=== PATIENT | male | born 1985 | race Caucasian/White ===

== ENCOUNTER 2019-04-08 09:28 | Emergency (ER) | payer OTHER, SELFPAY ==
[2019-04-08 09:28] VITALS: BP 150/104; PULSE 82; RESP 16; TEMP 36.6; O2SAT 97; BMI 38.2
--- NOTE | 2019-04-08 09:36 | CT_ITS ---
STUDY: CT ABDOMEN AND PELVIS WITHOUT CONTRAST REASON FOR EXAM: Male, 34 years old. Right lower quadrant pain with nausea and vomiting. RADIATION DOSAGE (If Supplied By Facility): CTDIvol = ( 23.54 ) mGy, DLP = ( 1456.82 ) mGycm TECHNIQUE: Transaxial images were obtained from the dome of the diaphragm to the symphysis pubis without oral contrast, and without intravenous contrast. Sagittal and coronal images were reconstructed. Individualized dose optimization techniques were used for this CT. COMPARISON: Comparison is made with prior study dated July 19, 2014. FINDINGS: The visualized lung bases are unremarkable. The visualized portions of the heart are within normal limits. Normal liver. Normal gallbladder and extrahepatic biliary system. Normal spleen. Normal pancreas. Normal bilateral adrenal glands. Mild degree of bright hydronephrosis and hydroureter due to a 5.2 mm calculus in the proximal right ureter just distal to the ureteropelvic junction. Mild degree of the perinephric stranding. Normal left kidney. Normal visualized stomach. Normal small intestine. Mild degree of circumferential wall thickening of the distal ileum and terminal ileum. This has improved as compared to prior study. The appendix is visualized and appears normal. Normal abdominal aorta. Normal inferior vena cava. There is borderline retroperitoneal lymphadenopathy with enlarged nodes no greater than 10mm in the short axis diameter. Normal urinary bladder. Normal abdominal wall. Minimal anterolisthesis of L5 on S1 with spondylolysis of the pars interarticularis of the L5 vertebrae. CT/Abdomen/Pelvis without Cont IMPRESSION: 5.2 mm calculus in the proximal right ureter just distal to the ureteropelvic junction causing mild right hydronephrosis and hydroureter. Thickening of the distal ileum and terminal ileum with no evidence of surrounding inflammatory change. Electronically Signed: Booker Burrows, at 10:37 EDT , Service support ,
--- NOTE | 2019-04-08 09:37 | ED.VISSUMM ---
- ER Visit Summary Date of Service: 04/08/19 Chief Complaint: [Abdominal pain] History of Present Illness: The patient is a 34 M [presents to the emergency department with complaint of pain to his right lower abdomen that started this morning. Patient states the pain initially was intermittent but now continuous. He rates it currently is a 6 out of 10. Patient states the pain radiates towards his right testicle. Patient states that over the weekend he had had some nondescript lower back pain as well. He denies urinary symptoms. He denies any fever. Patient has had 3 episodes of emesis this morning and also 3 episodes of loose stool. Patient has not had pain like this before. Patient has history of hypertension. He has no surgical history.] Physical Examination: [HEENT-PERRLA, EOMI. Cranial nerves II through XII grossly intact. TMs clear. Mucous membranes moist. No adenopathy. Cardiovascular-regular rate and rhythm without murmur or ectopy Lungs-clear to auscultation, chest wall stable without crepitus or subcu emphysema Abdomen-normoactive bowel sounds, soft. Patient has tenderness palpation over right lower quadrant with some guarding. There is no rebound, rigidity, or peritoneal signs. No real CVA tenderness on exam. Extremities-intact ?4, normal range of motion, normal pulses, atraumatic] Test Results: [CBC with differential obtained showed a white blood cell count of 8.6, hemoglobin 16, hematocrit 48, placed 251. Chemistries unremarkable. CT flank showed a 5.2 mm proximal ureteral stone with mild hydroureter. Urinalysis pending.] Emergency Department Course and Treatment: [She initially was medicated with Toradol 30 mg IV as well as morphine and Zofran. Patient had initially little pain relief and then was given a milligram of which reduces pain to a 1 out of 10. Case was discussed with urologist who recommends outpatient follow-up tomorrow with his office if we can get him under control from a pain perspective. Patient would prefer initially to go home and follow-up as an outpatient rather than admission for pain control.] Treatment Plan: [She will be given a prescription for Percocet as well as Zofran. Patient also will receive naproxen.] Disposition: [Discharged home in stable condition.] Impression: [Kidney stone with colic] This note was generated with [employer] dictation software. It may contain incorrect words, spelling, and punctuation that were not noted in review of the chart prior to signing ED Disposition - Plan for ED Patient: Referrals: Tomas Pinzon III, MD [Primary Care Provider] -
[2019-04-08] MEDS: Morphine 4 MG/ML Syringe IV (09:49)
[2019-04-08] MEDS: 0.9% Normal Saline 1,000 ML 125 ML IV ×2 (09:49→11:52)
[2019-04-08] MEDS: Ketorolac 30 MG/ML Syringe IV (09:50)
[2019-04-08] MEDS: Ondansetron 4 MG/2 ML Vial IV ×2 (09:50→11:52)
[2019-04-08 09:51] LABS: Absolute Lymphocyte Count 0.87 X10^3/uL (0.83-4.51); Absolute Neutrophil Count 6.8 X10^3/uL (2.0-7.7); Basophil# 0.05 X10^3/uL; Basophil% 0.6 % (0-1); Eosinophil# 0.11 X10^3/uL; Eosinophils% 1.3 % (0-5); Hematocrit 47.7 % (40-54); Hemoglobin 15.9 g/dL (13.0-16.5); Lymphocyte # 0.87 X10^3/ul (4.0); Lymphocyte % 10.2 % (19-41); Mean Corp Hgb Conc 33.3 g/dL (32-36); Mean Corpuscular Hgb 29.8 pg (27.0-32.0); Mean Corpuscular Volume 89.3 fL (80-94); Mean Platelet Vol. 9.8 fl (6.2-12.0); Monocyte# 0.72 X10^3/uL; Monocyte% 8.4 % (0-10); NRBC Flagged by Analyzer 0 % (0-5); Neutrophil # 6.78 X10^3/uL (2.7-7.7); Neutrophil % 79.1 % (47-70); Platelet Count 251 K/mm3 (150-450); RBC Distribution Width CV 11.8 % (11.6-14.6); RBC Distribution Width SD 38.6 fl (35.1-43.9); Red Blood Count 5.34 M/mm3 (4.6-6.2); White Blood Count 8.6 K/mm3 (4.4-11.0)
[2019-04-08 09:58] VITALS: BP 105/73
[2019-04-08 10:04] LABS: Anion Gap 7 (5-15); BUN 13 mg/dL (7-18); BUN/Creat Ratio 11.4 RATIO (10-20); Calcium,Total 9.1 mg/dL (8.5-10.1); Chloride 109 mmol/L (98-107); Creatinine, Serum 1.14 mg/dL (0.70-1.30); EST Glomerular Filtration Rate 78 mL/min (>60); Est Glom Filt Rate - Afr Amer 95 mL/min (>60); Estimated Creatinine Clearance 103.18 ml/min; Glucose 122 mg/dL (74-106); Potassium 3.9 mmol/L (3.5-5.1); Sodium Level 144 mmol/L (136-145)
[2019-04-08] MEDS: HYDROmorphone 1 MG/ML Syringe IV (10:51)
--- NOTE | 2019-04-08 11:13 | ED.DEP ---
ED Disposition - Plan for ED Patient: Instructions: KIDNEY STONE w/ Colic Prescriptions: Naproxen [Naprosyn] 500 mg PO BID PRN #20 tab Prescription Printed Oxycodone HCl/Acetaminophen [Percocet 5/325] 1 tab PO Q6H PRN PRN 3 Days #12 tab PRN Reason: Pain Prescription Printed Ondansetron [Zofran Odt] 4 mg PO Q8H PRN PRN #10 tab PRN Reason: Nausea Prescription Printed Referrals: Jesus Burgess MD [STAFF PHYSICIAN] - 1 Day
[2019-04-08 11:53] VITALS: BP 117/75; PULSE 55; RESP 16; O2SAT 95
[2019-04-08 12:01] LABS: Glucose, Dipstick Normal (Normal); Ketone-Dipstick 5 mg/dl (Negative); Leukocyte Esterase-Dipstick 25 /ul (Negative); Nitrite-Dipstick Negative (Negative); Occult Blood-Urine 250 /ul (Negative); Protein-Dipstick 100 mg/dl (Negative); Specific Gravity, Urine 1.025 (1.002-1.030); Urine Clarity Sl. Cloudy (Clear); Urine Urobilinogen 1 mg/dl (Normal)
[2019-04-08 12:02] LABS: Color, Urine DARK YELLOW (Yellow); Urine Bilirubin Dipstick 1 mg/dL (Negative)
[2019-04-08 12:09] LABS: Bacteria 2+ /hpf (None Seen); Calcium Oxalate Crystals Ur 2+ /hpf (<or=2+); Mucous, Urine 2+ /hpf (<or=2+); Red Blood Cells-Urine > 100 SEEN /hpf (0-5); Squamous Epithelial Cells - UA 0-5 SEEN /hpf (0-5); White Blood Cells 5-10 SEEN /hpf (0-5)
[2019-04-08 12:36] VITALS: BP 128/67; PULSE 71; RESP 15; O2SAT 99
== END 2019-04-08 12:38 | disposition home or self-care (01) ==
LOC: ED 09:44
PROVIDERS: Emergency Provider Emergency Medicine; Family Provider Family Medicine; PCP Family Medicine
DX: N13.2 Hydronephrosis with renal and ureteral calculous obstruction (principal); I10 Essential (primary) hypertension; R11.2 Nausea with vomiting, unspecified; Z79.899 Other long term (current) drug therapy
CPT/HCPCS: 74176; 80048; 81001; 85025; 96361; 96374; 96375; 96376; 99283; J7030; J2405

== ENCOUNTER → 2019-04-23 14:28 | Outpatient (CLI) | payer OTHER, SELFPAY ==
[2019-04-08 09:28] VITALS: BMI 38.2
--- NOTE | 2019-04-23 14:35 | RAD_ITS ---
STUDY: X-RAY - ABDOMEN/PELVIS REASON FOR EXAM: Male, 34 years old. Kidney stone TECHNIQUE: Two AP supine views of the abdomen and pelvis. COMPARISON: CT dated 04/08/2019 FINDINGS: There are no definite urinary calculi identified. The right ureteral stone seen on the prior CT is not identified on this exam. There is no bowel obstruction. There is air and stool to the level of the rectum. The visualized osseous structures are within normal limits. RAD/Abdomen Single View IMPRESSION: No definite urinary calculi identified. If indicated, further evaluation with CT can BE performed. No bowel obstruction. Electronically Signed: Angel Gallo, at 15:08 EDT Tel , Service support ,
== END ==
PROVIDERS: Family Provider Family Medicine; PCP Family Medicine; Referring Provider Urology; Visit Provider Urology
DX: N20.0 Calculus of kidney (principal)
CPT/HCPCS: 74018

== ENCOUNTER 2019-05-01 14:28 | Day surgery (SDC) | payer OTHER, SELFPAY ==
[2019-05-01 14:41] VITALS: BP 154/79; PULSE 80; RESP 18; TEMP 37.1; O2SAT 99; BMI 38.7
[2019-05-01] MEDS: Lactated Ringers 1,000 ML 100 ML IV (14:48)
--- NOTE | 2019-05-01 14:50 | CT_ITS ---
STUDY: CT ABDOMEN AND PELVIS WITHOUT CONTRAST REASON FOR EXAM: Male, 34 years old. History of right ureteral calculus. RADIATION DOSAGE (If Supplied By Facility): CTDIvol = ( 14.8 ) mGy, DLP = ( 840.76 ) mGycm TECHNIQUE: Transaxial images were obtained from the dome of the diaphragm to the symphysis pubis without oral contrast, and without intravenous contrast. Sagittal and coronal images were reconstructed. Individualized dose optimization techniques were used for this CT. COMPARISON: Comparison is made with prior study dated April 08, 2019. FINDINGS: The visualized lung bases are unremarkable. The visualized portions of the heart are within normal limits. Normal liver. Normal gallbladder and extrahepatic biliary system. Normal spleen. Normal pancreas. Normal bilateral adrenal glands. Mild residual right hydronephrosis and right hydroureter due to a 5.2 mm calculus in the mid distal aspect of the right ureter. This has migrated slightly, that as compared to prior study. Normal left kidney. Normal visualized stomach. Normal small intestine. Normal colon. The appendix is visualized and appears normal. Normal abdominal aorta. Normal inferior vena cava. Normal retroperitoneum. Normal urinary bladder. Normal abdominal wall. Normal osseous structures. CT/Abdomen/Pelvis without Cont IMPRESSION: Persistent 5.2 mm calculus in the mid distal portion of the right ureter causing mild right hydronephrosis and hydroureter. The calculus has migrated slightly, as compared to prior study. Electronically Signed: Booker Burrows, at 15:26 EDT , Service support ,
--- NOTE | 2019-05-01 15:42 | DCINST_ITS ---
Discharge Diet: Light diet - advance as tolerated Discharge Activity: Return to Normal Activity Call your doctor if your incision/area has: Continuous Slow Oozing, Sudden Increased Bleeding, Increased Pain/ Swelling, Increased Redness, Foul Smelling Discharge, Swelling at the incision site Call your doctor if you observe: Fever of 101 or Higher Suture Line Care: Avoid Pulling/Pushing, Avoid Pinching/Bending Instructions: Treating Kidney Stones: Ureteroscopic Stone Removal Allergies/Adverse Reactions: Allergies No Known Allergies Allergy (Verified 05/01/19 14:40) Medications to take at Discharge Allopurinol [Zyloprim] 600 mg PO QHS 07/19/14 Amlodipine [Norvasc] 5 mg PO QHS 07/19/14 Ciprofloxacin [Cipro] 500 mg PO BID #6 tab 05/01/19 Oxycodone HCl/Acetaminophen [Percocet 5/325] 1 tab PO Q4H PRN PRN 5 Days #14 tab 05/01/19 Phenazopyridine [Pyridium] 100 mg PO TID #14 tab 05/01/19 The following prescriptions were given: Ciprofloxacin [Cipro] 500 mg PO BID #6 tab Prescription Printed Oxycodone HCl/Acetaminophen [Percocet 5/325] 1 tab PO Q4H PRN PRN 5 Days #14 tab PRN Reason: Pain Prescription Printed Phenazopyridine [Pyridium] 100 mg PO TID #14 tab Prescription Printed Primary Care Physician: Tomas Pinzon III, MD [Primary Care Provider] - Test Results: Test results from this visit will be discussed in further detail at your follow- up appointment, if applicable. Please Follow Up With: Jesus Burgess MD When: please call to make an appointment.
[2019-05-01] MEDS: Cefazolin 2 GM in 0.9% Normal Saline 100 ML IV (15:51)
--- NOTE | 2019-05-01 16:21 | PCM.OPRPT ---
Report of Operation Date of Procedure: 05/01/19 Pre-Operative Diagnosis: Right ureteral calculi Post-Operative Diagnosis: Same Surgery/Procedure Performed:: Cystoscopy, right retrograde pyelogram, i interpretation of fluoroscopic images, balloon dilation of the right ureter, right ureteroscopy laser lithotripsy of stones and stent. Description of Surgical Findings:: 34-year-old male taken back to the operating room at the smooth induction of general anesthesia he was placed in dorsolithotomy position went to the bladder with a 21 Congolese rigid cystourethroscope the entire length urethra is normal pendulous urethra normal bulbar urethra normal prostate normal inside the bladder identified the trigone and cannulated the right ureteral orifice with a balloon dilator and a Glidewire performed a retrograde pyelogram could see the stone on the retrograde pyelogram still in the mid ureter and then advanced a wire up to the stone balloon dilated distal ureter with a 15 Congolese 10 cm balloon dilator once this was accomplished then over the wire went in with a flexible ureteroscope I encountered the stone and then used a 270 ?m laser fiber and performed laser lithotripsy and stone broke the stone up a little tiny pieces after lasering stone completely successfully, went up to the kidney, inspect the kidney of the stones, tiny fragments were seen along the course of the ureter put a wire up into the kidney on the right side, then placed a stent 6 Congolese by 26 cm stent with a string of the stent for easy extraction and then pulled the wire and the stent coiled in the kidney and bladder in good position patient, anesthetic reversed plan to see him back next week with a KUB and if everything is clear we will pull the stent. Type of Anesthesia:: General Drains: stent - Admit VTE Documentation VTE Present on Admission: No VTE Mechan Device Prophylaxis: SCD's
[2019-05-01 16:34] VITALS: BP 154/79; BP 171/102; PULSE 78; RESP 16; TEMP 36.6; O2SAT 95
[2019-05-01 16:45] VITALS: BP 141/90; BP 154/79; PULSE 75; RESP 16; O2SAT 93
[2019-05-01 17:00] VITALS: BP 154/79; BP 171/109; PULSE 60; RESP 16; O2SAT 95
[2019-05-01] MEDS: Ketorolac 15 MG/ML Vial IV (17:00)
[2019-05-01 17:10] VITALS: BP 149/97; BP 154/79; PULSE 70; RESP 16; TEMP 36.5; O2SAT 92
[2019-05-01 17:51] VITALS: BP 152/98; BP 154/79; PULSE 60; RESP 16; TEMP 36.2; O2SAT 95
== END 2019-05-01 18:05 | disposition home or self-care (01) ==
LOC: SDC 14:32 → AC 14:33
PROVIDERS: Family Provider Family Medicine; PCP Family Medicine; Referring Provider Urology; Visit Provider Urology
PROC: 0TJ98ZZ Inspection of Ureter, Via Natural or Artificial Opening Endoscopic (ICD-10-PCS; CPT 52352; principal; 2019-05-01 16:15)
DX: N20.2 Calculus of kidney with calculus of ureter (principal); R31.29 Other microscopic hematuria; I10 Essential (primary) hypertension; M10.9 Gout, unspecified; Z79.899 Other long term (current) drug therapy
CPT/HCPCS: 52356; 74176; 76000; J7120; C1726; C1769; C2617; J2405

== ENCOUNTER → 2021-06-11 08:47 | Outpatient (CLI) | payer OTHER, SELFPAY ==
[2021-06-11 09:52] LABS: Absolute Neutrophil Count 5.6 X10^3/uL (2.0-7.7); Basophil# 0.07 X10^3/uL; Basophil% 0.9 % (0-1); Eosinophil# 0.11 X10^3/uL; Eosinophils% 1.3 % (0-5); Hematocrit 49.4 % (40-54); Hemoglobin 16.3 g/dL (13.0-16.5); Lymphocyte % 20.8 % (19-41); Mean Corpuscular Hgb 29.2 pg (27.0-32.0); Mean Corpuscular Volume 88.4 fL (80-94); Mean Platelet Vol. 9.7 fl (6.2-12.0); Monocyte# 0.67 X10^3/uL; Monocyte% 8.2 % (0-10); NRBC Flagged by Analyzer 0 % (0-5); Neutrophil # 5.58 X10^3/uL (2.7-7.7); Neutrophil % 68.4 % (47-70); Platelet Count 319 K/mm3 (150-450); RBC Distribution Width CV 12.2 % (11.6-14.6); RBC Distribution Width SD 39.6 fl (35.1-43.9); Red Blood Count 5.59 M/mm3 (4.6-6.2); White Blood Count 8.2 K/mm3 (4.4-11.0)
[2021-06-11 10:21] LABS: ALB/GLOB Ratio 1.1 RATIO (0.9-2.4); AST(SGOT) 29 U/L (15-37); Alanine Aminotransfer ALT/SGPT 47 U/L (16-61); Albumin, Serum 4.1 g/dL (3.2-5.0); Alkaline Phosphatase 85 U/L (45-117); Anion Gap 9 (5-15); BUN 11 mg/dL (7-18); BUN/Creat Ratio 11.6 RATIO (10-20); Calcium,Total 9.4 mg/dL (8.5-10.1); Chloride 103 mmol/L (98-107); Cholesterol 182 mg/dL (200); Creatinine, Serum 0.95 mg/dL (0.70-1.30); EST Glomerular Filtration Rate 96 mL/min (>60); Est Glom Filt Rate - Afr Amer 116 mL/min (>60); Globulin 3.8 g/dL (2.2-4.2); Glucose 102 mg/dL (74-106); High Density Lipoprotein 36 mg/dL; Lipase 127 U/L (73-393); Potassium 4.1 mmol/L (3.5-5.1); Protein, Total 7.9 g/dL (6.4-8.2); Sodium Level 137 mmol/L (136-145); Thyroid Stim Hormone (TSH) 1.06 uIU/mL (0.358-3.74); Triglycerides 222 mg/dL; Uric Acid 6.5 mg/dL (3.5-7.2); Very Low Density Lipoprotein 44 mg/dL (5-40)
[2021-06-11 10:52] LABS: Hepatitis C Antibody Non-Reactive (Nonreactive)
[2021-06-14 16:09] LABS: Endomysial Antibody IgA Negative (Negative)
[2021-06-14 19:34] LABS: Deamidated Gliadin IgA 4 units (0-19); Deamidated Gliadin IgG 1 units (0-19); Immunoglobulin A 204 mg/dL (90-386); t-Transglutaminase IgA <2 U/mL (0-3)
== END ==
PROVIDERS: PCP Family Medicine; Referring Provider Family Medicine; Visit Provider Family Medicine
DX: I10 Essential (primary) hypertension (principal); R19.7 Diarrhea, unspecified; M10.9 Gout, unspecified; R10.10 Upper abdominal pain, unspecified; Z13.220 Encounter for screening for lipoid disorders
CPT/HCPCS: 36415; 80053; 80061; 82784; 83516; 83690; 84443; 84550; 85025; 86255; 86803

== ENCOUNTER → 2021-06-17 08:14 | Outpatient (CLI) | payer OTHER, SELFPAY ==
--- NOTE | 2021-06-17 08:28 | US_ITS ---
STUDY: ABDOMINAL ULTRASOUND - RIGHT UPPER QUADRANT REASON FOR VISIT: Male, 36 years old PAIN , STOOL COLOR CHANGE, FAMILY HX BILIARY DISEASE TECHNIQUE: Ultrasound evaluation of the right upper quadrant was performed with real-time and static alfaro-scale imaging. TECHNICAL QUALITY: Limited. Examination limited by bowel gas. COMPARISON: None. FINDINGS: Liver: The liver measures 18.4 cm. There is increased echogenicity consistent with fatty infiltration. The bile ducts are within normal limits. There is hepatic color flow. The direction of portal flow is hepatopetal. There is no demonstrated mass lesion. Gallbladder: Normal distended gallbladder. The gallbladder wall measures 2.6 mm. There is a negative sonographic Plata''s sign. There is no pericholecystic fluid. There are no gallstones. Common Bile Duct (C.B.D.): The common bile duct measures 3. mm. Pancreas: Normal size of the head, body and tail of the pancreas. There is increased echogenicity of the pancreas. There is no demonstrated pancreatic mass or cyst. Right Kidney: Normal size of the right kidney. The right kidney measures 12.3 cm x 5.4 cm x 4.7 cm. Normal renal cortex. The right cortex measures 1.3 cm. There is no demonstrated renal mass or cyst. There is no right hydronephrosis. US/Abdomen Limited IMPRESSION: Borderline hepatomegaly. Fatty infiltration of the liver. Electronically Signed: Booker Burrows MD at 9:53 EDT , Service support ,
== END ==
PROVIDERS: PCP Family Medicine; Visit Provider Family Medicine
DX: R10.10 Upper abdominal pain, unspecified (principal); R19.7 Diarrhea, unspecified
CPT/HCPCS: 76705; 87177; 87209

== ENCOUNTER → 2021-07-05 09:17 | Outpatient (CLI) | payer OTHER, SELFPAY ==
--- NOTE | 2021-07-05 09:25 | NM_ITS ---
CLINICAL: 34-year-old male with reported history of abdominal pain. RADIONUCLIDE HEPATOBILIARY SCINTIGRAPHY COMPARISON: Abdominal ultrasound report 06/17/2021 FINDINGS: Following the intravenous administration of 5.2 mCi of 99m Tc Mebrofenin, hepatobiliary images reveal: 1. Relatively prompt and homogeneous radiopharmaceutical concentration is noted by a normal sized liver. No parenchymal defects are identified. 2. Gallbladder activity is identified at 15 minutes post radiopharmaceutical administration. 3. Small intestinal tract is observed at 30 minutes following tracer provision. 4. Washout of the radiopharmaceutical by the hepatic parenchyma appears qualitatively normal. Cholecystokinin (0.02 ug/kg) was administered intravenously over a 30-minute period. The post CCK gallbladder ejection fraction calculated at 20 minutes following Cholecystokinin administration was noted to be 52.0 % (normal greater than 35%). During 30 minutes of post CCK imaging, quantitative refilling of the gallbladder is observed. There is scintigraphic evidence of post CCK duodenal gastric reflux. NM/Hepatobilliary Img w/Pharm Int IMPRESSION: 1. A gallbladder ejection fraction calculated to be greater than 35% following the administration of Cholecystokinin makes the probability of functional hepatobiliary disease (gallbladder dyskinesia) and/or organic hepatobiliary disease (chronic acalculous cholecystitis and/or cystic duct syndrome) to be low. (Michael Glover et al, Journal of Nuclear Medicine 32:1695, 1990). 2. There is scintigraphic evidence of post CCK duodenal-gastric reflux. (Mayito et al, Nucl Med Sandrine Preeti Press pg. 35, 1980). 3. An encountered normal gallbladder ejection fraction with refilling of the gallbladder following CCK administration may represent the presence of Sphincter of Oddi dysfunction. Correlation with Sphincter of Oddi manometry may be of benefit. (Rosalba and Rosalba, J Nucl Med 38:1824, 1997). Electronically Signed: Med You DO at 22:36 EDT Tel , Service support ,
== END ==
PROVIDERS: PCP Family Medicine; Referring Provider Family Medicine; Visit Provider Family Medicine
DX: R10.10 Upper abdominal pain, unspecified (principal)
CPT/HCPCS: 78227; A9537; J2805

== ENCOUNTER → 2021-08-03 11:48 | Outpatient (CLI) | payer OTHER, SELFPAY ==
[2021-08-03 12:14] LABS: Erythrocyte Sedimentation Rate 17 mm/hr (0-20)
[2021-08-03 12:18] LABS: Absolute Neutrophil Count 8.1 X10^3/uL (2.0-7.7); Basophil# 0.06 X10^3/uL; Basophil% 0.6 % (0-1); Eosinophil# 0.03 X10^3/uL; Eosinophils% 0.3 % (0-5); Hematocrit 48.9 % (40-54); Hemoglobin 16.4 g/dL (13.0-16.5); Lymphocyte % 15.4 % (19-41); Mean Corp Hgb Conc 33.5 g/dL (32-36); Mean Corpuscular Hgb 28.9 pg (27.0-32.0); Mean Corpuscular Volume 86.1 fL (80-94); Mean Platelet Vol. 9.4 fl (6.2-12.0); Monocyte# 0.59 X10^3/uL; Monocyte% 5.7 % (0-10); NRBC Flagged by Analyzer 0 % (0-5); Neutrophil # 8.07 X10^3/uL (2.7-7.7); Neutrophil % 77.7 % (47-70); Platelet Count 435 K/mm3 (150-450); RBC Distribution Width CV 12.2 % (11.6-14.6); RBC Distribution Width SD 38.5 fl (35.1-43.9); Red Blood Count 5.68 M/mm3 (4.6-6.2); White Blood Count 10.4 K/mm3 (4.4-11.0)
[2021-08-03 13:00] LABS: ALB/GLOB Ratio 1.1 RATIO (0.9-2.4); AST(SGOT) 20 U/L (15-37); Alanine Aminotransfer ALT/SGPT 32 U/L (16-61); Albumin, Serum 4.4 g/dL (3.2-5.0); Alkaline Phosphatase 94 U/L (45-117); Anion Gap 8 (5-15); BUN 9 mg/dL (7-18); CRP < 2.90 mg/L (0.0-3.0); Calcium,Total 10.1 mg/dL (8.5-10.1); Chloride 103 mmol/L (98-107); EST Glomerular Filtration Rate 90 mL/min (>60); Est Glom Filt Rate - Afr Amer 109 mL/min (>60); Globulin 4.1 g/dL (2.2-4.2); Glucose 102 mg/dL (74-106); LDH 208 U/L (87-241); Potassium 3.9 mmol/L (3.5-5.1); Protein, Total 8.5 g/dL (6.4-8.2); Sodium Level 137 mmol/L (136-145); Thyroid Stim Hormone (TSH) 1.19 uIU/mL (0.358-3.74)
[2021-08-06 06:07] LABS: Endomysial Antibody IgA Negative (Negative); Immunoglobulin A 260 mg/dL (90-386); Immunoglobulin E 36 IU/mL (6-495); Immunoglobulin G 938 mg/dL (603-1613)
[2021-08-06 08:18] LABS: Immunoglobulin M 93 mg/dL (20-172); t-Transglutaminase IgA <2 U/mL (0-3)
== END ==
PROVIDERS: PCP Family Medicine; Referring Provider Internal Medicine Gastroenterology; Visit Provider Internal Medicine Gastroenterology
DX: R19.7 Diarrhea, unspecified (principal)
CPT/HCPCS: 36415; 80053; 82784; 82785; 83516; 83615; 84443; 85025; 85652; 86140; 86255

== ENCOUNTER → 2021-08-04 | Outpatient (CLI) | payer OTHER, SELFPAY ==
[2021-08-06 08:18] LABS: Giardia Lamblia, Stool EIA Negative (Negative)
== END | disposition home or self-care (01) ==
LOC: LABSPEC 06:29
PROVIDERS: PCP Family Medicine; Referring Provider Internal Medicine Gastroenterology; Visit Provider Internal Medicine Gastroenterology
DX: R19.7 Diarrhea, unspecified (principal)
CPT/HCPCS: 87329; 87493

== ENCOUNTER → 2021-08-12 07:05 | Outpatient (CLI) | payer OTHER, SELFPAY ==
--- NOTE | 2021-08-12 07:08 | US_ITS ---
STUDY: ABDOMINAL ULTRASOUND - ELASTOGRAPHY REASON FOR VISIT: Male, 36 years old. Fatty infiltration of the liver. TECHNIQUE: Liver stiffness measurements were obtained on a Owlr RS 85 ultrasound machine using a CA 1-7 probe following the SRU guidelines. 3 measurements were obtained using a 2-D-SWE method. The IQR/M was 16% suggesting a quality data set. TECHNICAL QUALITY: Adequate. COMPARISON: Comparison is made with prior examination dated 06/17/2021. FINDINGS: Liver: Fatty infiltration of the liver. Median liver stiffness measured 8 kPa. US/Elastography Parenchyma/Organ IMPRESSION: Liver stiffness measures 8 kPa compatible with F2 Metavir score. Electronically Signed: Booker Burrows MD at 8:52 EST , Service support ,
== END ==
PROVIDERS: PCP Family Medicine; Referring Provider Internal Medicine Gastroenterology; Visit Provider Internal Medicine Gastroenterology
DX: K76.0 Fatty (change of) liver, not elsewhere classified (principal)
CPT/HCPCS: 76981

== ENCOUNTER → 2021-08-13 15:49 | Outpatient (CLI) | payer OTHER, SELFPAY ==
[2021-08-13 17:06] LABS: Hemoglobin A1c 5.1 % (3.8-5.6)
== END ==
PROVIDERS: Nurse Practitioner Adult Health; PCP Family Medicine; Visit Provider Nurse Practitioner Gerontology
DX: K76.0 Fatty (change of) liver, not elsewhere classified (principal); E66.9 Obesity, unspecified
CPT/HCPCS: 36415; 83036

== ENCOUNTER 2021-09-24 07:56 | Outpatient (CLI) | payer OTHER, SELFPAY ==
--- NOTE | 2021-09-24 07:58 | CT_ITS ---
STUDY: CT ABDOMEN AND PELVIS WITH CONTRAST REASON FOR EXAM: Male, 36 years old. IBD workup. 2 left history of upper abdominal pain and diarrhea. RADIATION DOSAGE (If Supplied By Facility): CTDIvol = ( 17.02 ) mGy, DLP = ( 1434.3 ) mGycm TECHNIQUE: Transaxial images were obtained from the dome of the diaphragm to the symphysis pubis with oral contrast. Oral and amp; IV Readi-CAT and amp; 100mL Isovue-300 was administered. Sagittal and coronal images were reconstructed. Individualized dose optimization techniques were used for this CT. COMPARISON: Comparison is made with prior study dated 05/01/2019. FINDINGS: The visualized lung bases are unremarkable. The visualized portions of the heart are within normal limits. Normal liver. Normal gallbladder and extrahepatic biliary system. Normal spleen. Normal pancreas. Normal bilateral adrenal glands. Normal right kidney. Normal left kidney. Normal visualized stomach. There is evidence of circumferential wall thickening and mild inflammatory changes in the terminal ileum. This extends into the region of the ileocecal valve and proximal cecum. This is in keeping with the Crohn''s disease. Normal colon. The appendix is visualized and appears normal. Normal abdominal aorta. Normal inferior vena cava. There is borderline retroperitoneal lymphadenopathy with enlarged nodes no greater than 10mm in the short axis diameter. Normal urinary bladder. Normal abdominal wall. Normal osseous structures. CT/Abdomen/Pelvis WITH Contrast IMPRESSION: Circumferential wall thickening and mild degree inflammatory changes involving the terminal ileum with extension into the region of the ileocecal valve and proximal cecum. This is in keeping with the Crohn''s disease. Electronically Signed: Booker Burrows MD at 9:20 EST , Service support ,
[2021-09-24 08:20] LABS: CREATININE FINGERSTICK 0.9 mg/dL (0.70-1.30); EGFR FINGERSTICK > 60.0000 mL/min (>60)
== END 2021-09-24 23:59 | disposition short-term general hospital (02) ==
LOC: CT 07:58
PROVIDERS: PCP Family Medicine; Referring Provider Internal Medicine Gastroenterology; Visit Provider Internal Medicine Gastroenterology
DX: R19.7 Diarrhea, unspecified (principal)
CPT/HCPCS: 74177; Q9967

== ENCOUNTER 2021-10-12 08:41 | Outpatient (CLI) | payer OTHER, SELFPAY ==
[2021-10-12 09:54] LABS: Absolute Lymphocyte Count 1.82 X10^3/uL (0.83-4.51); Absolute Neutrophil Count 5.8 X10^3/uL (2.0-7.7); Basophil# 0.05 X10^3/uL; Basophil% 0.6 % (0-1); Eosinophil# 0.06 X10^3/uL; Eosinophils% 0.7 % (0-5); Hemoglobin 16.2 g/dL (13.0-16.5); Lymphocyte # 1.82 X10^3/ul (0.83-4.51); Mean Corp Hgb Conc 33.1 g/dL (32-36); Mean Corpuscular Hgb 29.6 pg (27.0-32.0); Mean Corpuscular Volume 89.6 fL (80-94); Mean Platelet Vol. 9.8 fl (6.2-12.0); Monocyte# 0.55 X10^3/uL; Monocyte% 6.6 % (0-10); NRBC Flagged by Analyzer 0 % (0-5); Neutrophil # 5.78 X10^3/uL (2.7-7.7); Neutrophil % 69.7 % (47-70); Platelet Count 340 K/mm3 (150-450); RBC Distribution Width CV 12.5 % (11.6-14.6); Red Blood Count 5.47 M/mm3 (4.6-6.2); White Blood Count 8.3 K/mm3 (4.4-11.0)
[2021-10-12 10:03] LABS: Erythrocyte Sedimentation Rate 23 mm/hr (0-20)
[2021-10-12 10:25] LABS: ALB/GLOB Ratio 1.1 RATIO (0.9-2.4); AST(SGOT) 16 U/L (15-37); Alanine Aminotransfer ALT/SGPT 33 U/L (16-61); Albumin, Serum 3.9 g/dL (3.2-5.0); Alkaline Phosphatase 80 U/L (45-117); Anion Gap 6 (5-15); BUN 12 mg/dL (7-18); BUN/Creat Ratio 13.2 RATIO (10-20); CRP < 2.90 mg/L (0.0-3.0); Calcium,Total 9.3 mg/dL (8.5-10.1); Chloride 106 mmol/L (98-107); Creatinine, Serum 0.91 mg/dL (0.70-1.30); EST Glomerular Filtration Rate 100 mL/min (>60); Est Glom Filt Rate - Afr Amer 121 mL/min (>60); Globulin 3.7 g/dL (2.2-4.2); Glucose 96 mg/dL (74-106); LDH 188 U/L (87-241); Potassium 3.7 mmol/L (3.5-5.1); Protein, Total 7.6 g/dL (6.4-8.2); Sodium Level 140 mmol/L (136-145)
[2021-10-16 17:07] LABS: HEPATITIS B SURFACE AG Negative (Negative); Hepatitis A IgM Antibody Negative (Negative); Hepatitis B Core AB IgM Negative (Negative); Immunoglobulin A 213 mg/dL (90-386); Immunoglobulin E 60 IU/mL (6-495); Immunoglobulin G 832 mg/dL (603-1613); QNTFERON TB Mitogen Value > 10.00 IU/mL (.); QNTFERON TB Nil Value 0.02 IU/mL (.); QNTFERON TB1+ Ag Value 0.04 IU/mL (.); QNTFERON TB2+ Ag Value 0.02 IU/mL (.)
[2021-10-17 08:35] LABS: Hep C Antibodies <0.1 s/co ratio (0.0-0.9); Immunoglobulin M 94 mg/dL (20-172); QNTIFERON TB Positive Criteria Negative (Negative)
== END 2021-10-12 23:59 | disposition home or self-care (01) ==
LOC: LAB 08:42
PROVIDERS: PCP Family Medicine; Referring Provider Internal Medicine Gastroenterology; Visit Provider Internal Medicine Gastroenterology
DX: R19.7 Diarrhea, unspecified (principal)
CPT/HCPCS: 36415; 80053; 80074; 82784; 82785; 83615; 85025; 85652; 86140; 86480

== ENCOUNTER 2021-11-12 10:02 | Outpatient (CLI) | payer OTHER, SELFPAY ==
[2021-11-12 11:51] LABS: HIV - WCH Non-Reactive (Nonreactive); Rubella IgG Reactive (Nonreactive)
[2021-11-16 16:46] LABS: B. pertussis IgG 1.88 index (0.00-0.94); Mumps Antibody, IgM 3.12 AU (0.00-0.79); V-Zoster IgG (Immunity) 1159 index (Immune >165)
== END 2021-11-12 23:59 | disposition home or self-care (01) ==
LOC: LAB 10:03
PROVIDERS: PCP Family Medicine; Visit Provider Internal Medicine Gastroenterology
DX: K50.90 Crohn's disease, unspecified, without complications (principal)
CPT/HCPCS: 36415; 86703; 86735; 86762; 86787

== ENCOUNTER 2021-12-06 14:13 | Outpatient (CLI) | payer OTHER, SELFPAY ==
[2021-12-06] MEDS: 0.9% NaCl Peripheral Flush Adult/Peds IV (14:24)
[2021-12-06] MEDS: 0.9% NaCl IVPB Med Flush (250 mL) 15 ML IV (14:44)
[2021-12-06 14:50] VITALS: BP 145/82; PULSE 75; RESP 16; O2SAT 98
[2021-12-06 16:08] VITALS: BP 144/88; PULSE 66; RESP 16; TEMP 36.1; O2SAT 100
== END 2021-12-06 23:59 | disposition home or self-care (01) ==
LOC: MEDOUTP 14:14
PROVIDERS: PCP Family Medicine; Referring Provider Internal Medicine Gastroenterology; Visit Provider Internal Medicine Gastroenterology
DX: K50.90 Crohn's disease, unspecified, without complications (principal)
CPT/HCPCS: 96365; J7050; A4216; J3358

== ENCOUNTER 2021-12-09 06:09 | Day surgery (SDC) | payer OTHER, SELFPAY ==
[2021-12-09 06:34] VITALS: BP 149/86; PULSE 59; RESP 18; TEMP 36.8; O2SAT 99; BMI 36.9
[2021-12-09] MEDS: Lactated Ringers 1,000 ML 15 ML IV (06:40)
--- NOTE | 2021-12-09 07:12 | PCM.HP.BLA ---
History and Physical Date of Admission: 12/09/21 KALEIGH BLACK, is a 36 M who presents to the office today for the evaluation of occasional dysphagia, bloating, nausea, decreased appetite and mucousy stools. This originally started back in 2013 when he was having some mucousy stools. His stools were checked for enteric pathogens. That was negative along with being checked for ova and parasites. That was negative. He had a colonoscopy that did not show any abnormalities. Biopsies throughout the colon did not show any abnormalities. He also had an upper endoscopy that showed mild reflux disease and mild gastritis in the stomach. Biopsies did not reveal any signs of microscopic colitis. Biopsies were positive for gastritis which was H. pylori negative. He is having difficulty with nonlocalized abdominal pain of varying intensitry throughout his abdomen being present for the last six months with increase in frequency and intensity in the last couple of days. Increased mucous noted in his stool which is typically diarrhea for last five days. Normal bowel movements are a liquid yellow color for the last six months. Reports pressure in his throat without difficulty swallowing but with mild regurgitation with belching. 06/17/21 abdomen ultrasound showed liver measurement 18.4cm with fatty infiltration. HIDA scan performed 07/05/21 gallbladder ejection fraction greated than 35%. Scintigraphic evidence of post CCK duodenal-gastric reflux. Possible presence of Sphincter of Oddi dysfunction. Galbladder is present. He recently underwent IBD SGI testing after having more weight loss and diarrhea and it was positive for Crohn's disease. ROS Const Constitutional: Positive for fatigue and weight change Gastro GI: Positive for abdominal pain, change in bowel habits, diarrhea, heartburn and nausea/dyspepsia Musc Musculoskeletal: Positive for back pain Endo Endocrine: Positive for fatigue and weight change Exam Const General: cooperative and comfortable Nutritional Appearance: average body habitus and well nourished [facility] Head: normal to inspection Ears: hearing grossly normal bilaterally Nose: external nose normal Face and sinus: normal facial exam Mouth: oral mucosae normal Throat: posterior oropharynx normal Eyes General: appearance normal, both eyes and all related structures Neck Neck: normal visual inspection Chest Chest palpation & inspection: normal inspection of the chest and normal palpation of entire chest wall Resp Effort & Inspection: normal respiratory effort Auscultation: Bilateral: Clear to Auscultation Cardio Palpation: normal PMI Rate: regular rate Rhythm: regular rhythm GI Inspection: normal to inspection Auscultation: normal bowel sounds Percussion: normal to percussion Palpation: no hepatosplenomegaly Skin General: no rashes or lesions noted Neuro General: patient alert Extrem General: normal to inspection Psych Affect: normal affect Quality Reporting Tobacco Screening ([facility] 138) Smoking Status: Never smoker Assessment and Plan Assessment and Plan (1) Diarrhea: Status: Acute Orders: Orders: CRP Today Erythrocyte Sed Rate Today Giardia Lamblia, Stool EIA Today Comprehensive Metabolic Profil Today LDH Today Thyroid Stim Hormone (TSH) Today CBC W/Diff, Automated Today CDIFF (PCR) Today Celiac Disease Profile Today Immunoglobulin E Today Immunoglobulin G Today Immunoglobulin M Today Plan - Dr. Mcmullen Friend, DO: His diarrhea sounds like he has IBS with diarrhea. He may be a good candidate for Xifaxan therapy I will check his stools for Giardia. I will also check his blood for any inflammatory markers, celiac disease, and check his antibody levels, along with his thyroid. He will be on hyoscyamine every 6 hours as needed for crampy abdominal pain. (2) Fatty liver disease, nonalcoholic: Status: Acute Patient Instructions: We will have to get a elastography to see if he has any scarring in the liver. We will also need to get a hemoglobin A1c and cholesterol panel. (3) Dysphagia: Status: Acute Plan - Dr. Mcmullen Friend, DO: There was no pathology seen on his upper endoscopy. That was done by another physician. I will put him on nystatin swish and swallow and PPI therapy. (4) we will perform an upper and lower endoscopy for evaluation of the small bowel. Plan Details Other Medications: New: nystatin swish and swallow 1 mL PO DAILY 480 mL 0RF ondansetron 4 mg PO Q6H 60 tabs 0RF hyoscyamine sulfate 0.125 mg PO BID-QID PRN 30 tabs 0RF dyspepsia All other 16 review of systems negative except those pertinent positive mentioned HPI.
--- NOTE | 2021-12-09 07:15 | EGD_PTH ---
PATIENT: KALEIGH BLACK LOC: EN U#:[id number] AGE/SX: 36/M ROOM: RE12/09/[address]: Dr. Benedict Canales DO : 1985 BED: DIS: 12/09/2021 SPEC #: [id number] RECD: 12/09/21 11:29 STATUS: KANA MARCO #: [id number] AISHA: 12/09/21 07:[address]: Benedict Canales DEPT: SURGICAL PATHOLOGY RECD BY: Carley Vazquez ENTERED: 12/09/21 12:34 SP TYPE: EGD BIOPSY DEBO DR: Dr. Paul Pope MD Tissues: A - Duodenum, NOS B - Duodenum, NOS C - COLON BIOPSY D - Ileum, NOS E - Sigmoid colon biopsy Procedures: Surgery Specimen Level IV HEADER OPERATION: Colonoscopy, [place] [place] biopsy PRE-OP DIAGNOSIS: Diarrhea, fatty liver disease, nonalcoholic, dysphagia TISSUE SUBMITTED: A ? Duodenum biopsy, B ? Duodenal mass biopsy, C ? Terminal ileum stricture biopsy, D ? Distal ileum biopsy, E ? Sigmoid biopsy MICROSCOPIC DIAGNOSIS A. Duodenum, biopsy: Fragments of duodenal mucosa with mild Ev gland hyperplasia. B. Duodenal mass, biopsy: Fragments of duodenal mucosa with focal area of hemorrhage and Ev gland hyperplasia. Negative for malignancy. C. Terminal ileum, stricture, biopsy: Fragments of small intestinal mucosa with mild glandular distortion. See comment. D. Distal ileum, biopsy: Fragments of small intestinal mucosa with acute and chronic inflammation and glandular distortion. See comment. E. Sigmoid, biopsy: Fragments of colonic mucosa, no pathologic diagnosis. SJ:kam 12/10/2021 COMMENT C & D. Cryptitis, crypt abscesses or granulomas are not seen. Correlation with clinical, endoscopic findings and appropriate follow up are necessary. Case has been reviewed in consultation with Dr. La who concurs with the above diagnosis. IDC:AM MICROSCOPIC DESCRIPTION Slides are reviewed. GROSS DESCRIPTION A - Received in fixative is one container labeled with the patient's name and designated biopsy duodenum. The specimen consists of one irregular fragment of light soto soft tissue that measures 0.4 x 0.3 x 0.1 cm. The specimen is totally submitted in one cassette. B - Received in fixative is one container labeled with the patient's name and designated duodenal mass. The specimen consists of multiple irregular fragments of light soto soft tissue that in aggregate measure 1.5 x 0.3 x 0.1 cm. The specimen is totally submitted in one cassette. C - Received in fixative is one container labeled with the patient's name and designated biopsy terminal ileum stricture. The specimen consists of multiple irregular fragments of light soto soft tissue that in aggregate measure 0.6 x 0.6 x 0.1 cm. The specimen is totally submitted in one cassette. D - Received in fixative is one container labeled with the patient's name and designated biopsy distal ileum. The specimen consists of multiple irregular fragments of light soto soft tissue that in aggregate measure 0.5 x 0.5 x 0.1 cm. The specimen is totally submitted in one cassette. E - Received in fixative is one container labeled with the patient's name and designated biopsy sigmoid. The specimen consists of two irregular fragments of light soto soft tissue that in aggregate measure 0.8 x 0.4 x 0.1 cm. The specimen is totally submitted in one cassette. / SJ:rg 12/09/2021 TC:5 CPT: 05692 x5
--- NOTE | 2021-12-09 08:12 | OP.EGD_ITS ---
Patient Name: Yaniv Palomo Procedure Date: 12/09/2021 7:12 AM Date of : 1985 Age: 36 Procedure: Upper GI endoscopy Indications: Generalized abdominal pain, Failure to respond to medical treatment Providers: Benedict Canales DO Referring MD: Paul Pope Medicines: See the Anesthesia note for documentation of the administered medications Patient Profile: This is a 36 year old male. Refer to note in patient chart for documentation of history and physical. Patient has symptoms of chronic abdominal cramping. He is status post colonoscopy for biopsy and EGD for biopsy. Complications: No immediate complications. Procedure: Pre-Anesthesia Assessment: - Prior to the procedure, a History and Physical was performed, and patient medications and allergies were reviewed. The patient is competent. The risks and benefits of the procedure and the sedation options and risks were discussed with the patient. All questions were answered and informed consent was obtained. Patient identification and proposed procedure were verified by the physician in the pre-procedure area. Mental Status Examination: alert and oriented. Airway Examination: normal oropharyngeal airway and neck mobility. Respiratory Examination: clear to auscultation. CV Examination: normal. Prophylactic Antibiotics: The patient does not require prophylactic antibiotics. Prior Anticoagulants: The patient has taken no previous anticoagulant or antiplatelet agents. After reviewing the risks and benefits, the patient was deemed in satisfactory condition to undergo the procedure. The anesthesia plan was to use moderate sedation / analgesia (conscious sedation). Immediately prior to administration of medications, the patient was re-assessed for adequacy to receive sedatives. The heart rate, respiratory rate, oxygen saturations, blood pressure, adequacy of pulmonary ventilation, and response to care were monitored throughout the procedure. The physical status of the patient was re-assessed after the procedure. After obtaining informed consent, the endoscope was passed under direct vision. Throughout the procedure, the patient's blood pressure, pulse, and oxygen saturations were monitored continuously. The pediatric colonoscope was introduced through the mouth, and advanced to the second part of duodenum. The upper GI endoscopy was accomplished without difficulty. The patient tolerated the procedure well. Moderate Sedation: Moderate (conscious) sedation was administered by the endoscopy nurse and supervised by the endoscopist. The patient's oxygen saturation, heart rate, blood pressure and response to care were monitored. Total physician intraservice time was 15 minutes. Scope In: Scope Out: 7:39:35 AM Findings: The examined esophagus was normal. The entire examined stomach was normal. One non-bleeding cratered duodenal ulcer with no stigmata of bleeding was found in the first portion of the duodenum. The lesion was 3 mm in largest dimension. Biopsies were taken with a cold forceps for histology. Verification of patient identification for the specimen was done. Estimated blood loss was minimal. A medium-sized polypoid mass with no bleeding was found in the duodenal bulb. Biopsies were taken with a cold forceps for histology. Verification of patient identification for the specimen was done. Estimated blood loss was minimal. Impression: - Normal esophagus. - Normal stomach. - One non-bleeding duodenal ulcer with no stigmata of bleeding. Biopsied. - Benign duodenal mass. Biopsied. Recommendation: - Discharge patient to home. - Resume previous diet. - Continue present medications. - Await pathology results. Procedure Code(s): --- Professional --- 70499, Esophagogastroduodenoscopy, flexible, transoral; with biopsy, single or multiple 43837, 59, Moderate sedation services provided by the same physician or other qualified health attending ambulatory care performing the diagnostic or therapeutic service that the sedation supports, requiring the presence of an independent trained observer to assist in the monitoring of the patient's level of consciousness and physiological status; initial 15 minutes of intraservice time, patient age 5 years or older CPT copyright 2017 [employer]. All rights reserved. The codes documented in this report are preliminary and upon warranty clerk review may be revised to meet current compliance requirements. Benedict Canales DO 12/09/2021 8:11:33 AM This report has been signed electronically. Number of Addenda: 1 Note Initiated On: 12/09/2021 7:12 AM Addendum Number: 1 Addendum Date: 06/02/2022 6:45:58 AM MAC was used as sedation for this procedure. Benedict Canales DO 06/02/2022 6:46:02 AM This report has been signed electronically.
--- NOTE | 2021-12-09 08:13 | OP.CCLET_ITS ---
06/02/2022 Paul Pope [address] [place] [address] Re : Upper GI endoscopy procedure for Yaniv Palomo Dear Dr. Pope This procedure was performed on December. My impressions and recommendations are as follows: Impressions : - Normal esophagus. - Normal stomach. - One non-bleeding duodenal ulcer with no stigmata of bleeding. Biopsied. - Benign duodenal mass. Biopsied. Recommendations : - Discharge patient to home. - Resume previous diet. - Continue present medications. - Await pathology results. My findings are described in the full procedure note, which is enclosed. If I can be of further assistance, please feel free to contact me at . Sincerely, Benedict Canales, 12/09/2021 8:11:33 AM This report has been signed electronically.
[2021-12-09 08:16] VITALS: BP 113/80; BP 149/86; PULSE 52; RESP 16; TEMP 36.1; O2SAT 98
[2021-12-09 08:21] VITALS: BP 149/86; BP 98/60; PULSE 49; RESP 16; O2SAT 100
--- NOTE | 2021-12-09 08:21 | OP.COLON_ITS ---
Patient Name: Yaniv Palomo Procedure Date: 12/09/2021 7:40 AM Date of : 1985 Age: 36 Procedure: Colonoscopy Indications: Generalized abdominal pain, Chronic diarrhea, Clinically significant diarrhea of unexplained origin Providers: Benedict Canales DO Referring MD: Paul Pope Medicines: See the Anesthesia note for documentation of the administered medications Patient Profile: This is a 36 year old male. Refer to note in patient chart for documentation of history and physical. Patient has symptoms of chronic abdominal cramping. He is status post colonoscopy for biopsy and EGD for biopsy. He is status post colonoscopy (normal). Last Colonoscopy: within the past 3 years. Complications: No immediate complications. Procedure: Pre-Anesthesia Assessment: - Prior to the procedure, a History and Physical was performed, and patient medications and allergies were reviewed. The patient is competent. The risks and benefits of the procedure and the sedation options and risks were discussed with the patient. All questions were answered and informed consent was obtained. Patient identification and proposed procedure were verified by the physician in the pre-procedure area. Mental Status Examination: alert and oriented. Airway Examination: normal oropharyngeal airway and neck mobility. Respiratory Examination: clear to auscultation. CV Examination: normal. Prophylactic Antibiotics: The patient does not require prophylactic antibiotics. Prior Anticoagulants: The patient has taken no previous anticoagulant or antiplatelet agents. After reviewing the risks and benefits, the patient was deemed in satisfactory condition to undergo the procedure. The anesthesia plan was to use moderate sedation / analgesia (conscious sedation). Immediately prior to administration of medications, the patient was re-assessed for adequacy to receive sedatives. The heart rate, respiratory rate, oxygen saturations, blood pressure, adequacy of pulmonary ventilation, and response to care were monitored throughout the procedure. The physical status of the patient was re-assessed after the procedure. After I obtained informed consent, the scope was passed under direct vision. Throughout the procedure, the patient's blood pressure, pulse, and oxygen saturations were monitored continuously. The pediatric colonoscope was introduced through the anus and advanced to the terminal ileum. The colonoscopy was performed without difficulty. The patient tolerated the procedure well. The quality of the bowel preparation was adequate. Moderate Sedation: Moderate (conscious) sedation was administered by the endoscopy nurse and supervised by the endoscopist. The patient's oxygen saturation, heart rate, blood pressure and response to care were monitored. Total physician intraservice time was 15 minutes. Scope In: 7:43:35 AM Scope Withdrawal Time 0 hours 20 minutes 9 seconds Scope Out: 8:06:58 AM Total Procedure Duration Time 0 hours 23 minutes 23 seconds Findings: The perianal and digital rectal examinations were normal. Localized mild inflammation characterized by erosions and erythema was found in the sigmoid colon. Biopsies were taken with a cold forceps for histology. Verification of patient identification for the specimen was done. Estimated blood loss was minimal. The terminal ileum contained a benign-appearing, intrinsic severe stenosis measuring 4 cm (in length) that was traversed after dilation. Biopsies were taken with a cold forceps for histology. Verification of patient identification for the specimen was done. Estimated blood loss was minimal. A TTS dilator was passed through the scope. Dilation with a 15 mm colonic balloon dilator was performed. The dilation site was examined following endoscope reinsertion and showed complete resolution of luminal narrowing. Estimated blood loss was minimal. The terminal ileum contained multiple five mm ulcers. No bleeding was present. No stigmata of recent bleeding were seen. Biopsies were taken with a cold forceps for histology. Verification of patient identification for the specimen was done. Estimated blood loss was minimal. Impression: - Localized mild inflammation was found in the sigmoid colon secondary to colitis. Biopsied. - Stricture in the terminal ileum. Biopsied. Dilated. - Multiple ulcers in the terminal ileum. Biopsied. Recommendation: - Discharge patient to home. - Resume previous diet. - Continue present medications. - Await pathology results. - Repeat colonoscopy in 1 year for surveillance based on pathology results. Procedure Code(s): --- Professional --- 64407, Colonoscopy, flexible; with transendoscopic balloon dilation 17748, Colonoscopy, flexible; with biopsy, single or multiple 82541, 59, Moderate sedation services provided by the same physician or other qualified health medicare insurance specialist performing the diagnostic or therapeutic service that the sedation supports, requiring the presence of an independent trained observer to assist in the monitoring of the patient's level of consciousness and physiological status; initial 15 minutes of intraservice time, patient age 5 years or older CPT copyright 2017 [employer]. All rights reserved. The codes documented in this report are preliminary and upon impregnator and drier helper review may be revised to meet current compliance requirements. Benedict Canales DO 12/09/2021 8:21:09 AM This report has been signed electronically. Number of Addenda: 1 Note Initiated On: 12/09/2021 7:40 AM Addendum Number: 1 Addendum Date: 06/02/2022 6:46:10 AM MAC was used as sedation for this procedure. Benedict Canales DO 06/02/2022 6:46:16 AM This report has been signed electronically.
--- NOTE | 2021-12-09 08:22 | OP.CCLET_ITS ---
06/02/2022 Paul Pope [address] [place] [address] Re : Colonoscopy procedure for Yaniv Palomo Dear Dr. Pope This procedure was performed on December. My impressions and recommendations are as follows: Impressions : - Localized mild inflammation was found in the sigmoid colon secondary to colitis. Biopsied. - Stricture in the terminal ileum. Biopsied. Dilated. - Multiple ulcers in the terminal ileum. Biopsied. Recommendations : - Discharge patient to home. - Resume previous diet. - Continue present medications. - Await pathology results. - Repeat colonoscopy in 1 year for surveillance based on pathology results. My findings are described in the full procedure note, which is enclosed. If I can be of further assistance, please feel free to contact me at . Sincerely, Benedict Canales, 12/09/2021 8:21:09 AM This report has been signed electronically.
[2021-12-09 08:26] VITALS: BP 109/42; BP 149/86; PULSE 43; RESP 16; O2SAT 98
[2021-12-09 08:31] VITALS: BP 102/66; BP 149/86; PULSE 56; RESP 16; TEMP 36.6; O2SAT 98
[2021-12-09 08:53] VITALS: BP 149/86
== END 2021-12-09 23:59 | disposition home or self-care (01) ==
LOC: EN 06:12 → AC 06:13
PROVIDERS: PCP Family Medicine; Referring Provider Family Medicine; Visit Provider Internal Medicine Gastroenterology
PROC: 0DJD8ZZ Inspection of Lower Intestinal Tract, Via Natural or Artificial Opening Endoscopic (ICD-10-PCS; CPT 45378; principal; 2021-12-09 07:10)
DX: K56.699 Other intestinal obstruction unspecified as to partial versus complete obstruction (principal); K31.89 Other diseases of stomach and duodenum; K26.9 Duodenal ulcer, unspecified as acute or chronic, without hemorrhage or perforation; I10 Essential (primary) hypertension; Z79.899 Other long term (current) drug therapy
CPT/HCPCS: 45380; 45386; 43239; 87426; 88305; C9803; J7120; J2405

== ENCOUNTER → 2022-04-11 | Outpatient (CLI) | payer OTHER, SELFPAY ==
[2022-04-11 17:00] LABS: Absolute Lymphocyte Count 2.09 X10^3/uL (0.83-4.51); Absolute Neutrophil Count 5.5 X10^3/uL (2.0-7.7); Basophil% 1.2 % (0-1); Eosinophil# 0.15 X10^3/uL; Eosinophils% 1.8 % (0-5); Hematocrit 45.7 % (40-54); Hemoglobin 15.2 g/dL (13.0-16.5); Lymphocyte # 2.09 X10^3/ul (0.83-4.51); Lymphocyte % 25.1 % (19-41); Mean Corp Hgb Conc 33.3 g/dL (32-36); Mean Corpuscular Hgb 29.6 pg (27.0-32.0); Mean Corpuscular Volume 89.1 fL (80-94); Mean Platelet Vol. 9.6 fl (6.2-12.0); Monocyte# 0.49 X10^3/uL; Monocyte% 5.9 % (0-10); NRBC Flagged by Analyzer 0 % (0-5); Neutrophil # 5.49 X10^3/uL (2.7-7.7); Neutrophil % 65.8 % (47-70); Platelet Count 354 K/mm3 (150-450); RBC Distribution Width CV 12.4 % (11.6-14.6); RBC Distribution Width SD 40.4 fl (35.1-43.9); Red Blood Count 5.13 M/mm3 (4.6-6.2); White Blood Count 8.3 K/mm3 (4.4-11.0)
[2022-04-11 17:28] LABS: Erythrocyte Sedimentation Rate 20 mm/hr (0-20)
[2022-04-11 17:37] LABS: ALB/GLOB Ratio 1.1 RATIO (0.9-2.4); AST(SGOT) 24 U/L (15-37); Alanine Aminotransfer ALT/SGPT 34 U/L (16-61); Albumin, Serum 4.2 g/dL (3.2-5.0); Alkaline Phosphatase 76 U/L (45-117); Anion Gap 6 (5-15); BUN 12 mg/dL (7-18); BUN/Creat Ratio 9.8 RATIO (10-20); CRP < 2.90 mg/L (0.0-3.0); Calcium,Total 9.7 mg/dL (8.5-10.1); Chloride 105 mmol/L (98-107); Creatinine, Serum 1.23 mg/dL (0.70-1.30); EST Glomerular Filtration Rate 70 mL/min (>60); Est Glom Filt Rate - Afr Amer 85 mL/min (>60); Globulin 3.7 g/dL (2.2-4.2); Glucose 156 mg/dL (74-106); Potassium 3.8 mmol/L (3.5-5.1); Protein, Total 7.9 g/dL (6.4-8.2); Sodium Level 137 mmol/L (136-145)
[2022-04-11 18:08] LABS: Vitamin B12 737 pg/mL (211-911)
[2022-04-15 17:18] LABS: Vitamin D 1,25-Dihydroxy 59.5 pg/mL (24.8-81.5)
== END | disposition home or self-care (01) ==
LOC: LAB 16:11
PROVIDERS: PCP Family Medicine; Visit Provider Nurse Practitioner Adult Health
DX: K50.90 Crohn's disease, unspecified, without complications (principal)
CPT/HCPCS: 36415; 80053; 82607; 82652; 85025; 85652; 86140

== ENCOUNTER → 2022-04-26 | Outpatient (CLI) | payer OTHER, SELFPAY ==
[2022-04-30 07:32] LABS: Calprotectin, Stool 311 ug/g (0-120)
== END | disposition home or self-care (01) ==
PROVIDERS: PCP Family Medicine; Visit Provider Nurse Practitioner Adult Health
DX: K50.90 Crohn's disease, unspecified, without complications (principal)
CPT/HCPCS: 83630; 83993

== ENCOUNTER → 2022-05-25 | Outpatient (CLI) | payer OTHER, SELFPAY ==
[2022-05-25 11:14] LABS: Amylase 53 U/L (25-115); Lipase 148 U/L (73-393)
== END | disposition home or self-care (01) ==
PROVIDERS: PCP Family Medicine; Referring Provider Nurse Practitioner Adult Health; Visit Provider Nurse Practitioner Adult Health
DX: R10.11 Right upper quadrant pain (principal); K50.90 Crohn's disease, unspecified, without complications
CPT/HCPCS: 36415; 82150; 83690

== ENCOUNTER → 2022-06-03 | Outpatient (CLI) | payer OTHER, SELFPAY ==
[2022-06-07 13:40] LABS: Pancreatic Elastase, Fecal 444 (>200)
[2022-06-09 13:27] LABS: Fats, Neutral Normal (.); Fats, Total Normal (.)
== END | disposition home or self-care (01) ==
LOC: LABSPEC 09:02
PROVIDERS: PCP Family Medicine; Referring Provider Nurse Practitioner Adult Health; Visit Provider Nurse Practitioner Adult Health
DX: R10.11 Right upper quadrant pain (principal); R19.7 Diarrhea, unspecified
CPT/HCPCS: 82653; 82705

== ENCOUNTER → 2022-08-23 | Outpatient (CLI) | payer OTHER, SELFPAY ==
--- NOTE | 2022-08-23 07:10 | MRI_ITS ---
EXAM: MR ABDOMEN WITHOUT INTRAVENOUS CONTRAST, MRCP PROTOCOL CLINICAL INDICATION: ruq pain, abnl HIDA TECHNIQUE: Multiplanar and multisequence MR images of the abdomen without intravenous contrast obtained with MRCP sequence. Three-dimensional post-processing reconstructions were performed. This report was created using airp[employer] report [employer] technology. COMPARISON: None. FINDINGS: LOWER THORAX: Normal. No pleural effusion. LIVER: Liver is enlarged measuring 21.6 cm in cephalocaudad dimension. GALLBLADDER AND BILE DUCTS: Right and left bile ducts join at the level of the cystic duct insertion which is anatomical variant. No dilatation of the biliary tree. Common bile duct measures 4 mm in maximum diameter. No evidence of bile duct stone. No gallbladder distention or wall edema. PANCREAS: Normal. No focal cystic mass. No pancreatic duct dilation. SPLEEN: Spleen is enlarged measuring 15.5 cm in maximum cephalocaudad dimension. ADRENALS: Normal. No nodules. KIDNEYS AND URETERS: Normal. Normal renal size and position. No hydronephrosis. STOMACH AND BOWEL: No evidence of duodenal mass. INTRAPERITONEAL SPACE: Normal. No ascites or other fluid collection. VASCULATURE: Normal. Abdominal aorta is non-dilated. LYMPH NODES: No enlarged lymph nodes. MRI/MRCP Abdomen without Contrast IMPRESSION: 1. No evidence of bile duct dilatation or common bile duct stone. 2. Hepatosplenomegaly. Electronically Signed: Jeremias Jules MD at 9:33 EST ,
== END | disposition home or self-care (01) ==
LOC: MRI 07:10
PROVIDERS: PCP Family Medicine; Referring Provider Nurse Practitioner Adult Health; Visit Provider Nurse Practitioner Adult Health
DX: R10.11 Right upper quadrant pain (principal); R94.8 Abnormal results of function studies of other organs and systems
CPT/HCPCS: 74181

== ENCOUNTER → 2022-10-18 | Outpatient (CLI) | payer OTHER, SELFPAY ==
[2022-10-18 11:55] LABS: Bacteria 0 SEEN /hpf (None Seen); Mucous, Urine 0 SEEN /hpf (<or=2+); Red Blood Cells-Urine 0 SEEN /hpf (0-5); Squamous Epithelial Cells - UA 0 SEEN /hpf (0-5); White Blood Cells 0 SEEN /hpf (0-5)
[2022-10-18 15:40] LABS: Absolute Lymphocyte Count 1.96 X10^3/uL (0.83-4.51); Absolute Neutrophil Count 5.2 X10^3/uL (2.0-7.7); Basophil# 0.07 X10^3/uL; Basophil% 0.9 % (0-1); Eosinophil# 0.12 X10^3/uL; Eosinophils% 1.5 % (0-5); Hematocrit 46.7 % (40-54); Hemoglobin 15.2 g/dL (13.0-16.5); Lymphocyte # 1.96 X10^3/ul (0.83-4.51); Lymphocyte % 24.5 % (19-41); Mean Corp Hgb Conc 32.5 g/dL (32-36); Mean Corpuscular Hgb 29.2 pg (27.0-32.0); Mean Corpuscular Volume 89.6 fL (80-94); Mean Platelet Vol. 10.2 fl (6.2-12.0); Monocyte# 0.65 X10^3/uL; Monocyte% 8.1 % (0-10); NRBC Flagged by Analyzer 0 % (0-5); Neutrophil # 5.19 X10^3/uL (2.7-7.7); Neutrophil % 64.8 % (47-70); Platelet Count 403 K/mm3 (150-450); RBC Distribution Width CV 11.9 % (11.6-14.6); RBC Distribution Width SD 39.1 fl (35.1-43.9); Red Blood Count 5.21 M/mm3 (4.6-6.2)
[2022-10-18 15:50] LABS: Color, Urine Yellow (Yellow); Glucose, Dipstick Normal (Normal); Ketone-Dipstick Negative (Negative); Leukocyte Esterase-Dipstick Negative /ul (Negative); Nitrite-Dipstick Negative (Negative); Occult Blood-Urine Negative /ul (Negative); Protein-Dipstick Negative (Negative); Specific Gravity, Urine 1.005 (1.002-1.030); Urine Bilirubin Dipstick Negative (Negative); Urine Clarity Clear (Clear); Urine Urobilinogen Normal (Normal)
[2022-10-18 15:59] LABS: ALB/GLOB Ratio 1.4 RATIO (0.9-2.4); AST(SGOT) 16 U/L (15-37); Alanine Aminotransfer ALT/SGPT 28 U/L (16-61); Albumin, Serum 4.6 g/dL (3.2-5.0); Alkaline Phosphatase 75 U/L (45-117); Anion Gap 11 (5-15); BUN 15 mg/dL (7-18); BUN/Creat Ratio 15.7 RATIO (10-20); Calcium,Total 9.7 mg/dL (8.5-10.1); Chloride 103 mmol/L (98-107); Cholesterol 170 mg/dL (200); Creatinine, Serum 0.96 mg/dL (0.70-1.30); EST Glomerular Filtration Rate 94 mL/min (>60); Est Glom Filt Rate - Afr Amer 114 mL/min (>60); Globulin 3.4 g/dL (2.2-4.2); Glucose 92 mg/dL (74-106); High Density Lipoprotein 34 mg/dL; Potassium 4.4 mmol/L (3.5-5.1); Sodium Level 139 mmol/L (136-145); Triglycerides 189 mg/dL; Very Low Density Lipoprotein 38 mg/dL (5-40)
== END | disposition home or self-care (01) ==
LOC: MFPLAB 11:53
PROVIDERS: PCP Family Medicine; Referring Provider Family Medicine; Visit Provider Family Medicine
DX: Z00.00 Encounter for general adult medical examination without abnormal findings (principal); E66.01 Morbid (severe) obesity due to excess calories; N20.0 Calculus of kidney
CPT/HCPCS: 36415; 80053; 80061; 81001; 85025

== ENCOUNTER → 2022-10-25 | Outpatient (CLI) | payer OTHER, SELFPAY ==
--- NOTE | 2022-10-25 14:14 | CT_ITS ---
INDICATION: Comorbid Chron'' s, Left Abd. flank pain, Kidney stone EXAMINATION: CT ABDOMEN AND PELVIS WITHOUT CONTRAST - CT Abdomen And Pelvis W/O Contrast Injection TECHNIQUE: Helically acquired images were obtained of the abdomen and pelvis without oral or IV contrast. A radiation dose optimization technique was used for this scan. IV Contrast dosage and agent: None. Oral contrast: None. COMPARISON: 09/24/2021 FINDINGS: LOWER CHEST: Lung bases are clear. No cardiomegaly or pericardial effusion. LIVER: Homogeneous. No focal mass. GALLBLADDER AND BILIARY TREE: No calcified gallstones. No gallbladder distension or wall edema. No intra- or extrahepatic biliary ductal dilation. PANCREAS: No focal cystic or solid mass. SPLEEN: Normal size without focal cystic or solid mass. ADRENAL GLANDS: No nodules. KIDNEYS AND URETERS: Mild left hydroureteronephrosis. 7 mm calculus in the distal left ureter proximal to the UVJ. PERITONEUM: No ascites or free air. BOWEL: Normal appendix. Circumferential wall thickening of the terminal ileum with involvement of the adjacent cecum. LYMPH NODES: No enlarged mesenteric or retroperitoneal lymph nodes. VESSELS: Aorta is non-dilated. URINARY BLADDER: Stable small fat nodule along the right lateral bladder wall. REPRODUCTIVE ORGANS: No pelvic masses. BONES: No acute or aggressive abnormality. CT/Abdomen/Pelvis without Cont IMPRESSION: Findings consistent with regional enteritis involving the terminal ileum in the adjacent cecum. Partially obstructing 7 mm distal left ureteral calculus. Electronically Signed: Morales Gill MD at 0:24 EST ,
== END | disposition home or self-care (01) ==
PROVIDERS: PCP Family Medicine; Referring Provider Family Medicine; Visit Provider Family Medicine
DX: K50.90 Crohn's disease, unspecified, without complications (principal); R10.9 Unspecified abdominal pain
CPT/HCPCS: 74176

== ENCOUNTER → 2022-12-27 | Outpatient (CLI) | payer OTHER, SELFPAY ==
[2022-12-27 10:42] LABS: Erythrocyte Sedimentation Rate 19 mm/hr (0-20)
[2022-12-27 10:46] LABS: Absolute Lymphocyte Count 1.58 X10^3/uL (0.83-4.51); Absolute Neutrophil Count 5.8 X10^3/uL (2.0-7.7); Basophil# 0.05 X10^3/uL; Basophil% 0.6 % (0-1); Eosinophil# 0.08 X10^3/uL; Hematocrit 46.5 % (40-54); Hemoglobin 15.5 g/dL (13.0-16.5); Lymphocyte # 1.58 X10^3/ul (0.83-4.51); Lymphocyte % 20.1 % (19-41); Mean Corp Hgb Conc 33.3 g/dL (32-36); Mean Corpuscular Hgb 29.6 pg (27.0-32.0); Mean Corpuscular Volume 88.7 fL (80-94); Mean Platelet Vol. 9.8 fl (6.2-12.0); Monocyte# 0.36 X10^3/uL; Monocyte% 4.6 % (0-10); NRBC Flagged by Analyzer 0 % (0-5); Neutrophil # 5.77 X10^3/uL (2.7-7.7); Neutrophil % 73.6 % (47-70); Platelet Count 360 K/mm3 (150-450); RBC Distribution Width CV 12.2 % (11.6-14.6); RBC Distribution Width SD 39.7 fl (35.1-43.9); Red Blood Count 5.24 M/mm3 (4.6-6.2); White Blood Count 7.9 K/mm3 (4.4-11.0)
[2022-12-27 10:58] LABS: ALB/GLOB Ratio 1.1 RATIO (0.9-2.4); AST(SGOT) 16 U/L (15-37); Alanine Aminotransfer ALT/SGPT 30 U/L (16-61); Alkaline Phosphatase 83 U/L (45-117); Anion Gap 7 (5-15); BUN 13 mg/dL (7-18); BUN/Creat Ratio 12.9 RATIO (10-20); CRP < 2.90 mg/L (0.0-3.0); Calcium,Total 9.4 mg/dL (8.5-10.1); Chloride 105 mmol/L (98-107); Creatinine, Serum 1.01 mg/dL (0.70-1.30); EST Glomerular Filtration Rate 88 mL/min (>60); Est Glom Filt Rate - Afr Amer 106 mL/min (>60); Globulin 3.7 g/dL (2.2-4.2); Glucose 157 mg/dL (74-106); Potassium 3.7 mmol/L (3.5-5.1); Protein, Total 7.7 g/dL (6.4-8.2); Sodium Level 138 mmol/L (136-145)
[2022-12-29 19:07] LABS: QNTFERON TB Mitogen Value > 10.00 IU/mL (.); QNTFERON TB Nil Value 0 IU/mL (.); QNTFERON TB1+ Ag Value 0 IU/mL (.); QNTFERON TB2+ Ag Value 0 IU/mL (.); QNTIFERON TB Positive Criteria Negative (Negative)
== END | disposition home or self-care (01) ==
PROVIDERS: Internal Medicine Gastroenterology; PCP Family Medicine; Referring Provider Nurse Practitioner Adult Health; Visit Provider Nurse Practitioner Adult Health
DX: K50.90 Crohn's disease, unspecified, without complications (principal)
CPT/HCPCS: 36415; 80053; 85025; 85652; 86140; 86480

== ENCOUNTER → 2023-01-06 | Outpatient (CLI) | payer OTHER, SELFPAY ==
[2023-01-13 16:09] LABS: Calprotectin, Stool 87 ug/g (0-120)
== END | disposition home or self-care (01) ==
LOC: LAB 07:38 → LABSPEC 07:47
PROVIDERS: PCP Family Medicine; Referring Provider Nurse Practitioner Adult Health; Visit Provider Nurse Practitioner Adult Health
DX: K50.90 Crohn's disease, unspecified, without complications (principal)
CPT/HCPCS: 83630; 83993

== ENCOUNTER → 2023-08-31 | Outpatient (CLI) | payer OTHER, SELFPAY ==
--- OUTSIDE RECORDS SUMMARY | 2023-08-31 11:39 | XMS RPT_ITS | CCD ---
Author Name Unknown Address [address] [place] [address] Organization [facility] Progress note 08-25-2021 Note Date & Type Note Facility 08-25-2021 Note HNO ID: [id number] Author: Devora Archer Population Health Navigator Service: ? Author Type: ? Type: Progress Notes Filed: 08/25/2021 12:12 PM Note Text: POPULATION HEALTH NAVIGATION OUTREACH Action/FYI I spoke with patient and he doesn't was to scheduled with a new pcp Updated pcp field No care everywhere Contact made with patient or family member? YES Pt identified by name and : YES Outreach Outcome/Action Spoke to patient or caregiver: PCP confirmed / updated Patient declined Reason for Outreach Attribution: Provider Off-boarding Payer: Payor: [employer] / Plan: [employer] CHOICE POS II / Product Type: POS / Care Gap Reviewed:: Reminder: Reminder note to check Health Maintenance for items below Health Maintenance items due: COVID-19 VACCINE(1) Never done HEPATITIS C SCREENING Never done HIV SCREENING Never done BP CONTROLLED (<130/80) Never done DEPRESSION SCREENING due on 10/03/2018 INFLUENZA(1) due on 05/05/2021 ANNUAL PCP TEAM CHRONIC DISEASE VISIT due on 06/15/2021 Advanced Directives Completed: Have you ever planned for future healthcare decisions with a power of energy attorney, living will, or advance directives? Referrals: Message Sent to Practice: Navigation Signature: Deovra Archer Population Health Navigator August 25, 2021 12:11 PM [facility] Clinical Note 08-25-2021 Note Date & Type Note Facility 08-25-2021 Note Patient Outreach (NE TNAV) KALEIGH BLACK ([id number]) 1985 M Date Time Provider Department 08/25/21 DEVORA ARCHER During your visit today, we recorded the following information about you: Devorazack Archer Population Health Navigator 08/25/2021 12:12 PM Signed POPULATION HEALTH NAVIGATION OUTREACH Action/FYI I spoke with patient and he doesn't was to scheduled with a new pcp Updated pcp field No care everywhere Contact made with patient or family member? YES Pt identified by name and : YES Outreach Outcome/Action Spoke to patient or caregiver: PCP confirmed / updated Patient declined Reason for Outreach Attribution: Provider Off-boarding Payer: Payor: [employer]ET[employer] / Plan: [employer]ET[employer] CHOICE POS II / Product Type: POS / Care Gap Reviewed:: Reminder: Reminder note to check Health Maintenance for items below Health Maintenance items due: COVID-19 VACCINE(1) Never done HEPATITIS C SCREENING Never done HIV SCREENING Never done BP CONTROLLED (<130/80) Never done DEPRESSION SCREENING due on 10/03/2018 INFLUENZA(1) due on 05/05/2021 ANNUAL PCP TEAM CHRONIC DISEASE VISIT due on 06/15/2021 Advanced Directives Completed: Have you ever planned for future healthcare decisions with a power of energy attorney, living will, or advance directives? Referrals: Message Sent to Practice: Navigation Signature: Devora Archer Population Health Navigator August 25, 2021 12:11 PM Allergies As of Date: 08/25/2021 (No Known Allergies) Date Reviewed: 06/15/2020 Reviewed by: Honey ([facility]) AUTUMN Felix - Fully Assessed Reason for Visit: Population Health Navigation Outreach [3910] Cmt: Offboarding Prescriptions as of 08/25/2021 - naproxen (NAPROSYN) 500 mg tablet Take 1 tablet by mouth twice daily as needed. Take with food. - allopurinol (ZYLOPRIM) 300 mg tablet Take 1 tablet by mouth once daily. - amLODIPine (NORVASC) 10 mg tablet Take 1 tablet by mouth once daily. - omeprazole (PRILOSEC) 40 mg capsule Take 1 capsule by mouth once daily. 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 This clinical summary was aggregated from multiple sources. Caution should be exercised in using it in the provision of clinical care. This summary normalizes information from multiple sources, and as a consequence, information in this document may materially change the coding, format and clinical context of patient data. In addition, data may be omitted in some cases. CLINICAL DECISIONS SHOULD BE BASED ON THE PRIMARY CLINICAL RECORDS. [employer] provides no warranty or guarantee of the accuracy or completeness of information in this document.
[2023-08-31 12:13] LABS: Absolute Lymphocyte Count 1.79 X10^3/uL (0.83-4.51); Absolute Neutrophil Count 5.7 X10^3/uL (2.0-7.7); Basophil# 0.07 X10^3/uL; Basophil% 0.8 % (0-1); Eosinophil# 0.09 X10^3/uL; Eosinophils% 1.1 % (0-5); Hematocrit 49.4 % (40-54); Hemoglobin 16.2 g/dL (13.0-16.5); Lymphocyte # 1.79 X10^3/ul (0.83-4.51); Lymphocyte % 21.4 % (19-41); Mean Corp Hgb Conc 32.8 g/dL (32-36); Mean Corpuscular Hgb 28.8 pg (27.0-32.0); Mean Corpuscular Volume 87.7 fL (80-94); Mean Platelet Vol. 9.7 fl (6.2-12.0); Monocyte# 0.66 X10^3/uL; Monocyte% 7.9 % (0-10); NRBC Flagged by Analyzer 0 % (0-5); Neutrophil # 5.72 X10^3/uL (2.7-7.7); Neutrophil % 68.4 % (47-70); Platelet Count 349 K/mm3 (150-450); RBC Distribution Width CV 12.5 % (11.6-14.6); Red Blood Count 5.63 M/mm3 (4.6-6.2); White Blood Count 8.4 K/mm3 (4.4-11.0)
[2023-08-31 12:25] LABS: Erythrocyte Sedimentation Rate 14 mm/hr (0-20)
[2023-08-31 12:50] LABS: ALB/GLOB Ratio 1.1 RATIO (0.9-2.4); AST(SGOT) 22 U/L (15-37); Alanine Aminotransfer ALT/SGPT 29 U/L (16-61); Albumin, Serum 4.1 g/dL (3.2-5.0); Alkaline Phosphatase 73 U/L (45-117); Anion Gap 7 (5-15); BUN 10 mg/dL (7-18); BUN/Creat Ratio 11.1 RATIO (10-20); CRP < 2.90 mg/L (0.0-3.0); Calcium,Total 9.3 mg/dL (8.5-10.1); Chloride 104 mmol/L (98-107); EST Glomerular Filtration Rate 100 mL/min (>60); Est Glom Filt Rate - Afr Amer 121 mL/min (>60); Globulin 3.9 g/dL (2.2-4.2); Glucose 101 mg/dL (74-106); Potassium 3.8 mmol/L (3.5-5.1); Sodium Level 138 mmol/L (136-145)
== END | disposition home or self-care (01) ==
PROVIDERS: PCP Family Medicine; Referring Provider Internal Medicine Gastroenterology; Visit Provider Internal Medicine Gastroenterology
DX: K50.90 Crohn's disease, unspecified, without complications (principal)
CPT/HCPCS: 36415; 80053; 85025; 85652; 86140

== ENCOUNTER 2023-10-26 12:30 | Outpatient (RCR) | payer OTHER, SELFPAY ==
--- NOTE | 2023-09-26 13:05 | HP.PTEVAL ---
Patient's Visit Information Visit Information Visit Information: KALEIGH BLACK is a 38 year old M referred to Physical Therapy by Dr. Paul Pope MD with a diagnosis of thoracolumbar DDD/DJD. Date of Evaluation: 09/21/23 Physical Therapist: [place] DPT Visit Plan Frequency: 1-2x /Week Duration: 6 Weeks Plan: Start with thoracic extension stretching seated, add in manual joint mobs as tolerated. Progress to thoracic rotation stretching in quadruped. Once symptoms have improved add in thoracic/lumbar/postural strengthening. Subjective Subjective: Pt. is here today for his initial evaluation with diagnosis of thoracolumbar spine pain. Pt. denies mech of injury. Pt. reports pain has been occurring for a few years. Denies N/T. Pt. does have crohn's disease. Pt. has 3/10 pain at rest. Pt. increased to 6/10 at times, mostly with lifting and twisting. Pt. reports nothing seems to help his pain. No xrays, no MRI. Pt. did have a CT scan of his abdomen which showed from DDD of lumbar/thoracic spine. 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 Overall sleeping well, but does have some trouble with falling asleep. Pt. is hopeful to reduce symptoms in order to get back to all work and recreational activities without issues.. Pain Lower thoracic spine: Pain Intensity (Out of 10): 3 Pain Intensity Range: 2 and 6 Objective Objective: POSTURE: Pt. has a general flexed posture, more so throughout his thoracic spine. PALPATION: Pt. has increased tenderness at T9-T12 more on the R side as well as ribs on correlating side. NEURO: normal throughout. ROM: Pt. has decent lumbar ROM close to full, but does have increased pain in R side of thoracic spine with R side bend, and less so with L side bend. He does get most of his extension from his lower lumbar spine. Thoracic spine: limited rotation, extension Mod loss both and bilaterally. pt. has tightness in B HS as well. MMT: 5/5 throughout BLEs. Pt. has fair- core strength and lumbar extension. GAIT: Pt. has normal gait pattern, but slight limited arm swing with gait. Normal hip motion throughout. Special Tests Thoracic Sitting: Flexion - Mechanical Response: No effect Thoracic Sitting: Flexion - Symptoms During Testing: No effect Thoracic Sitting: Flexion - Symptoms After Testing: No effect Thoracic Sitting: Extension - Mechanical Response: No effect Thoracic Sitting: Extension - Symptoms During Testing: Increases Thoracic Sitting: Extension - Symptoms After Testing: No worse Thoracic Sitting: Right rotation - Mechanical Response: No effect Thoracic Sitting: Right Rotation - Symptoms During Testing: Increases Thoracic Sitting: Right Rotation - Symptoms After Testing: No worse Thoracic Sitting: Left rotation - Mechanical Response: No effect Thoracic Sitting: Left Rotation - Symptoms During Testing: Increases Thoracic Sitting: Left Rotation - Symptoms After Testing: No worse Thoracic Lying: Prone Extension - Mechanical Response: No effect Thoracic Lying: Prone Extension - Symptoms During Testing: Increases Thoracic Lying: Prone Extension - Symptoms After Testing: No worse Thoracic Lying: Supine Extension - Mechanical Response: No effect Thoracic Lying: Supine Extension - Symptoms During Testing: No effect Thoracic Lying: Supine Extention - Symptoms After Testing: No effect L/S Slump test left side: Negative L/S Slump test right side: Negative L/S Left Straight Leg Raise: Negative L/S Right Straight Leg Raise: Negative Lumbar Standing: Flexion - Mechanical Response: No effect Lumbar Standing: Flexion - Symptoms During Testing: No effect Lumbar Standing: Flexion - Symptoms After Testing: No effect Lumbar Standing: Extension - Mechanical Response: No effect Lumbar Standing: Extension - Symptoms During Testing: No effect Lumbar Standing: Extension - Symptoms After Testing: No effect Lumbar Standing: Right Side Glides - Mechanical Response: No effect Lumbar Standing: Right Side [place] - Symptoms During Testing: Increases Lumbar Standing: Right Side [place] - Symptoms After Testing: No worse Lumbar Standing: Left Side [place] - Mechanical Response: No effect Lumbar Standing: Left Side [place] - Symptoms During Testing: Increases Lumbar Standing: Left Side [place] - Symptoms After Testing: No worse Balance/Special Test Scores Oswestry Low Back Score: 12 Goals Goal 1:: LTG: Pt. to be I with HEP. Goal Time Frame: 4-6 Weeks Goal 2:: STG: pt. to sleep throughout the night without increase in symptoms. Goal Time Frame: 2-4 Weeks Goal 3:: LTG: Pt. to have full thoracic and lumbar spine ROM without increase in R sided back pain. Goal Time Frame: 4-6 Weeks Goal 4:: LTG: Pt. to have increased core and thoracic musculature strength increased to 5/5 throughout. Goal Time Frame: 4-6 Weeks Goal 5:: LTG: Pt. to complete all work duties without increase in thoracic spine pain. Goal Time Frame: 4-6 Weeks Rehabilitation Potential Physical Therapy Diagnosis: Pt. has signs and symptoms consistent with thoracolumbar DDD. Pt. has some postural changes including thoracic kyphosis, with some ability to improve. Pt. has some slight loss with thoracic rotation and extension. He would benefit from PT to address the above limitations progressing back to all work and recreational activities without limitations. Rehabilitation Potential: Good Anticipated Interventions Patient/Client Instruction: Educate patient on: Condition, Plan of Care, Risk Factors and Benefits of Fitness Program For the Purpose of:: To improve decision making, To facilitate caregiver knowledge, To improve self management, To prevent re-injury and To improve ability to perform tasks related to life management Therapeutic Exercise to Include: Strength training, Power training, Balance training, Coordination, Body mechanics, Postural training, Flexibilty training, Gait and locomotor training, Neuromotor development, Passive ROM and Active ROM For the Purpose of:: To decrease pain, To increase ROM, To improve nutrient delivery to tissue, To increase oxygenation perfusion, To improve muscle performance and motor function, To improve ability to perform ADL's, To improve gait and locomotor functions, To improve health of tissue, To decrease soft tissue restriction and To increase flexibility/ROM Manual Therapy Techniques to Include: Mobilization, Passive ROM and Soft tissue mobilization For the Purpose of:: To decrease pain, To increase ROM, To improve nutrient delivery to tissue, To increase oxygenation perfusion and To improve muscle performance and motor function Ultrasound (thermal/non thermal): Yes For the Purpose of:: To decrease pain and To increase ROM Text: Thank you for the opportunity to evaluate your patient. For Medicare and Medicare HMO plans, please review the plan of care and approve it. It will need to be FAXED BACK to us at [phone] for Medicare purposes. For Medicare only, by signing this I certify the plan of care. Please let me know if there are questions or concerns regarding this plan of care. Physician Signature: Date:
--- NOTE | 2023-10-30 12:31 | HP.PTDCSUM ---
Discharge Summary D/C summary: It has been my pleasure to treat KALEIGH BLACK referred by Dr. Paul Pope MD, with the diagnosis of thoracolumbar DDD/DJD for a total of 5 visit(s). Discharge Date: 10/26/23 Please see the following information for a summary of their discharge status. Subjective Subjective: Pt reports he feels about the same. Reports he has been completing his HEP regularly. Pain Lower thoracic spine: Pain Intensity (Out of 10): 3 Overall Improvement % Improvement: 10 Objective Objective/Function: Added strengthening exercises today without c/o increased pain. Pt reports PA mobs feel good. Goals Goal 1:: LTG: Pt. to be I with HEP. Goal Progress: Goal Met Goal 2:: STG: pt. to sleep throughout the night without increase in symptoms. Goal Progress: Progressing Goal 3:: LTG: Pt. to have full thoracic and lumbar spine ROM without increase in R sided back pain. Goal Progress: Not Progressing Goal 4:: LTG: Pt. to have increased core and thoracic musculature strength increased to 5/5 throughout. Goal Progress: Progressing Goal 5:: LTG: Pt. to complete all work duties without increase in thoracic spine pain. Goal Progress: Not Progressing Plan Plan: Start with thoracic extension stretching seated, add in manual joint mobs as tolerated. Progress to thoracic rotation stretching in quadruped. Once symptoms have improved add in thoracic/lumbar/postural strengthening. D/C Information Discharge Comments: Pt. reports not much change with PT. Pt. continues to be stiff with his thoracic spine. We have tried ROM, stretching, manual therapy. He has not had much relief with PT. I am DCing him from PT and he is to follow up with physician. d/c sentence: If there are questions or concerns regarding this patient's physical therapy, please feel free to call me at [phone]. Thank you for the referral of this patient. Sincerely, [place] Sip[place], DPT Balance/Gait/Functional tests Balance/Special Test Scores Oswestry Low Back Score: 11 Improvement % Improvement: 10
== END 2023-10-26 19:00 | disposition home or self-care (01) ==
LOC: PT 12:30
PROVIDERS: PCP Family Medicine; Referring Provider Family Medicine; Visit Provider Family Medicine
DX: M51.35 Other intervertebral disc degeneration, thoracolumbar region (principal); G89.29 Other chronic pain
CPT/HCPCS: 97110; 97112; 97140; 97161

== ENCOUNTER → 2024-02-02 | Outpatient (CLI) | payer OTHER, SELFPAY ==
[2024-02-02 12:18] LABS: Microalbumin,Random Urine 5.8 mg/L (NO RANGE EST.)
[2024-02-02 12:19] LABS: Erythrocyte Sedimentation Rate 7 mm/hr (0-20)
[2024-02-02 12:21] LABS: Absolute Lymphocyte Count 2.17 X10^3/uL (0.83-4.51); Absolute Neutrophil Count 5.1 X10^3/uL (2.0-7.7); Basophil% 1.2 % (0-1); Eosinophil# 0.11 X10^3/uL; Eosinophils% 1.3 % (0-5); Hematocrit 48.3 % (40-54); Lymphocyte # 2.17 X10^3/ul (0.83-4.51); Lymphocyte % 26.5 % (19-41); Mean Corp Hgb Conc 33.1 g/dL (32-36); Mean Corpuscular Volume 87.5 fL (80-94); Mean Platelet Vol. 9.7 fl (6.2-12.0); Monocyte# 0.68 X10^3/uL; Monocyte% 8.3 % (0-10); NRBC Flagged by Analyzer 0 % (0-5); Neutrophil # 5.11 X10^3/uL (2.7-7.7); Neutrophil % 62.5 % (47-70); Platelet Count 323 K/mm3 (150-450); RBC Distribution Width CV 12.1 % (11.6-14.6); Red Blood Count 5.52 M/mm3 (4.6-6.2); White Blood Count 8.2 K/mm3 (4.4-11.0)
[2024-02-02 13:21] LABS: CRP < 2.90 mg/L (0.0-3.0)
[2024-02-02 13:28] LABS: ALB/GLOB Ratio 1.1 RATIO (0.9-2.4); AST(SGOT) 26 U/L (15-37); Alanine Aminotransfer ALT/SGPT 37 U/L (16-61); Albumin, Serum 4.1 g/dL (3.2-5.0); Alkaline Phosphatase 75 U/L (45-117); Anion Gap 5 (5-15); BUN 11 mg/dL (7-18); BUN/Creat Ratio 13.4 RATIO (10-20); Calcium,Total 9.4 mg/dL (8.5-10.1); Chloride 107 mmol/L (98-107); Cholesterol 185 mg/dL (200); Creatinine, Serum 0.82 mg/dL (0.70-1.30); EST Glomerular Filtration Rate 111 mL/min (>60); Est Glom Filt Rate - Afr Amer 134 mL/min (>60); Globulin 3.7 g/dL (2.2-4.2); Glucose 92 mg/dL (74-106); High Density Lipoprotein 33 mg/dL; Magnesium 2.3 mg/dL (1.6-2.6); Potassium 3.9 mmol/L (3.5-5.1); Protein, Total 7.8 g/dL (6.4-8.2); Sodium Level 136 mmol/L (136-145); Triglycerides 316 mg/dL; Very Low Density Lipoprotein 63 mg/dL (5-40)
== END | disposition home or self-care (01) ==
LOC: LAB 11:19
PROVIDERS: PCP Family Medicine; Referring Provider Internal Medicine Gastroenterology; Visit Provider Internal Medicine Gastroenterology
DX: K76.0 Fatty (change of) liver, not elsewhere classified (principal); K50.00 Crohn's disease of small intestine without complications; I10 Essential (primary) hypertension
CPT/HCPCS: 36415; 80053; 80061; 82043; 82570; 83735; 85025; 85652; 86140

== ENCOUNTER → 2024-07-23 | Outpatient (CLI) | payer OTHER, SELFPAY ==
[2024-07-23 17:42] LABS: Erythrocyte Sedimentation Rate 21 mm/hr (0-20)
[2024-07-23 18:14] LABS: Absolute Lymphocyte Count 1.98 X10^3/uL (0.83-4.51); Absolute Neutrophil Count 5.8 X10^3/uL (2.0-7.7); Basophil# 0.08 X10^3/uL; Basophil% 0.9 % (0-1); Eosinophil# 0.11 X10^3/uL; Eosinophils% 1.2 % (0-5); Hematocrit 48.9 % (40-54); Hemoglobin 15.8 g/dL (13.0-16.5); Lymphocyte # 1.98 X10^3/ul (0.83-4.51); Lymphocyte % 22.4 % (19-41); Mean Corp Hgb Conc 32.3 g/dL (32-36); Mean Corpuscular Hgb 28.9 pg (27.0-32.0); Mean Corpuscular Volume 89.4 fL (80-94); Mean Platelet Vol. 10.2 fl (6.2-12.0); Monocyte% 9.1 % (0-10); NRBC Flagged by Analyzer 0 % (0-5); Neutrophil # 5.83 X10^3/uL (2.7-7.7); Neutrophil % 66.1 % (47-70); Platelet Count 396 K/mm3 (150-450); RBC Distribution Width CV 12.5 % (11.6-14.6); Red Blood Count 5.47 M/mm3 (4.6-6.2); White Blood Count 8.8 K/mm3 (4.4-11.0)
[2024-07-23 18:25] LABS: ALB/GLOB Ratio 1.1 RATIO (0.9-2.4); AST(SGOT) 14 U/L (15-37); Alanine Aminotransfer ALT/SGPT 29 U/L (16-61); Albumin, Serum 4.4 g/dL (3.2-5.0); Alkaline Phosphatase 81 U/L (45-117); Anion Gap 6 (5-15); BUN 15 mg/dL (7-18); BUN/Creat Ratio 16.9 RATIO (10-20); CRP < 2.90 mg/L (0.0-3.0); Calcium,Total 9.9 mg/dL (8.5-10.1); Chloride 105 mmol/L (98-107); Creatinine, Serum 0.89 mg/dL (0.70-1.30); EST Glomerular Filtration Rate 101 mL/min (>60); Est Glom Filt Rate - Afr Amer 122 mL/min (>60); Globulin 3.9 g/dL (2.2-4.2); Glucose 109 mg/dL (74-106); Magnesium 2.3 mg/dL (1.6-2.6); Potassium 4.2 mmol/L (3.5-5.1); Protein, Total 8.3 g/dL (6.4-8.2); Sodium Level 135 mmol/L (136-145); Uric Acid 5.7 mg/dL (3.5-7.2)
== END | disposition home or self-care (01) ==
LOC: MFPLAB 15:08
PROVIDERS: PCP Family Medicine; Visit Provider Family Medicine
DX: K50.90 Crohn's disease, unspecified, without complications (principal); M10.9 Gout, unspecified
CPT/HCPCS: 36415; 80053; 83735; 84550; 85025; 85652; 86140

== ENCOUNTER → 2024-08-19 | Outpatient (CLI) | payer OTHER, SELFPAY ==
--- NOTE | 2024-08-19 07:15 | US_ITS ---
STUDY: ABDOMINAL ULTRASOUND - RIGHT UPPER QUADRANT; ELASTOGRAPHY REASON FOR VISIT: Male, 39 years old. Fatty infiltration of the liver. TECHNIQUE: Ultrasound evaluation of the right upper quadrant was performed with real-time and static alfaro-scale imaging. Point quantification shear wave elastography was performed (Droid system master). TECHNICAL QUALITY: Limited. Examination limited due to obesity. COMPARISON: Comparison is made with prior study June 17, 2021. FINDINGS: Liver: The liver is enlarged and measures 19.6 cm. There is increased echogenicity consistent with fatty infiltration. The bile ducts are within normal limits. There is hepatic color flow. The direction of portal flow is hepatopetal. There is no demonstrated mass lesion. Median liver stiffness measured 7.3 kPa. Gallbladder: Normal distended gallbladder. The gallbladder wall measures 3 mm. There is a negative sonographic Plata''s sign. There is no pericholecystic fluid. There are no gallstones. Common Bile Duct (C.B.D.): The common bile duct not visualized. Pancreas: There is normal echogenicity of the visualized pancreas. There is no demonstrated pancreatic mass or cyst. Right Kidney: Normal size of the right kidney. The right kidney measures 12.7 cm x 5.4 cm x 4.9 cm. Normal renal cortex. The right cortex measures 1.6 cm. There is no demonstrated renal mass or cyst. There is no right hydronephrosis. US/ABD Limited w/ Elastography IMPRESSION: 1. Liver stiffness measures 7.3 kPa compatible with F2-F3 (Mild to moderate liver fibrosis) Metavir score. 2. Hepatomegaly and fatty infiltration of the liver. Electronically Signed: Booker Burrows MD at 14:16 EST ,
== END | disposition home or self-care (01) ==
LOC: US 07:15
PROVIDERS: PCP Family Medicine; Referring Provider Internal Medicine Gastroenterology; Visit Provider Internal Medicine Gastroenterology
DX: K58.0 Irritable bowel syndrome with diarrhea (principal); R94.8 Abnormal results of function studies of other organs and systems
CPT/HCPCS: 76705; 76981

== ENCOUNTER → 2025-08-12 | Outpatient (CLI) | payer OTHER, SELFPAY ==
[2025-08-12 17:48] LABS: Hematocrit 47.8 % (40-54); Hemoglobin 16.1 g/dL (13.0-16.5); Immature Granulocytes Count 0.030 X10^3/uL (0.0-0.0); Mean Corp Hgb Conc 33.7 g/dL (32-36); Mean Corpuscular Volume 88.4 fL (80-94); Mean Platelet Vol. 9.7 fl (6.2-12.0); NRBC Flagged by Analyzer 0 % (0-5); Platelet Count 347 K/mm3 (150-450); RBC Distribution Width CV 12.1 % (11.6-14.6); RBC Distribution Width SD 39.3 fl (35.1-43.9); Red Blood Count 5.41 M/mm3 (4.6-6.2); White Blood Count 10.4 K/mm3 (4.4-11.0)
[2025-08-12 18:06] LABS: AST(SGOT) 26 U/L (<=37); Alanine Aminotransfer ALT/SGPT 27 U/L (<=46); Albumin, Serum 4.6 g/dL (3.5-5.0); Alkaline Phosphatase 75 U/L (40-129); Anion Gap 13 (5-15); BUN 16 mg/dL (4-19); BUN/Creat Ratio 16.9 RATIO (10-20); Calcium,Total 10.1 mg/dL (7.6-11.0); Carbon Dioxide 24.9 mmol/L (21.0-32.0); Chloride 104 mmol/L (98-108); Cholesterol 236 mg/dL (<=200); Ferritin 195 ng/mL (37-417); Globulin 3.0 g/dL (2.2-4.2); Glucose 92 mg/dL (70-99); Low Density Lipoprotein Calc. 92 mg/dL; Potassium 3.9 mmol/L (3.3-5.1); Triglycerides 680 mg/dL; Very Low Density Lipoprotein 136 mg/dL (5-40); Vitamin B12 1050 pg/mL (180-914); cholesterol:hdl ratio screen 7.66
--- OUTSIDE RECORDS SUMMARY | 2025-08-12 19:11 | XMS RPT_ITS | CCD ---
Author Organization [facility] Care Team Providers Care Decorative Engraver Apprentice Name Role Phone Dr. Paul Pope Primary Care Provider Dr. Paul Pope Referring Provider [phone] Dr. Benedict Canales Attending Provider [phone] Dr. Benedict Canales Other Provider [phone] Dr. Paul Pope Primary Care Provider [phone] Paul Pope Referring Provider [phone] Dr. Benedict Canales Attending Provider [phone], DIVISION ROADMASTER-C Na Atkinson Attending Provider [phone] Dr. Paul Pope Primary Care Provider [phone] Paul Pope Referring Provider [phone] Dr. Paul Pope Primary Care Provider [phone] Paul Pope Referring Provider [place] ROADMASTER, DIVISION ROADMASTER-C Na Atkinson Attending Provider [phone] Dr. Paul Pope Primary Care Provider [phone] Paul Pope Referring Provider [address] [facility] [address]ADMA[employer], DIVISION ROADMASTER-C Na Demetrio Attending Provider Dr. Paul Pope Primary Care Provider [phone] Paul Pope Referring Provider [address]ADMA[employer], DIVISION ROADMASTER-C Na M Attending Provider [phone] Dr. Paul Pope Primary Care Provider [phone] Paul Pope Referring Provider [phone] Dr. Benedict Canales Attending Provider Pope, Paul Referring Unavailable Friend, Benedict Attending Unavailable Pope, Paul Primary Care Unavailable Pope, Paul Referring Unavailable Pope, Paul Primary Care Unavailable Friend, Benedict Attending Unavailable Pope, Paul Primary Care Unavailable Friend, Benedict Attending Unavailable Friend, Benedict Referring Unavailable Pope, Paul Attending Unavailable Pope, Paul Primary Care Unavailable Pope, Paul Primary Care Unavailable Friend, Benedict Attending Unavailable Friend, Benedict Referring Unavailable Pope, Paul Primary Care Unavailable Pope, Paul Attending Unavailable Pope, Paul Referring Unavailable Medications Current Medications Medication Drug Class(es) Dates Sig (Normalized) Sig (Original) allopurinol 300 mg oral tablet (10 sources) Xanthine Oxidase Inhibitor Start: 07-19-2014 take 600 mg by mouth at bedtime Allopurinol Active 600 MG PO AT BEDTIME July 19, 2014 12:00am amLODIPine 5 mg oral tablet (10 sources) Dihydropyridine Calcium Channel Lydia Start: 07-19-2014 take 5 mg by mouth at bedtime Amlodipine Active 5 MG PO AT BEDTIME July 19, 2014 12:00am DULoxetine 30 mg delayed release oral capsule (1 source) Serotonin and Norepinephrine Reuptake Inhibitor Start: 02-16-2023 take 1 capsule by mouth once daily, then take 2 capsules by mouth once daily Duloxetine (Cymbalta) 30 mg capsule,delayed release(DR/EC) Active 30 MG PO DAILY 60 February 15, 2023 11:00pm start with 30 mg capsule once daily, after one week increase to 60 mg (2 capsules) once daily ursodiol 300 mg oral capsule (16 sources) Bile Acid Start: 08-16-2021 End: 07-06-2022 take 300 mg by mouth twice daily Ursodiol Active 300 MG PO TWICE A DAY 180 July 06, 2022 3:28pm 1 ml ustekinumab 90 mg/ml prefilled syringe (20 sources) Interleukin-12 Antagonist, Interleukin-23 Antagonist Start: 06-14-2022 End: 02-16-2023 Ustekinumab (Stelara) 90 mg/mL syringe Active 90 MG SC every 4 weeks 1 February 16, 2023 7:28am Start: 11-02-2021 End: 06-14-2022 Ustekinumab (Stelara) 90 mg/ mL syringe Discontinued 90 MG SC every 8 weeks January 25, 2022 1:27pm June 14, 2022 1:34pm Inject one syringe every eight weeks, starting eight weeks after infusion. Start: 11-02-2021 End: 02-25-2022 Ustekinumab (Stelara) 130 mg /26 mL solution Discontinued 520 MG .Route ONCE November 02, 2021 12:00am February 25, 2022 2:24pm onceInfuse 520 miligrams for a weight of 131.8 kilograms Completed/Discontinued Medications Medication Drug Class(es) Dates Sig (Normalized) Sig (Original) acetaminophen 325 mg / oxyCODONE hydrochloride 5 mg oral tablet (20 sources) Opioid Agonist Start: 05-01-2019 End: 05-06-2019 take 1 tablet by mouth every four hours as needed Oxycodone-Acetamino phen Discontinued 1 TABLET PO EVERY 4 HOURS NEEDED 14 May 01, 2019 May 05, 2019 11:08pm Start: 04-08-2019 End: 04-13-2019 take 1 tablet by mouth every six hours as needed Oxycodone-Acetaminophen Discontinued 1 TABLET PO EVERY 6 HOURS NEEDED 12 3 April 08, 2019 April 12, 2019 11:10pm budesonide 3 mg delayed release oral capsule (20 sources) Corticosteroid Start: 11-04-2021 End: 02-25-2022 take 9 mg by mouth once daily Budesonide Discontinued 9 MG PO DAILY 90 November 04, 2021 4:19pm February 25, 2022 2:23pm Start: 08-31-2021 End: 11-04-2021 take 6 mg by mouth once daily Budesonide Discontinued 6 MG PO DAILY 60 August 31, 2021 12:00am November 04, 2021 4:19pm ciprofloxacin 500 mg oral tablet (10 sources) Quinolone Antimicrobial Start: 05-01-2019 End: 08-03-2021 take 500 mg by mouth twice daily Ciprofloxacin Hcl Discontinued 500 MG PO TWICE A DAY 6 April 30, 2019 11:00pm August 03, 2021 10:57am dicyclomine hydrochloride 10 mg oral capsule (16 sources) Anticholinergic Start: 05-02-2022 End: 07-25-2022 take 10 mg by mouth twice daily Dicyclomine Discontinued 10 MG PO TWICE A DAY 60 May 03, 2022 11:00pm July 25, 2022 8:56am gabapentin 300 mg oral capsule (6 sources) Anti-epileptic Agent Start: 07-25-2022 End: 12-22-2022 take 300 mg by mouth at bedtime Gabapentin Discontinued 300 MG PO AT BEDTIME July 25, 2022 12:00am December 22, 2022 10:37am Problems Problem Classification Problem Date Documented Da te Episodic/Chronic Abdominal pain (20 sources) Right lower quadrant pain; Translations: [Right lower quadrant pain] Episodic Esophageal disorders (11 sources) Duodenogastric reflux; Translations: [Gastro-esophageal reflux disease without esophagitis] Chronic Gout and other crystal arthropathies (10 sources) Gout; Translations: [Gout, unspecified] 05-01-2019 Chronic Other gastrointestinal disorders (6 sources) Irritable bowel syndrome; Translations: [Irritable bowel syndrome without diarrhea] 07-25-2022 Chronic Other gastrointestinal disorders (4 sources) Irritable bowel syndrome without diarrhea; Translations: [Irritable bowel syndrome] Onset: 08-05-2024 Chronic Other gastrointestinal disorders (10 sources) Dysphagia; Translations: [Dysphagia, unspecified] 08-03-2021 Episodic Other gastrointestinal disorders (18 sources) Diarrhea; Translations: [Diarrhea, unspecified] 05-25-2022 Episodic Other gastrointestinal disorders (4 sources) Diarrhea, unspecified; Translations: [Diarrhea] Onset: 08-05-2024 Episodic Other liver diseases (4 sources) Non-alcoholic fatty liver; Translations: [Fatty (change of) liver, not elsewhere classified] Chronic Other liver diseases (14 sources) Fatty (change of) liver, not elsewhere classified; Translations: [Other chronic nonalcoholic liver disease] Onset: 02-12-2024 Chronic Other nutritional; endocrine; and metabolic disorders (10 sources) Body mass index 30+ - obesity; Translations: [Obesity, unspecified] 05-01-2019 Chronic Other nutritional; endocrine; and metabolic disorders (10 sources) Weight loss; Translations: [Abnormal weight loss] 08-31-2021 Episodic Other nutritional; endocrine; and metabolic disorders (2 sources) Abnormal weight loss; Translations: [Loss of weight] Episodic Other screening for suspected conditions (not mental disorders or infectious disease) (10 sources) Imaging of biliary tract abnormal; Translations: [Abnormal results of function studies of other organs and systems] Onset: 09-25-2024 Episodic Regional enteritis and ulcerative colitis (20 sources) Crohn's disease; Translations: [Crohn's disease, unspecified, without complications] Onset: 02-02-2024 Chronic Results Test Name Value Interpretation Reference Range Facility ABD Limited w/ Elastographyo n 08-19-2024 ABD Limited w/ Elastography [facility] [address] [place], [place] [address] ABD Limited w/ Elastography MR#: [id number] Acct: [id number] Name: KALEIGH BLACK Rep #: [id number] : 1985 M 39 From: Booker garcia MD PCP: Dr. Paul Pope MD Status: REG CL Study: ABD Limited w/ Elastography Date of Exam: 08/04 02/25 Exam# [id number] Ordering Dr: Benedict Canales DO [id number] STUDY: ABDOMINAL ULTRASOUND - RIGHT UPPER QUADRANT; ELASTOGRAPHY REASON FOR VISIT: Male, 39 years old. Fatty infiltration of the liver. TECHNIQUE: Ultrasound evaluation of the right upper quadrant was performed with real-time and static alfaro-scale imaging. Point quantification shear wave elastography was performed ([employer]). TECHNICAL QUALITY: Limited. Examination limited due to obesity. COMPARISON: Comparison is made with prior study June 17, 2021. FINDINGS: Liver: The liver is enlarged and measures 19.6 cm. There is increased echogenicity consistent with fatty infiltration. The bile ducts are within normal limits. There is hepatic color flow. The direction of portal flow is hepatopetal. There is no demonstrated mass lesion. Median liver stiffness measured 7.3 kPa. Gallbladder: Normal distended gallbladder. The gallbladder wall measures 3 mm. There is a negative sonographic Plata''s sign. There is no pericholecystic fluid. There are no gallstones. Common Bile Duct (C.B.D.): The common bile duct not visualized. Pancreas: There is normal echogenicity of the visualized pancreas. There is no demonstrated pancreatic mass or cyst. Right Kidney: Normal size of the right kidney. The right kidney measures 12.7 cm x 5.4 cm x 4.9 cm. Normal renal cortex. The right cortex measures 1.6 cm. There is no demonstrated renal mass or cyst. There is no right hydronephrosis. US/ABD Limited w/ Elastography IMPRESSION: 1. Liver stiffness measures 7.3 kPa compatible with F2-F3 (Mild to moderate liver fibrosis) Metavir score. 2. Hepatomegaly and fatty infiltration of the liver. Electronically Signed: Booker Burrows MD at 14:16 EST Reading Location ID and State: [facility] / [place] , Service support , CC: Dr. Paul Pope MD; Benedict Canales DO Electroencephalographic Technologist: Signed Normal [facility] Gastroenterology Visit Repor ton 08-05-2024 Gastroenterology Visit Report [facility] [address] [place] [address] OFFICE VISIT Date of Service: 08/05/24 MR#: [id number] Acct: [id number] Name: KALEIGH BLACK Rep #: [id number] : 1985 Provider: Benedict Canales DO Age/Sex: 39/M Location: [facility] [place] Status: Signed Intake Vital Signs 07/25/22 08:31 Height 6 ft 1 in Intake Visit Reasons: 6 M FU Accompanied by: Self Is patient in pain?: Yes (RUQ) Pain scale (1-10): 3 Allergies No Known Allergies Allergy (Verified 08/05/24 10:12) Medications ???Medication ???Instructions ???Recorded ???Confirmed ???Type allopurinol 300 mg tablet 600 mg PO QHS 07/19/14 08/05/24 History amlodipine 5 mg tablet 5 mg PO QHS 07/19/14 08/05/24 History ursodiol 300 mg capsule 300 mg PO BID #180 caps 07/06/22 08/05/24 Rx ustekinumab 90 mg/mL subcutaneous 90 mg subcut Q8W #1 mL 01/31/24 08/05/24 Rx syringe (Stelara) PFSH Medical History Wears glasses History of steroid therapy Kidney stones History of Crohn's disease Chewing tobacco use Weight loss Dysphagia Fatty liver disease, nonalcoholic HTN (hypertension) Surgical History Hx of colonoscopy History of cystoscopy Social History Smoking Status: Never smoker HPI HPI Details: KALEIGH BLACK, is a 39 M who presents to the office today for Prior workup: ? US 06.17.21 hepatic measurement 18.4 with fatty infiltration ? Stool 06.17.21 EP WNL ? HIDA 07.05.21 EF 52% with duodenal gastric reflux ? Elastography 08.12.21 hepatic stiffness 8kPa *BGI established 08.03.21 with intermittent dysphagia, abdominal bloating, nausea, decreased appetite and loose stools with mucus with onset 2013. ? Stool C.difficile WNL OV 08.31.21 with continued symptoms without change of abdominal discomfort and loose stools 5-6/day. Xifaxan ineffective. Nystatin improved dysphagia ? CT abd/pel 09.24.21 wall thickening and inflammatory changes of TI extending into IC valve and cecum, Crohn???s; borderline retroperitoneal lymphadenopathy. OV 10.12.21 with symptoms ongoing. ? EGD and colonoscopy 12.09.21 EGD non-bleeding duodenal ulcer; benign duodenal mass, Ev gland hyperplasia ? Colonoscopy mild sigmoid inflammation, colitis; severe TI stricture, balloon 15mm; TI ulcer with glandular distortion and inflammation. OV 12.23.21 with right sided abdominal discomfort which reports interrupts daily activities. Loose stools occur 2/day. Ursodiol, Vit E continues; hyoscyamine not utilized. OV 02.25. with abdominal discomfort but this continues to improve with use of Stelara. OV 05.25.22 RLQ abdominal tenderness and loose stools ? Stool fat, elastase WNL OV 07.25.22 ongoing abdominal pain/loose stools. Recommend gabapentin for possible IBS. Possible pancreatic enzymes and amitriptyline. ? MRCP 08.23.22 hepatic measurement 21.6; R/L bile ducts join at level of cystic duct, anatomical variant; splenomegaly 15.5cm ? CT abd/pel 2.21.23 circumferential wall thickening of TI involving cecum. OV 4.20.23 with right sided abdominal pain and loose stools. Stelara Q8W not effective; currently maintained on Stelara Q4W. Possible change to Humira. This was not pursued as workup not indicative of IBD and IBS addressed. OV 7.26.23 with ongoing right sided abdominal pain. OV 12.28.23 with right sided abdominal pain 5/10. BM are typically normal but will have loose stools 1-2/week. Reports 1-2 servings of fruit/vegetables each day; carbohydrates are large part of each meal with snacking on chips between meals. OV 5.31.24 pt reports daily abdominal pain, unable to identify aggravating or alleviating factors. Pt reports up to 4 formed bm per day; denies blood in the stool. Pt reports that he will have loose stools 1-2 times a week. Pt continues with Stelara and ursodiol. ? ESR/CRP? Calp/lact? Serum/ab 11.30.21 17/<2.9? --/--? --/--? CBC, CMP, TSH, GAME, celiac without pe (more content not included)... Normal [facility] CBC W/Diff, Automatedon 11- Absolute Lymph 1.98 X10 3/uL Normal 0.83-4.51 [facility] Comment on above: Order Comment: Order Date: 07/23/24 Order Info: 183- - CBCD Order Info: [id number] - SED Performed By: #### L 501.1400, L500.4050, L101.9900, L501.6710, L100.0100 #### [facility] [address] [place], [address] Absolute Neut 5.8 X10 3/uL Normal 2.0-7.7 [facility] Comment on above: Order Comment: Order Date: 07/23/24 Order Info: [id number] - CBCD Order Info: [id number] - SED Performed By: #### L 501.1400, L500.4050, L101.9900, L501.6710, L100.0100 #### [facility] [address] [place], [address] Basophils/100 WBC (Bld) 0.9 % Normal 0-1 [facility] Comment on above: Order Comment: Order Date: 07/23/24 Order Info: [id number] - CBCD Order Info: [id number] - SED Performed By: #### L 501.1400, L500.4050, L101.9900, L501.6710, L100.0100 #### [facility] [address] [place], [address] Eosinophils/100 WBC (Bld) 1.2 % Normal 0-5 [facility] Comment on above: Order Comment: Order Date: 07/23/24 Order Info: [id number] - CBCD Order Info: [id number] - SED Performed By: #### L 501.1400, L500.4050, L101.9900, L501.6710, L100.0100 #### [facility] [address] [place], [address] Erythrocyte distribution width (RBC) [Ratio] 12.5 % Normal 11.6-14.6 [facility] Comment on above: Order Comment: Order Date: 07/23/24 Order Info: 183-09 - CBCD Order Info: [id number] - SED Performed By: #### L 501.1400, L500.4050, L101.9900, L501.6710, L100.0100 #### [facility] [address] [place], [address] Hematocrit (Bld) [Volume fraction] 48.9 % Normal 40-54 [facility] Comment on above: Order Comment: Order Date: 07/23/24 Order Info: 183-09 - CBCD Order Info: [id number] - SED Performed By: #### L 501.1400, L500.4050, L101.9900, L501.6710, L100.0100 #### [facility] [address] [facility] [place], [address] Hemoglobin (Bld) [Mass/Vol] 15.8 g/dL Normal 13.0-16.5 [facility] Comment on above: Order Comment: Order Date: 07/23/24 Order Info: 183-09 - CBCD Order Info: [id number] - SED Performed By: #### L 501.1400, L500.4050, L101.9900, L501.6710, L100.0100 #### [facility] [address] [facility] [place], [address] IG% 0.300 Normal 0.0-0.9 [facility] Comment on above: Order Comment: Order Date: 07/23/24 Order Info: 183-09 - CBCD Order Info: [id number] - SED Result Comment: IG% - Immature Granulocytes (promyelocytes, myelocytes and metamyelocytes) > 1% indicates that a LEFT SHIFT is Present. Performed By: #### L 501.1400, L500.4050, L101.9900, L501.6710, L100.0100 #### [facility] [address] [place], [address] Lymphocytes/100 WBC (Bld) 22.4 % Normal 19-41 [facility] Comment on above: Order Comment: Order Date: 07/23/24 Order Info: [id number] - CBCD Order Info: [id number] - SED Performed By: #### L 501.1400, L500.4050, L101.9900, L501.6710, L100.0100 #### [facility] [address] [place], [address] MCH (RBC) [Entitic mass] 28.9 pg Normal 27.0-32.0 [facility] Comment on above: Order Comment: Order Date: 07/23/24 Order Info: 183-09 - CBCD Order Info: [id number] - SED Performed By: #### L 501.1400, L500.4050, L101.9900, L501.6710, L100.0100 #### [facility] [address], [address] MCHC (RBC) [Mass/Vol] 32.3 g/dL Normal 32-36 [facility] Comment on above: Order Comment: Order Date: 07/23/24 Order Info: [id number] - CBCD Order Info: [id number] - SED Performed By: #### L 501.1400, L500.4050, L101.9900, L501.6710, L100.0100 #### [facility] [address] [place], [address] MCV (RBC) [Entitic vol] 89.4 fL Normal 80-94 [facility] Comment on above: Order Comment: Order Date: 07/23/24 Order Info: [id number] - CBCD Order Info: [id number] - SED Performed By: #### L 501.1400, L500.4050, L101.9900, L501.6710, L100.0100 #### [facility] [address] [place], [address] Monocytes/100 WBC (Bld) 9.1 % Normal 0-10 [facility] Comment on above: Order Comment: Order Date: 07/23/24 Order Info: [id number]- - CBCD Order Info: [id number] - SED Performed By: #### L 501.1400, L500.4050, L101.9900, L501.6710, L100.0100 #### [facility] [address] [place], [address] Neutrophils/100 WBC (Bld) 66.1 % Normal 47-70 [facility] Comment on above: Order Comment: Order Date: 07/23/24 Order Info: 0184- - CBCD Order Info: [id number] - SED Performed By: #### L 501.1400, L500.4050, L101.9900, L501.6710, L100.0100 #### [facility] [address] [place], [address] Nucleated RBC (Bld) [#/Vol] 0 10*3/uL Normal 0-5 [facility] Comment on above: Order Comment: Order Date: 07/23/24 Order Info: 0184- - CBCD Order Info: [id number] - SED Performed By: #### L 501.1400, L500.4050, L101.9900, L501.6710, L100.0100 #### [facility] [address] [place], [address] Platelet mean volume (Bld) [Entitic vol] 10.2 fL Normal 6.2-12.0 [facility] Comment on above: Order Comment: Order Date: 07/23/24 Order Info: 0184- - CBCD Order Info: [id number] - SED Performed By: #### L 501.1400, L500.4050, L101.9900, L501.6710, L100.0100 #### [facility] [address] [place], [address] Platelets (Bld) [#/Vol] 396 10*3/uL Normal 150-450 [facility] Comment on above: Order Comment: Order Date: 07/23/24 Order Info: 018- - CBCD Order Info: [id number] - SED Performed By: #### L 501.1400, L500.4050, L101.9900, L501.6710, L100.0100 #### [facility] [address] [place], [address] RBC (Bld) [#/Vol] 5.47 10*6/uL Normal 4.6-6.2 [facility] Comment on above: Order Comment: Order Date: 07/23/24 Order Info: [id number] - CBCD Order Info: [id number] - SED Performed By: #### L 501.1400, L500.4050, L101.9900, L501.6710, L100.0100 #### [facility] [address] [place], [address] RDW SD 41.0 fl Normal 35.1-43.9 [facility] Comment on above: Order Comment: Order Date: 07/23/24 Order Info: [id number] - CBCD Order Info: [id number] - SED Performed By: #### L 501.1400, L500.4050, L101.9900, L501.6710, L100.0100 #### [facility] [address] [place], [address] WBC (Bld) [#/Vol] 8.8 10*3/uL Normal 4.4-11.0 [facility] Comment on above: Order Comment: Order Date: 07/23/24 Order Info: 018- - CBCD Order Info: [id number] - SED Performed By: #### L 501.1400, L500.4050, L101.9900, L501.6710, L100.0100 #### [facility] [address] [place], [place], [address] CRPon 07-23-2024 C-REACTIVE PROT < 2.90 Normal 0.0-3.0 [facility] Comment on above: Order Comment: Order Date: 07/23/24Order Info: [id number] - CMPOrder Info: [id number] - URICOrder Info: [id number] - CRP Result Comment: C-Re active Protein (CRP) provides useful information for the diagnosis, therapy and monitoring of inflammatory processes and associated diseases. For the evaluation of Relative Risk for Cardiovascular Disease, a High Sensitivity CRP (HSCRP) should be ordered. Performed By: #### L 501.1400, L500.4050, L101.9900, L501.6710, L100.0100 ####[facility] [address] [place], [place], [address] Comprehensive Metabolic Prof ilon 07-23-2024 Albumin [Mass/Vol] 4.4 g/dL Normal 3.2-5.0 [facility] Comment on above: Order Comment: Order Date: 07/23/24Order Info: [id number] - CMPOrder Info: [id number] - URICOrder Info: [id number] - CRP Performed By: #### L 501.1400, L500.4050, L101.9900, L501.6710, L100.0100 ####[facility] [address] [place], [place], [address] Albumin/Globulin [Mass ratio] 1.1 {ratio} Normal 0.9-2.4 [facility] Comment on above: Order Comment: Order Date: 07/23/24Order Info: [id number] - CMPOrder Info: 4 - URICOrder Info: [id number] - CRP Performed By: #### L 501.1400, L500.4050, L101.9900, L501.6710, L100.0100 ####[facility] [address] [place], [address] ALK P 81 U/L Normal 45-117 [facility] Comment on above: Order Comment: Order Date: 07/23/24Order Info: 86-1 - CMPOrder Info: [id number] - URICOrder Info: [id number] - CRP Performed By: #### L 501.1400, L500.4050, L101.9900, L501.6710, L100.0100 ####[facility] [address] [place], [address] ALT [Catalytic activity/Vol] 29 U/L Normal 16-61 [facility] Comment on above: Order Comment: Order Date: 07/23/24Order Info: [id number]- - CMPOrder Info: [id number] - URICOrder Info: [id number] - CRP Performed By: #### L 501.1400, L500.4050, L101.9900, L501.6710, L100.0100 ####[facility] [address] [place], [address] AST [Catalytic activity/Vol] 14 U/L Low 15-37 [facility] Comment on above: Order Comment: Order Date: 07/23/24Order Info: [id number] - CMPOrder Info: [id number] - URICOrder Info: [id number] - CRP Performed By: #### L 501.1400, L500.4050, L101.9900, L501.6710, L100.0100 ####[facility] [address] [place], [address] Bilirubin [Mass/Vol] 0.50 mg/dL Normal 0.20-1.00 [facility] Comment on above: Order Comment: Order Date: 07/23/24Order Info: 07-1 - CMPOrder Info: [id number] - URICOrder Info: [id number] - CRP Result Comment: For patients on eltrombopag therapy, use of Dimension [place] TBIL is not recommended. Performed By: #### L 501.1400, L500.4050, L101.9900, L501.6710, L100.0100 ####[facility] [address] [place], [address] BUN/CRE 16.9 RATIO Normal 10-20 [facility] Comment on above: Order Comment: Order Date: 07/23/24Order Info: 0786-1 - CMPOrder Info: [id number]- - URICOrder Info: [id number] - CRP Performed By: #### L 501.1400, L500.4050, L101.9900, L501.6710, L100.0100 ####[facility] [address] [place], [address] CA,Total 9.9 mg/dL Normal 8.5-10.1 [facility] Comment on above: Order Comment: Order Date: 07/23/24Order Info: 86-1 - CMPOrder Info: [id number] - URICOrder Info: [id number] - CRP Performed By: #### L 501.1400, L500.4050, L101.9900, L501.6710, L100.0100 ####[facility] [address] [place], [address] Chloride [Moles/Vol] 105 mmol/L Normal 98-107 [facility] Comment on above: Order Comment: Order Date: 07/23/24Order Info: 0786-1 - CMPOrder Info: [id number] - URICOrder Info: [id number] - CRP Performed By: #### L 501.1400, L500.4050, L101.9900, L501.6710, L100.0100 ####[facility] [address] [place], [address] CO2 [Moles/Vol] 25.0 mmol/L Normal 21.0-32.0 [facility] Comment on above: Order Comment: Order Date: 07/23/24Order Info: 0786-1 - CMPOrder Info: [id number] - URICOrder Info: [id number] - CRP Performed By: #### L 501.1400, L500.4050, L101.9900, L501.6710, L100.0100 ####[facility] [address] [place], [address] Creatinine [Mass/Vol] 0.89 mg/dL Normal 0.70-1.30 [facility] Comment on above: Order Comment: Order Date: 07/23/24Order Info: 86-1 - CMPOrder Info: [id number] - URICOrder Info: [id number] - CRP Result Comment: The validity of the calculated GFR GFRAA in patients over 70 years has not been determined. Clinical correlation is essential. Performed By: #### L 501.1400, L500.4050, L101.9900, L501.6710, L100.0100 ####[facility] [address] [place], [address] EST GFR - AA 122 mL/min Normal >60 [facility] Comment on above: Order Comment: Order Date: 07/23/24Order Info: 07 - CMPOrder Info: [id number] - URICOrder Info: [id number] - CRP Result Comment: Afri can [place] GFR Calc Performed By: #### L 501.1400, L500.4050, L101.9900, L501.6710, L100.0100 ####[facility] [address] [place], [address] GAP 6 Normal 5-15 [facility] Comment on above: Order Comment: Order Date: 07/23/24Order Info: 07-1 - CMPOrder Info: [id number] - URICOrder Info: [id number] - CRP Performed By: #### L 501.1400, L500.4050, L101.9900, L501.6710, L100.0100 ####[facility] [address] [place], [address] GFR/1.73 sq M.predicted among non-blacks MDRD (S/P/Bld) [Vol rate/Area] 101 mL/min/{1.73_m2} Normal >60 [facility] Comment on above: Order Comment: Order Date: 07/23/24Order Info: 86-1 - CMPOrder Info: 1 - URICOrder Info: [id number] - CRP Result Comment: Non- GFR Calc Performed By: #### L 501.1400, L500.4050, L101.9900, L501.6710, L100.0100 ####[facility] [address] [place], [address] Globulin (S) [Mass/Vol] 3.9 g/dL Normal 2.2-4.2 [facility] Comment on above: Order Comment: Order Date: 07/23/24Order Info: 785- - CMPOrder Info: [id number] - URICOrder Info: [id number] - CRP Performed By: #### L 501.1400, L500.4050, L101.9900, L501.6710, L100.0100 ####[facility] [address] [place], [address] Glucose [Mass/Vol] 109 mg/dL High 74-106 [facility] Comment on above: Order Comment: Order Date: 07/23/24Order Info: 785-1 - CMPOrder Info: [id number] - URICOrder Info: [id number] - CRP Result Comment: Fast ing Glucose result from 100 to 125 mg/dL suggests IMPAIRED HOMEOSTASIS per A.D.A. criteria. Performed By: #### L 501.1400, L500.4050, L101.9900, L501.6710, L100.0100 ####[facility] [address] [place], [address] Potassium [Moles/Vol] 4.2 mmol/L Normal 3.5-5.1 [facility] Comment on above: Order Comment: Order Date: 07/23/24Order Info: 86-1 - CMPOrder Info: 3084-1 - URICOrder Info: [id number] - CRP Performed By: #### L 501.1400, L500.4050, L101.9900, L501.6710, L100.0100 ####[facility] [address] [place], [address] Sodium [Moles/Vol] 135 mmol/L Low 136-145 [facility] Comment on above: Order Comment: Order Date: 07/23/24Order Info: 0786-1 - CMPOrder Info: [id number] - URICOrder Info: [id number] - CRP Performed By: #### L 501.1400, L500.4050, L101.9900, L501.6710, L100.0100 ####[facility] [address] [place], [address] T PROT 8.3 g/dL High 6.4-8.2 [facility] Comment on above: Order Comment: Order Date: 07/23/24Order Info: 0786-1 - CMPOrder Info: [id number] - URICOrder Info: [id number] - CRP Performed By: #### L 501.1400, L500.4050, L101.9900, L501.6710, L100.0100 ####[facility] [address] [place], [address] Urea nitrogen [Mass/Vol] 15 mg/dL Normal 7-18 [facility] Comment on above: Order Comment: Order Date: 07/23/24Order Info: 0786-1 - CMPOrder Info: [id number] - URICOrder Info: [id number] - CRP Performed By: #### L 501.1400, L500.4050, L101.9900, L501.6710, L100.0100 ####[facility] [address] [place], [address] Erythrocyte Sed Rateon 07-23 SED RATE 21 mm/hr High 0-20 [facility] Comment on above: Order Comment: Order Date: 07/23/24 Order Info: 0184-1 - CBCD Order Info: [id number] - SED Performed By: #### L 501.1400, L500.4050, L101.9900, L501.6710, L100.0100 #### [facility] [address] [place], [address] Magnesiumon 07-23-2024 Magnesium [Mass/Vol] 2.3 mg/dL Normal 1.6-2.6 [facility] Comment on above: Order Comment: Order Date: 07/23/24 Order Info: 0786-1 - CMP Order Info: [id number] - URIC Order Info: [id number] - CRP Performed By: #### L 501.5200 #### [facility] [address] [place], [address] Uric Acidon 07-23-2024 URIC 5.7 mg/dL Normal 3.5-7.2 [facility] Comment on above: Order Comment: Order Date: 07/23/24Order Info: 0786-1 - CMPOrder Info: 3084 - URICOrder Info: [id number] - CRP Result Comment: The drugs N-Acetylcysteine and Metamizole may falsely depress this assay. Performed By: #### L 501.1400, L500.4050, L101.9900, L501.6710, L100.0100 ####[facility] [address] [place], [address] CBC W/Diff, Automatedon 05-3 Absolute Lymph 2.17 X10 3/uL Normal 0.83-4.51 [facility] Comment on above: Performed By: #### L 501.6710, L100.0100, L101.9900 ####[facility] [address] [place], [address] Absolute Neut 5.1 X10 3/uL Normal 2.0-7.7 [facility] Comment on above: Performed By: #### L 501.6710, L100.0100, L101.9900 ####[facility] [address] [place], [address] Basophils/100 WBC (Bld) 1.2 % High 0-1 [facility] Comment on above: Performed By: #### L 501.6710, L100.0100, L101.9900 ####[facility] [address] [place], [address] Eosinophils/100 WBC (Bld) 1.3 % Normal 0-5 [facility] Comment on above: Performed By: #### L 501.6710, L100.0100, L101.9900 ####[facility] [address] [place], [address] Erythrocyte distribution width (RBC) [Ratio] 12.1 % Normal 11.6-14.6 [facility] Comment on above: Performed By: #### L 501.6710, L100.0100, L101.9900 ####[facility] [address] [place], [address] Hematocrit (Bld) [Volume fraction] 48.3 % Normal 40-54 [facility] Comment on above: Performed By: #### L 501.6710, L100.0100, L101.9900 ####[facility] [address] [place], [address] Hemoglobin (Bld) [Mass/Vol] 16.0 g/dL Normal 13.0-16.5 [facility] Comment on above: Performed By: #### L 501.6710, L100.0100, L101.9900 ####[facility] [address] [place], [address] IG% 0.200 Normal 0.0-0.9 [facility] Comment on above: Result Comment: IG% - Immature Granulocytes (promyelocytes, myelocytes and metamyelocytes) > 1% indicates that a LEFT SHIFT is Present. Performed By: #### L 501.6710, L100.0100, L101.9900 ####[facility] [address] [place], [address] Lymphocytes/100 WBC (Bld) 26.5 % Normal 19-41 [facility] Comment on above: Performed By: #### L 501.6710, L100.0100, L101.9900 ####[facility] [address] [place], [address] MCH (RBC) [Entitic mass] 29.0 pg Normal 27.0-32.0 [facility] Comment on above: Performed By: #### L 501.6710, L100.0100, L101.9900 ####[facility] [address] [place], [address] MCHC (RBC) [Mass/Vol] 33.1 g/dL Normal 32-36 [facility] Comment on above: Performed By: #### L 501.6710, L100.0100, L101.9900 ####[facility] [address] [place], [address] MCV (RBC) [Entitic vol] 87.5 fL Normal 80-94 [facility] Comment on above: Performed By: #### L 501.6710, L100.0100, L101.9900 ####[facility] [address] [place], [address] Monocytes/100 WBC (Bld) 8.3 % Normal 0-10 [facility] Comment on above: Performed By: #### L 501.6710, L100.0100, L101.9900 ####[facility] [address] [place], [address] Neutrophils/100 WBC (Bld) 62.5 % Normal 47-70 [facility] Comment on above: Performed By: #### L 501.6710, L100.0100, L101.9900 ####[facility] [address] [place], [address] Nucleated RBC (Bld) [#/Vol] 0 10*3/uL Normal 0-5 [facility] Comment on above: Performed By: #### L 501.6710, L100.0100, L101.9900 ####[facility] [address] [place], [address] Platelet mean volume (Bld) [Entitic vol] 9.7 fL Normal 6.2-12.0 [facility] Comment on above: Performed By: #### L 501.6710, L100.0100, L101.9900 ####[facility] [address] [place], [address] Platelets (Bld) [#/Vol] 323 10*3/uL Normal 150-450 [facility] Comment on above: Performed By: #### L 501.6710, L100.0100, L101.9900 ####[facility] [address] [place], [address] RBC (Bld) [#/Vol] 5.52 10*6/uL Normal 4.6-6.2 [facility] Comment on above: Performed By: #### L 501.6710, L100.0100, L101.9900 ####[facility] [address] [place], [address] RDW SD 39.0 fl Normal 35.1-43.9 [facility] Comment on above: Performed By: #### L 501.6710, L100.0100, L101.9900 ####[facility] [address] [place], [address] WBC (Bld) [#/Vol] 8.2 10*3/uL Normal 4.4-11.0 [facility] Comment on above: Performed By: #### L 501.6710, L100.0100, L101.9900 ####[facility] [address] [place], [address] CRPon 02-02-2024 C-REACTIVE PROT < 2.90 Normal 0.0-3.0 [facility] Comment on above: Result Comment: C-Re active Protein (CRP) provides useful information for the diagnosis, therapy and monitoring of inflammatory processes and associated diseases. For the evaluation of Relative Risk for Cardiovascular Disease, a High Sensitivity CRP (HSCRP) should be ordered. Performed By: #### L 501.6710, L100.0100, L101.9900 ####[facility] [address] [place], [address] Comprehensive Metabolic Prof ilon 02-02-2024 Albumin [Mass/Vol] 4.1 g/dL Normal 3.2-5.0 [facility] Comment on above: Order Comment: Order Date: 01/15/24 Order Info: [id number] - CMP Order Info: [id number] - LIPID Order Info: [id number] - MG Performed By: #### L 500.4050, L502.0250, L500.4100 #### [facility] [address] [place], [address] Albumin/Globulin [Mass ratio] 1.1 {ratio} Normal 0.9-2.4 [facility] Comment on above: Order Comment: Order Date: 01/15/24 Order Info: [id number] - CMP Order Info: [id number] - LIPID Order Info: [id number] - MG Performed By: #### L 500.4050, L502.0250, L500.4100 #### [facility] [address] [place], [address] ALK P 75 U/L Normal 45-117 [facility] Comment on above: Order Comment: Order Date: 01/15/24 Order Info: [id number] - CMP Order Info: [id number] - LIPID Order Info: [id number] - MG Performed By: #### L 500.4050, L502.0250, L500.4100 #### [facility] [address] [place], [address] ALT [Catalytic activity/Vol] 37 U/L Normal 16-61 [facility] Comment on above: Order Comment: Order Date: 01/15/24 Order Info: [id number] - CMP Order Info: [id number] - LIPID Order Info: [id number] - MG Performed By: #### L 500.4050, L502.0250, L500.4100 #### [facility] [address] [place], [address] AST [Catalytic activity/Vol] 26 U/L Normal 15-37 [facility] Comment on above: Order Comment: Order Date: 01/15/24 Order Info: 0786-1 - CMP Order Info: [id number] - LIPID Order Info: [id number] - MG Performed By: #### L 500.4050, L502.0250, L500.4100 #### [facility] [address] [place], [address] Bilirubin [Mass/Vol] 0.60 mg/dL Normal 0.20-1.00 [facility] Comment on above: Order Comment: Order Date: 01/15/24 Order Info: 0786-1 - CMP Order Info: [id number] - LIPID Order Info: [id number] - MG Result Comment: For patients on eltrombopag therapy, use of Dimension [place] TBIL is not recommended. Performed By: #### L 500.4050, L502.0250, L500.4100 #### [facility] [address] [place], [address] BUN/CRE 13.4 RATIO Normal 10-20 [facility] Comment on above: Order Comment: Order Date: 01/15/24 Order Info: 0786-1 - CMP Order Info: [id number] - LIPID Order Info: [id number] - MG Performed By: #### L 500.4050, L502.0250, L500.4100 #### [facility] [address] [place], [address] CA,Total 9.4 mg/dL Normal 8.5-10.1 [facility] Comment on above: Order Comment: Order Date: 01/15/24 Order Info: 0786-1 - CMP Order Info: [id number] - LIPID Order Info: [id number] - MG Performed By: #### L 500.4050, L502.0250, L500.4100 #### [facility] [address] [place], [address] Chloride [Moles/Vol] 107 mmol/L Normal 98-107 [facility] Comment on above: Order Comment: Order Date: 01/15/24 Order Info: 07 - CMP Order Info: [id number] - LIPID Order Info: [id number] - MG Performed By: #### L 500.4050, L502.0250, L500.4100 #### [facility] [address] [place], [address] CO2 [Moles/Vol] 24.0 mmol/L Normal 21.0-32.0 [facility] Comment on above: Order Comment: Order Date: 01/15/24 Order Info: 0786-1 - CMP Order Info: [id number] - LIPID Order Info: [id number] - MG Performed By: #### L 500.4050, L502.0250, L500.4100 #### [facility] [address] [place], [address] Creatinine [Mass/Vol] 0.82 mg/dL Normal 0.70-1.30 [facility] Comment on above: Order Comment: Order Date: 01/15/24 Order Info: 0786-1 - CMP Order Info: [id number] - LIPID Order Info: [id number] - MG Result Comment: The validity of the calculated GFR GFRAA in patients over 70 years has not been determined. Clinical correlation is essential. Performed By: #### L 500.4050, L502.0250, L500.4100 #### [facility] [address] [place], [address] EST GFR - AA 134 mL/min Normal >60 [facility] Comment on above: Order Comment: Order Date: 01/15/24 Order Info: 07-1 - CMP Order Info: [id number] - LIPID Order Info: [id number] - MG Result Comment: Afri can [place] GFR Calc Performed By: #### L 500.4050, L502.0250, L500.4100 #### [facility] [address] [place], [address] GAP 5 Normal 5-15 [facility] Comment on above: Order Comment: Order Date: 01/15/24 Order Info: 785- - CMP Order Info: [id number] - LIPID Order Info: [id number] - MG Performed By: #### L 500.4050, L502.0250, L500.4100 #### [facility] [address] [place], [address] GFR/1.73 sq M.predicted among non-blacks MDRD (S/P/Bld) [Vol rate/Area] 111 mL/min/{1.73_m2} Normal >60 [facility] Comment on above: Order Comment: Order Date: 01/15/24 Order Info: 0786-1 - CMP Order Info: [id number] - LIPID Order Info: [id number] - MG Result Comment: Non- GFR Calc Performed By: #### L 500.4050, L502.0250, L500.4100 #### [facility] [address] [place], [address] Globulin (S) [Mass/Vol] 3.7 g/dL Normal 2.2-4.2 [facility] Comment on above: Order Comment: Order Date: 01/15/24 Order Info: [id number] - CMP Order Info: [id number] - LIPID Order Info: [id number] - MG Performed By: #### L 500.4050, L502.0250, L500.4100 #### [facility] [address] [place], [address] Glucose [Mass/Vol] 92 mg/dL Normal 74-106 [facility] Comment on above: Order Comment: Order Date: 01/15/24 Order Info: 785-1 - CMP Order Info: [id number] - LIPID Order Info: [id number] - MG Performed By: #### L 500.4050, L502.0250, L500.4100 #### [facility] [address] [place], [address] Potassium [Moles/Vol] 3.9 mmol/L Normal 3.5-5.1 [facility] Comment on above: Order Comment: Order Date: 01/15/24 Order Info: 785- - CMP Order Info: [id number] - LIPID Order Info: [id number] - MG Performed By: #### L 500.4050, L502.0250, L500.4100 #### [facility] [address] [place], [address] Sodium [Moles/Vol] 136 mmol/L Normal 136-145 [facility] Comment on above: Order Comment: Order Date: 01/15/24 Order Info: 0786-1 - CMP Order Info: [id number] - LIPID Order Info: [id number] - MG Performed By: #### L 500.4050, L502.0250, L500.4100 #### [facility] [address] [place], [address] T PROT 7.8 g/dL Normal 6.4-8.2 [facility] Comment on above: Order Comment: Order Date: 01/15/24 Order Info: 0786-1 - CMP Order Info: [id number] - LIPID Order Info: [id number] - MG Performed By: #### L 500.4050, L502.0250, L500.4100 #### [facility] [address] [place], [address] Urea nitrogen [Mass/Vol] 11 mg/dL Normal 7-18 [facility] Comment on above: Order Comment: Order Date: 01/15/24 Order Info: 0786-1 - CMP Order Info: [id number] - LIPID Order Info: [id number] - MG Performed By: #### L 500.4050, L502.0250, L500.4100 #### [facility] [address] [place], [address] Erythrocyte Sed Rateon 02-01 SED RATE 7 mm/hr Normal 0-20 [facility] Comment on above: Performed By: #### L 501.6710, L100.0100, L101.9900 ####[facility] [address] [place], [address] Gastroenterology Visit Repor ton 02-02-2024 Gastroenterology Visit Report [facility] [address] [place] [address] OFFICE VISIT Date of Service: 02/02/24 MR#: [id number] Acct: [id number] Name: KALEIGH BLACK Rep #: [id number] : 1985 Provider: Benedict Canales DO Age/Sex: 39/M Location: [facility] [place] Status: Signed Intake Vital Signs 07/25/22 08:31 Height 6 ft 1 in Intake Visit Reasons: 5 MO FU Chief Complaint: f/u Crohn's Allergies No Known Allergies Allergy (Verified 03/28/23 08:31) Medications ???Medication ???Instructions ???Recorded ???Confirmed ???Type allopurinol 300 mg tablet 600 mg PO QHS 07/19/14 02/02/24 History amlodipine 5 mg tablet 5 mg PO QHS 07/19/14 02/02/24 History ursodiol 300 mg capsule 300 mg PO BID #180 caps 07/06/22 02/02/24 Rx ustekinumab 90 mg/mL subcutaneous 90 mg subcut Q8W #1 mL 01/31/24 02/02/24 Rx syringe (Stelara) PFSH Medical History (Updated 08/31/23 @ 10:24 by Shameka Fields) Wears glasses History of steroid therapy Kidney stones History of Crohn's disease Chewing tobacco use Weight loss Dysphagia Fatty liver disease, nonalcoholic HTN (hypertension) Surgical History Hx of colonoscopy History of cystoscopy Social History Smoking Status: Never smoker HPI HPI Chief Complaint: f/u Crohn's Details: KALEIGH BLACK, is a 39 M who presents to the office today for follow up. Prior workup: ? US 06.17.21 hepatic measurement 18.4 with fatty infiltration ? Stool 06.17.21 EP WNL ? HIDA 07.05.21 EF 52% with duodenal gastric reflux ? Elastography 08.12.21 hepatic stiffness 8kPa *BGI established 08.03.21 with intermittent dysphagia, abdominal bloating, nausea, decreased appetite and loose stools with mucus with onset 2013. ? Stool C.difficile WNL OV 08.31.21 with continued symptoms without change of abdominal discomfort and loose stools 5-6/day. Xifaxan ineffective. Nystatin improved dysphagia ? CT abd/pel 09.24.21 wall thickening and inflammatory changes of TI extending into IC valve and cecum, Crohn???s; borderline retroperitoneal lymphadenopathy. OV 10.12.21 with symptoms ongoing. ? EGD and colonoscopy 12.09.21 EGD non-bleeding duodenal ulcer; benign duodenal mass, Ev gland hyperplasia ? Colonoscopy mild sigmoid inflammation, colitis; severe TI stricture, balloon 15mm; TI ulcer with glandular distortion and inflammation. OV 12.23.21 with right sided abdominal discomfort which reports interrupts daily activities. Loose stools occur 2/day. Ursodiol, Vit E continues; hyoscyamine not utilized. OV 02.25.22 with abdominal discomfort but this continues to improve with use of Stelara. OV 05.25.22 RLQ abdominal tenderness and loose stools ? Stool fat, elastase WNL OV 07.25.22 ongoing abdominal pain/loose stools. Recommend gabapentin for possible IBS. Possible pancreatic enzymes and amitriptyline. ? MRCP 08.23.22 hepatic measurement 21.6; R/L bile ducts join at level of cystic duct, anatomical variant; splenomegaly 15.5cm ? CT abd/pel 10.25.22 circumferential wall thickening of TI involving cecum. OV 12.22.22 with right sided abdominal pain and loose stools. Stelara Q8W not effective; currently maintained on Stelara Q4W. Possible change to Humira. This was not pursued as workup not indicative of IBD and IBS addressed. OV 7..23 with ongoing right sided abdominal pain. OV 12..23 with right sided abdominal pain 5/10. BM are typically normal but will have loose stools 1-2/week. Reports 1-2 servings of fruit/vegetables each day; carbohydrates are large part of each meal with snacking on chips between meals. OV 5.31.24 pt reports daily abdominal pain, unable to identify aggravating or alleviating factors. Pt reports up to 4 formed bm per day; denies blood in the stool. Pt reports that he will have loose stools 1-2 times a week. Pt continues with Stelara and ursodiol. ? ESR/CRP? Calp/lact? Serum/ab 11.30.21 17/<2.9? --/--? --/--? CBC, CMP, TSH, GAME, celiac without pertinent abn (more content not included)... Normal [facility] Lipid Profileon 02-02-2024 Cholesterol [Mass/Vol] 185 mg/dL Normal 200 [facility] Comment on above: Order Comment: Order Date: 01/15/24 Order Info: 0786-1 - CMP Order Info: [id number] - LIPID Order Info: [id number] - MG Result Comment: <200 mg/dL Desirable 200-240 mg/dL Borderline >240 mg/dL High Risk Performed By: #### L 500.4050, L502.0250, L500.4100 #### [facility] [address] [place], [address] Cholesterol in HDL [Mass/Vol] 33 mg/dL Low [facility] Comment on above: Order Comment: Order Date: 01/15/24 Order Info: [id number] - CMP Order Info: [id number] - LIPID Order Info: [id number] - MG Result Comment: The drugs N-Acetylcysteine and Metamizole may falsely depress this assay. Reference Range HDL <40 mg/dL Low HDL Cholesterol HDL >or= 60 mg/dL High HDL Cholesterol Performed By: #### L 500.4050, L502.0250, L500.4100 #### [facility] [address] [place], [address] Cholesterol in LDL [Mass/Vol] 89 mg/dL Normal 0-130 [facility] Comment on above: Order Comment: Order Date: 01/15/24 Order Info: [id number] - CMP Order Info: [id number] - LIPID Order Info: [id number] - MG Performed By: #### L 500.4050, L502.0250, L500.4100 #### [facility] [address] [place], [address] Cholesterol in VLDL [Mass/Vol] 63 mg/dL High 5-40 [facility] Comment on above: Order Comment: Order Date: 01/15/24 Order Info: [id number] - CMP Order Info: [id number] - LIPID Order Info: - MG Performed By: #### L 500.4050, L502.0250, L500.4100 #### [facility] [address] [place], [address] Triglyceride [Mass/Vol] 316 mg/dL High [facility] Comment on above: Order Comment: Order Date: 01/15/24 Order Info: [id number] - CMP Order Info: [id number] - LIPID Order Info: - MG Result Comment: The drugs N-Acetylcysteine and Metamizole may falsely depress this assay. Serum Triglycerides Reference Interval Normal <150 mg/dL Borderline high 150 - 199 mg/dL High 200 - 499 mg/dL Very High > or = 500 mg/dL Performed By: #### L 500.4050, L502.0250, L500.4100 #### [facility] [address] [place], [address] Magnesiumon 02-02-2024 Magnesium [Mass/Vol] 2.3 mg/dL Normal 1.6-2.6 [facility] Comment on above: Order Comment: Order Date: 01/15/24Order Info: [id number] - CMPOrder Info: [id number] - LIPIDOrder Info: - MG Performed By: #### L 501.5200 ####[facility] [address] [place], [address] Microalb:Creat Ratio,Random URon 02-02-2024 Creatinine [Mass/Vol] 72.80 mg/dL Normal NO RAN GE EST. [facility] Comment on above: Order Comment: Order Date: 01/15/24 Order Info: [id number] - MIACRE Performed By: #### L 500.4050, L502.0250, L500.4100 #### [facility] [address] [place], [address] MALB:CRE 8.0 mg/g CRE Normal <30 mg/g CRE [facility] Comment on above: Order Comment: Order Date: 01/15/24 Order Info: [id number] - MIACRE Performed By: #### L 500.4050, L502.0250, L500.4100 #### [facility] [address] [place], [address] MICROALBUMIN,UR 5.8 mg/L Normal NO RANGE EST. [facility] Comment on above: Order Comment: Order Date: 01/15/24 Order Info: [id number] - MIACRE Performed By: #### L 500.4050, L502.0250, L500.4100 #### [facility] [address] [place], [place], [id number] PT D/C Summary (1)on 024 PT D/C Summary (1) [facility] [place] [address] / REHABILITATION SERVICES DISCHARGE SUMMARY MR#: [id number] Acct: [id number] Name: KALEIGH BLACK Rep #: [id number] : 1985 38 From: [place] DPT Referring Dr.: Dr. Paul Pope MD Status: REG R CR Insurance: [employer]URANCE Discharge Summary D/C summary: It has been my pleasure to treat KALEIGH BLACK referred by Dr. Paul Pope MD, with the diagnosis of thoracolumbar DDD/DJD for a total of 5 visit(s). Discharge Date: 10/26/23 Please see the following information for a summary of their discharge status. Subjective Subjective: Pt reports he feels about the same. Reports he has been completing his HEP regularly. Pain Lower thoracic spine: Pain Intensity (Out of 10): 3 Overall Improvement % Improvement: 10 Objective Objective/Function: Added strengthening exercises today without c/o increased pain. Pt reports PA mobs feel good. Goals Goal 1:: LTG: Pt. to be I with HEP. Goal Progress: Goal Met Goal 2:: STG: pt. to sleep throughout the night without increase in symptoms. Goal Progress: Progressing Goal 3:: LTG: Pt. to have full thoracic and lumbar spine ROM without increase in R sided back pain. Goal Progress: Not Progressing Goal 4:: LTG: Pt. to have increased core and thoracic musculature strength increased to 5/5 throughout. Goal Progress: Progressing Goal 5:: LTG: Pt. to complete all work duties without increase in thoracic spine pain. Goal Progress: Not Progressing Plan Plan: Start with thoracic extension stretching seated, add in manual joint mobs as tolerated. Progress to thoracic rotation stretching in quadruped. Once symptoms have improved add in thoracic/lumbar/postural strengthening. D/C Information Discharge Comments: Pt. reports not much change with PT. Pt. continues to be stiff with his thoracic spine. We have tried ROM, stretching, manual therapy. He has not had much relief with PT. I am DCing him from PT and he is to follow up with physician. d/c sentence: If there are questions or concerns regarding this patient's physical therapy, please feel free to call me at [phone]. Thank you for the referral of this patient. Sincerely, [place], DPT Balance/Gait/Functional tests Balance/Special Test Scores Oswestry Low Back Score: 11 Improvement % Improvement: 10 10/30/23 1231 CC: Dr. Paul Pope MD CLS Signed Normal [facility] Absolute lymphocyte countOrd ered By: Benedict Canales on 08-31-2023 Lymphocytes Auto (Unsp spec) [#/Vol] 1.79 10*3/uL 0.83-4.51 [facility] Basophil percentageOrdered B y: Benedict Canales on 08-31-2023 Basophils/100 WBC (Bld) 0.8 % 0-1 [facility] Bilirubin [Mass/Vol] 0.60 mg/dL 0.20-1.00 [facility] Comment on above: For patients on eltr ombopag therapy, use of Dimension [place] TBIL is not recommended. Chloride [Moles/Vol] 104 mmol/L 98-107 [facility] Eosinophils/100 WBC (Bld) 1.1 % 0-5 [facility] Glucose [Mass/Vol] 101 mg/dL 74-106 [facility] Comment on above: Fasting Glucose resu lt from 100 to 125 mg/dL suggests IMPAIRED HOMEOSTASIS per A.D.A. criteria. Neutrophils (Bld) [#/Vol] 5.7 10*3/uL 2.0-7.7 [facility] Neutrophils/100 WBC (Bld) 68.4 % 47-70 [facility] Potassium [Moles/Vol] 3.8 mmol/L 3.5-5.1 [facility] Protein [Mass/Vol] 8.0 g/dL 6.4-8.2 [facility] Sodium [Moles/Vol] 138 mmol/L 136-145 [facility] WBC (Bld) [#/Vol] 8.4 10*3/uL 4.4-11.0 [facility] Blood erythrocytes count (nu mber/volume)Ordered By: Benedict Canales on 08-31-2023 RBC (Bld) [#/Vol] 5.63 10*6/uL 4.6-6.2 [facility] Blood hemoglobin measurement (mass/volume)Ordered By: Benedict Canales on 08-31-2023 Hemoglobin (Bld) [Mass/Vol] 16.2 g/dL 13.0-16.5 [facility] Blood lymphocytes/100 leukoc ytesOrdered By: Benedict Canales on 08-31-2023 Lymphocytes/100 WBC (Bld) 21.4 % 19-41 [facility] Blood monocytes/100 leukocyt esOrdered By: Benedict Canales on 08-31-2023 Monocytes/100 WBC (Bld) 7.9 % 0-10 [facility] Blood platelet mean volumeOr dered By: Benedict Canales on 08-31-2023 Platelet mean volume (Bld) [Entitic vol] 9.7 fL 6.2-12.0 [facility] Determination of erythrocyte mean corpuscular volume (MCV)Ordered By: Benedict Canales on 08-31-2023 MCV (RBC) [Entitic vol] 87.7 fL 80-94 [facility] Erythrocyte sedimentation ra teOrdered By: Benedict Canales on 08-31-2023 ESR (Bld) [Velocity] 14 mm/h 0-20 [facility] Hematocrit Auto (Bld) [Volum e fraction]Ordered By: Benedict Canales on 08-31-2023 Hematocrit (Bld) [Volume fraction] 49.4 % 40-54 [facility] - Chemistry and C hemistry - challengeOrdered By: Benedict Canales on 08-31-2023 ALP [Catalytic activity/Vol] 73 U/L 45-117 [facility] ALT [Catalytic activity/Vol] 29 U/L 16-61 [facility] CO2 [Moles/Vol] 27.0 mmol/L 21.0-32.0 [facility] Globulin (S) [Mass/Vol] 3.9 g/dL 2.2-4.2 [facility] Urea nitrogen/Creatinine [Mass ratio] 11.1 mg/mg 10-20 [facility] - Hematology and Cell countsOrdered By: Benedict Canales on 08-31-2023 Erythrocyte distribution width (RBC) [Entitic vol] 40.0 fL 35.1-43.9 [facility] Erythrocyte distribution width (RBC) [Ratio] 12.5 % 11.6-14.6 [facility] Immature granulocytes/100 WBC (Bld) 0.400 % 0.0-0.9 [facility] Comment on above: IG% - Immature Granu locytes (promyelocytes, myelocytes and metamyelocytes) > 1% indicates that a LEFT SHIFT is Present. MCH (RBC) [Entitic mass] 28.8 pg 27.0-32.0 [facility] Nucleated RBC/100 WBC (Bld) [Ratio] 0 % 0-5 [facility] MCHC Auto (RBC) [Mass/Vol]Or dered By: Benedict Canales on 08-31-2023 MCHC (RBC) [Mass/Vol] 32.8 g/dL 32-36 [facility] No Panel InformationOrdered By: Benedict Canales on 08-31-2023 Estimated GFR (MDRD) Amer 121 mL/min >60 [facility] Comment on above: GFR Calc Estimated GFR (MDRD) Non-Af Amer 100 mL/min >60 [facility] Comment on above: Non- GFR Calc Platelets bldOrdered By: Abhi Canales on 08-31-2023 Platelets (Bld) [#/Vol] 349 10*3/uL 150-450 [facility] Serum or plasma C reactive p rotein measurement (mass/volume)Ordered By: Benedict Canales on 08-31-2023 CRP [Mass/Vol] mg/L 0.0-3.0 [facility] Comment on above: C-Reactive Protein ( CRP) provides useful information for thediagnosis, therapy and monitoring of inflammatory processesand associated diseases. For the evaluation of Relative Riskfor Cardiovascular Disease, a High Sensitivity CRP (HSCRP)should be ordered. Serum or plasma albumin hortencia urement (mass/volume)Ordered By: Benedict Canales on 08-31-2023 Albumin [Mass/Vol] 4.1 g/dL 3.2-5.0 [facility] Serum or plasma albumin/glob ulin mass ratioOrdered By: Benedict Canales on 08-31-2023 Albumin/Globulin [Mass ratio] 1.1 {ratio} 0.9-2.4 [facility] Serum or plasma calcium hortencia urement (mass/volume)Ordered By: Benedict Canales on 08-31-2023 Calcium [Mass/Vol] 9.3 mg/dL 8.5-10.1 [facility] Serum or plasma creatinine m easurement (mass/volume)Ordered By: Benedict Canales on 08-31-2023 Creatinine [Mass/Vol] 0.90 mg/dL 0.70-1.30 [facility] Comment on above: The validity of the calculated GFR & GFRAA in patients over 70 years has not been determined. Clinical correlation is essential. Serum or plasma urea nitroge n measurement (mass/volume)Ordered By: Benedict Canales on 08-31-2023 Urea nitrogen [Mass/Vol] 10 mg/dL 7-18 [facility] Thin prep Papanicolaou smear with manual screeningOrdered By: Benedict Canales on 08-31-2023 Thin prep Papanicolaou smear with manual screening 22 U/L 15-37 [facility] Thin prep Papanicolaou smear with manual screening 7 5-15 [facility] Stool lactoferrin detection by immunoassayOrdered By: Na Vasques on 01-06-2023 Lactoferrin IA Ql (Stl) [facility] Absolute lymphocyte countOrd ered By: Na Vasques on 12-27-2022 Lymphocytes Auto (Unsp spec) [#/Vol] 1.58 10*3/uL 0.83-4.51 [facility] Basophil percentageOrdered B y: Na Vasques on 12-27-2022 Basophils/100 WBC (Bld) 0.6 % 0-1 [facility] Bilirubin [Mass/Vol] 0.50 mg/dL 0.20-1.00 [facility] Comment on above: For patients on eltr ombopag therapy, use of Dimension [place] TBIL is not recommended. Chloride [Moles/Vol] 105 mmol/L 98-107 [facility] Eosinophils/100 WBC (Bld) 1.0 % 0-5 [facility] Glucose [Mass/Vol] 157 mg/dL 74-106 [facility] Comment on above: Fasting Glucose resu lt greater than or equal to 126 mg/dL suggests DIABETES MELLITUS per A.D.A. criteria. Neutrophils (Bld) [#/Vol] 5.8 10*3/uL 2.0-7.7 [facility] Neutrophils/100 WBC (Bld) 73.6 % 47-70 [facility] Potassium [Moles/Vol] 3.7 mmol/L 3.5-5.1 [facility] Protein [Mass/Vol] 7.7 g/dL 6.4-8.2 [facility] Sodium [Moles/Vol] 138 mmol/L 136-145 [facility] WBC (Bld) [#/Vol] 7.9 10*3/uL 4.4-11.0 [facility] Blood erythrocytes count (nu mber/volume)Ordered By: Na Vasques on 12-27-2022 RBC (Bld) [#/Vol] 5.24 10*6/uL 4.6-6.2 [facility] Blood hemoglobin measurement (mass/volume)Ordered By: Na Vasques on 12-27-2022 Hemoglobin (Bld) [Mass/Vol] 15.5 g/dL 13.0-16.5 [facility] Blood lymphocytes/100 leukoc ytesOrdered By: Na Vasques on 12-27-2022 Lymphocytes/100 WBC (Bld) 20.1 % 19-41 [facility] Blood monocytes/100 leukocyt esOrdered By: Na Vasques on 12-27-2022 Monocytes/100 WBC (Bld) 4.6 % 0-10 [facility] Blood platelet mean volumeOr dered By: Na Vasques on 12-27-2022 Platelet mean volume (Bld) [Entitic vol] 9.8 fL 6.2-12.0 [facility] Determination of erythrocyte mean corpuscular volume (MCV)Ordered By: Na Vasques on 12-27-2022 MCV (RBC) [Entitic vol] 88.7 fL 80-94 [facility] Erythrocyte sedimentation ra teOrdered By: Na Vasques on 12-27-2022 ESR (Bld) [Velocity] 19 mm/h 0-20 [facility] Hematocrit Auto (Bld) [Volum e fraction]Ordered By: Na Vasques on 12-27-2022 Hematocrit (Bld) [Volume fraction] 46.5 % 40-54 [facility] - Chemistry and C hemistry - challengeOrdered By: Na Vasques on 12-27-2022 ALP [Catalytic activity/Vol] 83 U/L 45-117 [facility] ALT [Catalytic activity/Vol] 30 U/L 16-61 [facility] CO2 [Moles/Vol] 26.0 mmol/L 21.0-32.0 [facility] Globulin (S) [Mass/Vol] 3.7 g/dL 2.2-4.2 [facility] Urea nitrogen/Creatinine [Mass ratio] 12.9 mg/mg 10-20 [facility] - Hematology and Cell countsOrdered By: Na Vasques on 12-27-2022 Erythrocyte distribution width (RBC) [Entitic vol] 39.7 fL 35.1-43.9 [facility] Erythrocyte distribution width (RBC) [Ratio] 12.2 % 11.6-14.6 [facility] Immature granulocytes/100 WBC (Bld) 0.100 % 0.0-0.9 [facility] Comment on above: IG% - Immature Granu locytes (promyelocytes, myelocytes and metamyelocytes) > 1% indicates that a LEFT SHIFT is Present. MCH (RBC) [Entitic mass] 29.6 pg 27.0-32.0 [facility] Nucleated RBC/100 WBC (Bld) [Ratio] 0 % 0-5 [facility] MCHC Auto (RBC) [Mass/Vol]Or dered By: Na Vasques on 12-27-2022 MCHC (RBC) [Mass/Vol] 33.3 g/dL 32-36 [facility] No Panel InformationOrdered By: Na Vasques on 12-27-2022 Miscellaneous Test See comment [facility] Comment on above: TEST RESULT LIMITSTh iopurine Methyltransferase TPMT Activity 31.2 Units/mL RBC Reference Range: Normal: 15.1 - 26.4 Heterozygous for low TPMT variant: 6.3 - 15.0 Homozygous for low TPMT variant: <6.3 Interpretation: The above results can be interpreted as Normal for red blood cell Thiopurine Methyltransferase activity. For patients having an intrinsic low level of TPMT, recent RBC transfusion can variably increase their assayed enzymatic activity depending on the amount and circulating half-life of the transfused red blood cells. This test was developed and its performance characteristics determined by [facility]. It has not been cleared or approved by the Food and Drug Administration. This case has been reviewed, approved, interpreted and electronically signed by Rob Cloud, PhD, [facility]. Methodology Enzymatic Endpoint/Liquid Chromatography - Tandem Mass Spectrometry (LC-MS/MS) ___ TESTING PERFORMED AT [facility]. ORIGINAL REPORT ON FILE IN LAB CONTAINS ADDITIONAL TEST SITE INFORMATION. Estimated GFR (MDRD) Amer 106 mL/min >60 [facility] Comment on above: GFR Calc Estimated GFR (MDRD) Non-Af Amer 88 mL/min >60 [facility] Comment on above: Non- GFR Calc Platelets bldOrdered By: Danielle Vasques on 12-27-2022 Platelets (Bld) [#/Vol] 360 10*3/uL 150-450 [facility] Qualitative QuantiFERON-TB g old in tube testOrdered By: Na Vasques on 12-27-2022 M. tuberculosis tuberculin stim IFN-g Ql (Bld) 0 IU/mL . [facility] Serum or plasma C reactive p rotein measurement (mass/volume)Ordered By: Na Vasques on 12-27-2022 CRP [Mass/Vol] mg/L 0.0-3.0 [facility] Comment on above: C-Reactive Protein ( CRP) provides useful information for thediagnosis, therapy and monitoring of inflammatory processesand associated diseases. For the evaluation of Relative Riskfor Cardiovascular Disease, a High Sensitivity CRP (HSCRP)should be ordered. Serum or plasma albumin hortencia urement (mass/volume)Ordered By: Na Vasques on 12-27-2022 Albumin [Mass/Vol] 4.0 g/dL 3.2-5.0 [facility] Serum or plasma albumin/glob ulin mass ratioOrdered By: Na Vasques on 12-27-2022 Albumin/Globulin [Mass ratio] 1.1 {ratio} 0.9-2.4 [facility] Serum or plasma calcium hortencia urement (mass/volume)Ordered By: Na Vasques on 12-27-2022 Calcium [Mass/Vol] 9.4 mg/dL 8.5-10.1 [facility] Serum or plasma creatinine m easurement (mass/volume)Ordered By: Na Vasques on 12-27-2022 Creatinine [Mass/Vol] 1.01 mg/dL 0.70-1.30 [facility] Comment on above: The validity of the calculated GFR & GFRAA in patients over 70 years has not been determined. Clinical correlation is essential. Serum or plasma urea nitroge n measurement (mass/volume)Ordered By: Na Vasques on 12-27-2022 Urea nitrogen [Mass/Vol] 13 mg/dL 7-18 [facility] Thin prep Papanicolaou smear with manual screeningOrdered By: Na Vasques on 12-27-2022 Thin prep Papanicolaou smear with manual screening 16 U/L 15-37 [facility] Thin prep Papanicolaou smear with manual screening 7 5-15 [facility] Thin prep Papanicolaou smear with manual screening Comment . [facility] Comment on above: QuantiFERON-TB Gold Plus is a qualitative indirect test forM tuberculosis infection (including disease) and isintended for use in conjunction with risk assessment,radiography, and other medical and diagnostic evaluations.The QuantiFERON-TB Gold Plus result is determined bysubtracting the Nil value from either TB antigen (Ag)value. The Mitogen tube serves as a control for the test. Thin prep Papanicolaou smear with manual screening 0 IU/mL . [facility] Thin prep Papanicolaou smear with manual screening > 10.00 IU/mL . [facility] Thin prep Papanicolaou smear with manual screening Negative Negative [facility] Comment on above: No response to M tub erculosis antigens detected.Infection with M tuberculosis is unlikely, but high riskindividuals should be considered for additional testing(ATS/IDSA/CDC Clinical Practice Guidelines, 2017). [facility]ference range is an Antigen minus Nil result of <0.35IU/mL.The specimen received for QuantiFERON testing was incubatedby the ordering institution. Specific procedures outlinedin our Directory of Services and in the package insert forthe QuantiFERON Gold (In Tube) test must be followed toenable for proper stimulation of cells for the productionof interferon gamma. Chemiluminescence immunoassaymethodologyPerformed at: [id number] [id number] Director: Nael Hargrove PhD, Phone: [phone] Absolute lymphocyte countOrd ered By: Dr. Pope on 10-18-2022 Lymphocytes Auto (Unsp spec) [#/Vol] 1.96 10*3/uL 0.83-4.51 [facility] Basophil percentageOrdered B y: Dr. Pope on 10-18-2022 Basophil percentage 0 SEEN /hpf 0-5 [facility] Basophils/100 WBC (Bld) 0.9 % 0-1 [facility] Bilirubin [Mass/Vol] 0.50 mg/dL 0.20-1.00 [facility] Comment on above: For patients on eltr ombopag therapy, use of Dimension [place] TBIL is not recommended. Chloride [Moles/Vol] 103 mmol/L 98-107 [facility] Cholesterol [Mass/Vol] 170 mg/dL <200 [facility] Comment on above: <200 mg/dL Desirable 200-240 mg/dL Borderline >240 mg/dL High Risk Eosinophils/100 WBC (Bld) 1.5 % 0-5 [facility] Glucose [Mass/Vol] 92 mg/dL 74-106 [facility] Neutrophils (Bld) [#/Vol] 5.2 10*3/uL 2.0-7.7 [facility] Neutrophils/100 WBC (Bld) 64.8 % 47-70 [facility] Potassium [Moles/Vol] 4.4 mmol/L 3.5-5.1 [facility] Protein [Mass/Vol] 8.0 g/dL 6.4-8.2 [facility] Sodium [Moles/Vol] 139 mmol/L 136-145 [facility] Triglyceride [Mass/Vol] 189 mg/dL <199 [facility] Comment on above: The drugs N-Acetylcy steine and Metamizole may falsely depress this assay.Serum Triglycerides Reference Interval Normal <150 mg/dL Borderline high 150 - 199 mg/dL High 200 - 499 mg/dL Very High > or = 500 mg/dL WBC (Bld) [#/Vol] 8.0 10*3/uL 4.4-11.0 [facility] Bilirubin Test strip Ql (U)O rdered By: Dr. Pope on 10-18-2022 Bilirubin Ql (U) Negative Negative [facility] Blood erythrocytes count (nu mber/volume)Ordered By: Dr. Pope on 10-18-2022 RBC (Bld) [#/Vol] 5.21 10*6/uL 4.6-6.2 [facility] Blood hemoglobin measurement (mass/volume)Ordered By: Dr. Pope on 10-18-2022 Hemoglobin (Bld) [Mass/Vol] 15.2 g/dL 13.0-16.5 [facility] Blood lymphocytes/100 leukoc ytesOrdered By: Dr. Pope on 10-18-2022 Lymphocytes/100 WBC (Bld) 24.5 % 19-41 [facility] Blood monocytes/100 leukocyt esOrdered By: Dr. Pope on 10-18-2022 Monocytes/100 WBC (Bld) 8.1 % 0-10 [facility] Blood platelet mean volumeOr dered By: Dr. Pope on 10-18-2022 Platelet mean volume (Bld) [Entitic vol] 10.2 fL 6.2-12.0 [facility] Determination of erythrocyte mean corpuscular volume (MCV)Ordered By: Dr. Pope on 10-18-2022 MCV (RBC) [Entitic vol] 89.6 fL 80-94 [facility] Hematocrit Auto (Bld) [Volum e fraction]Ordered By: Dr. Pope on 10-18-2022 Hematocrit (Bld) [Volume fraction] 46.7 % 40-54 [facility] Ketones Test strip Ql (U)Ord ered By: Dr. Pope on 10-18-2022 Ketones Ql (U) Negative Negative [facility] - Chemistry and C hemistry - challengeOrdered By: Dr. Pope on 10-18-2022 ALP [Catalytic activity/Vol] 75 U/L 45-117 [facility] ALT [Catalytic activity/Vol] 28 U/L 16-61 [facility] CO2 [Moles/Vol] 25.0 mmol/L 21.0-32.0 [facility] Globulin (S) [Mass/Vol] 3.4 g/dL 2.2-4.2 [facility] Urea nitrogen/Creatinine [Mass ratio] 15.7 mg/mg 10-20 [facility] - Hematology and Cell countsOrdered By: Dr. Pope on 10-18-2022 Erythrocyte distribution width (RBC) [Entitic vol] 39.1 fL 35.1-43.9 [facility] Erythrocyte distribution width (RBC) [Ratio] 11.9 % 11.6-14.6 [facility] Immature granulocytes/100 WBC (Bld) 0.200 % 0.0-0.9 [facility] Comment on above: IG% - Immature Granu locytes (promyelocytes, myelocytes and metamyelocytes) > 1% indicates that a LEFT SHIFT is Present. MCH (RBC) [Entitic mass] 29.2 pg 27.0-32.0 [facility] Nucleated RBC/100 WBC (Bld) [Ratio] 0 % 0-5 [facility] [Mass/Vol]Or dered By: Dr. Pope on 10-18-2022 MCHC (RBC) [Mass/Vol] 32.5 g/dL 32-36 [facility] Mucus LM Ql (Urine sed)Order ed By: Dr. Pope on 10-18-2022 Mucus Ql (Urine sed) 0 SEEN /hpf [facility] Nitrite Test strip Ql (U)Ord ered By: Dr. Pope on 10-18-2022 Nitrite Ql (U) Negative Negative [facility] No Panel InformationOrdered By: Dr. Pope on 10-18-2022 Estimated GFR (MDRD) Amer 114 mL/min >60 [facility] Comment on above: GFR Calc Estimated GFR (MDRD) Non-Af Amer 94 mL/min >60 [facility] Comment on above: Non- GFR Calc Platelets bldOrdered By: Dr. Pope on 10-18-2022 Platelets (Bld) [#/Vol] 403 10*3/uL 150-450 [facility] Protein Test strip Ql (U)Ord ered By: Dr. Pope on 10-18-2022 Protein Ql (U) Negative Negative [facility] Serum or plasma albumin hortencia urement (mass/volume)Ordered By: Dr. Pope on 10-18-2022 Albumin [Mass/Vol] 4.6 g/dL 3.2-5.0 [facility] Serum or plasma albumin/glob ulin mass ratioOrdered By: Dr. Pope on 10-18-2022 Albumin/Globulin [Mass ratio] 1.4 {ratio} 0.9-2.4 [facility] Serum or plasma calcium hortencia urement (mass/volume)Ordered By: Dr. Pope on 10-18-2022 Calcium [Mass/Vol] 9.7 mg/dL 8.5-10.1 [facility] Serum or plasma cholesterol in HDL measurement (mass/volume)Ordered By: Dr. Pope on 10-18-2022 Cholesterol in HDL [Mass/Vol] 34 mg/dL >40 [facility] Comment on above: The drugs N-Acetylcy steine and Metamizole may falsely depress this assay. Reference Range HDL <40 mg/dL Low HDL Cholesterol HDL >or= 60 mg/dL High HDL Cholesterol Serum or plasma cholesterol in VLDL measurement (mass/volume)Ordered By: Dr. Pope on 10-18-2022 Cholesterol in VLDL [Mass/Vol] 38 mg/dL 5-40 [facility] Serum or plasma creatinine m easurement (mass/volume)Ordered By: Dr. Pope on 10-18-2022 Creatinine [Mass/Vol] 0.96 mg/dL 0.70-1.30 [facility] Comment on above: The validity of the calculated GFR & GFRAA in patients over 70 years has not been determined. Clinical correlation is essential. Serum or plasma low density lipoprotein (LDL) cholesterol measurement (mass/volume)Ordered By: Dr. Pope on 10-18-2022 Cholesterol in LDL [Mass/Vol] 98 mg/dL 0-130 [facility] Serum or plasma urea nitroge n measurement (mass/volume)Ordered By: Dr. Pope on 10-18-2022 Urea nitrogen [Mass/Vol] 15 mg/dL 7-18 [facility] Squamous epithelial cells de tection in urine sediment by light microscopyOrdered By: Dr. Pope on 10-18-2022 Epithelial cells.squamous LM Ql (Urine sed) 0 SEEN /hpf 0-5 [facility] Thin prep Papanicolaou smear with manual screeningOrdered By: Dr. Pope on 10-18-2022 Thin prep Papanicolaou smear with manual screening 16 U/L 15-37 [facility] Thin prep Papanicolaou smear with manual screening 11 5-15 [facility] Urine blood detectionOrdered By: Dr. Pope on 10-18-2022 RBC Ql (U) Negative Negative [facility] RBC Ql (U) 0 SEEN /hpf 0-5 [facility] Urine clarityOrdered By: Dr. Pope on 10-18-2022 Clarity (U) Clear Clear [facility] Urine color determinationOrd ered By: Dr. Pope on 10-18-2022 Color (U) Yellow Yellow [facility] Urine glucose detectionOrder ed By: Dr. Pope on 10-18-2022 Glucose Ql (U) Normal mg/dl Normal [facility] Urine leukocyte esterase det ection by dipstickOrdered By: Dr. Pope on 10-18-2022 Leukocyte esterase Test strip Ql (U) Negative Negative [facility] Urine pHOrdered By: Dr. Qamar hollis on 10-18-2022 pH (U) 7.0 [pH] 5.0 - 8.0 [facility] Urine sediment bacteria coun t by microscopy (number/high power field)Ordered By: Dr. Pope on 10-18-2022 Bacteria LM.HPF (Urine sed) [#/Area] 0 /[HPF] None Seen [facility] Urine specific gravity measu rementOrdered By: Dr. Pope on 10-18-2022 Specific gravity (U) [Rel density] 1.005 1.002-1.030 [facility] Urobilinogen Auto test strip Ql (U)Ordered By: Dr. Pope on 10-18-2022 Urobilinogen Ql (U) Normal mg/dl Normal [facility] No Panel Informationon 06-03 Stool Neutral Fats Normal . [facility] Work Phone: Comment on above: Normal (<60 Droplets /HPF) Stool Pancreatic Elastase 444 >200 [facility] Work Phone: Comment on above: Result Units: ug [address] st./g Severe Pancreatic Insufficiency: <100 Moderate Pancreatic Insufficiency: 100 - 200 Normal: >200Performed at: [facility] [id number] Director: Elmira Dyer MD, Phone: [phone] Qualitative fecal fat or lip idson 06-03-2022 Fat Ql (Stl) Normal . [facility] Work Phone: Comment on above: Normal (<100 Droplet s/HPF)Performed at: [employer] [address] [id number] Director: Nael Hargrove PhD, Phone: [phone] Basophil percentageon 2021 Amylase [Catalytic activity/Vol] 53 U/L 25-115 [facility] Work Phone: Laboratory - Chemistry and C hemistry - challengeon 05-25-2022 Lipase [Catalytic activity/Vol] 148 U/L 73-393 [facility] Work Phone: No Panel Informationon 05-25 Miscellaneous Test See comment [facility] Work Phone: Comment on above: Scanned image report available in EMR No Panel Informationon 04-26 Stool Calprotectin 311 ug/g 0-120 [facility] Work Phone: Comment on above: Concentration Interp retation Follow-Up<16 - 50 ug/g Normal None>50 -120 ug/g Borderline Re-evaluate in 4-6 weeks >120 ug/g Abnormal Repeat as clinically indicatedPerformed at: - [facility] [address] [id number] Director: Elmira Dyer MD, Phone: [phone] Absolute lymphocyte counton 04-11-2022 Lymphocytes Auto (Unsp spec) [#/Vol] 2.09 10*3/uL 0.83-4.51 [facility] Work Phone: Basophil percentageon 2021 Basophils/100 WBC (Bld) 1.2 % 0-1 [facility] Work Phone: Bilirubin [Mass/Vol] 0.40 mg/dL 0.20-1.00 [facility] Work Phone: Comment on above: For patients on eltr ombopag therapy, use of Dimension [place] TBIL is not recommended. Chloride [Moles/Vol] 105 mmol/L 98-107 [facility] Work Phone: Eosinophils/100 WBC (Bld) 1.8 % 0-5 [facility] Work Phone: Glucose [Mass/Vol] 156 mg/dL 74-106 [facility] Work Phone: Comment on above: Fasting Glucose resu lt greater than or equal to 126 mg/dL suggests DIABETES MELLITUS per A.D.A. criteria. Neutrophils (Bld) [#/Vol] 5.5 10*3/uL 2.0-7.7 [facility] Work Phone: Neutrophils/100 WBC (Bld) 65.8 % 47-70 [facility] Work Phone: [phone] Potassium [Moles/Vol] 3.8 mmol/L 3.5-5.1 [facility] Work Phone: Protein [Mass/Vol] 7.9 g/dL 6.4-8.2 [facility] Work Phone: Sodium [Moles/Vol] 137 mmol/L 136-145 [facility] Work Phone: WBC (Bld) [#/Vol] 8.3 10*3/uL 4.4-11.0 [facility] Work Phone: Blood erythrocytes count (nu mber/volume)on 04-11-2022 RBC (Bld) [#/Vol] 5.13 10*6/uL 4.6-6.2 [facility] Work Phone: [phone] Blood hemoglobin measurement (mass/volume)on 04-11-2022 Hemoglobin (Bld) [Mass/Vol] 15.2 g/dL 13.0-16.5 [facility] Work Phone: Blood lymphocytes/100 leukoc yteson 04-11-2022 Lymphocytes/100 WBC (Bld) 25.1 % 19-41 [facility] Work Phone: Blood monocytes/100 leukocyt eson 04-11-2022 Monocytes/100 WBC (Bld) 5.9 % 0-10 [facility] Work Phone: Blood platelet mean volumeon 04-11-2022 Platelet mean volume (Bld) [Entitic vol] 9.6 fL 6.2-12.0 [facility] Work Phone: [phone] Determination of erythrocyte mean corpuscular volume (MCV)on 04-11-2022 MCV (RBC) [Entitic vol] 89.1 fL 80-94 [facility] Work Phone: Erythrocyte sedimentation ra kimberly 04-11-2022 ESR (Bld) [Velocity] 20 mm/h 0-20 [facility] Work Phone: [phone] Hematocrit Auto (Bld) [Volum e fraction]on 04-11-2022 Hematocrit (Bld) [Volume fraction] 45.7 % 40-54 [facility] Work Phone: [phone] Laboratory - Chemistry and C hemistry - challengeon 04-11-2022 ALP [Catalytic activity/Vol] 76 U/L 45-117 [facility] Work Phone: ALT [Catalytic activity/Vol] 34 U/L 16-61 [facility] Work Phone: CO2 [Moles/Vol] 26.0 mmol/L 21.0-32.0 [facility] Work Phone: Cobalamin (Vitamin B12) [Mass/Vol] 737 pg/mL 211-911 [facility] Work Phone: Globulin (S) [Mass/Vol] 3.7 g/dL 2.2-4.2 [facility] Work Phone: [phone] Urea nitrogen/Creatinine [Mass ratio] 9.8 mg/mg 10-20 [facility] Work Phone: Laboratory - Hematology and Cell countson 04-11-2022 Erythrocyte distribution width (RBC) [Entitic vol] 40.4 fL 35.1-43.9 [facility] Work Phone: [phone] Erythrocyte distribution width (RBC) [Ratio] 12.4 % 11.6-14.6 [facility] Work Phone: [phone] Immature granulocytes/100 WBC (Bld) 0.200 % 0.0-0.9 [facility] Work Phone: [phone] Comment on above: IG% - Immature Granu locytes (promyelocytes, myelocytes and metamyelocytes) > 1% indicates that a LEFT SHIFT is Present. MCH (RBC) [Entitic mass] 29.6 pg 27.0-32.0 [facility] Work Phone: [phone] Nucleated RBC/100 WBC (Bld) [Ratio] 0 % 0-5 [facility] Work Phone: [phone] MCHC Auto (RBC) [Mass/Vol]on 04-11-2022 MCHC (RBC) [Mass/Vol] 33.3 g/dL 32-36 [facility] Work Phone: No Panel Informationon 04-11 Estimated GFR (MDRD) Amer 85 mL/min >60 [facility] Work Phone: Comment on above: GFR Calc Estimated GFR (MDRD) Non-Af Amer 70 mL/min >60 [facility] Work Phone: Comment on above: Non- GFR Calc Platelets bldon 04-11-2022 Platelets (Bld) [#/Vol] 354 10*3/uL 150-450 [facility] Work Phone: Serum or plasma C reactive p rotein measurement (mass/volume)on 04-11-2022 CRP [Mass/Vol] mg/L 0.0-3.0 [facility] Work Phone: Comment on above: C-Reactive Protein ( CRP) provides useful information for thediagnosis, therapy and monitoring of inflammatory processesand associated diseases. For the evaluation of Relative Riskfor Cardiovascular Disease, a High Sensitivity CRP (HSCRP)should be ordered. Serum or plasma albumin hortencia urement (mass/volume)on 04-11-2022 Albumin [Mass/Vol] 4.2 g/dL 3.2-5.0 [facility] Work Phone: Serum or plasma albumin/glob ulin mass ratioon 04-11-2022 Albumin/Globulin [Mass ratio] 1.1 {ratio} 0.9-2.4 [facility] Work Phone: Serum or plasma calcitriol m easurement (mass/volume)on 04-11-2022 1,25-dihydroxyvitamin D3 [Mass/Vol] 59.5 pg/mL 24.8-81.5 [facility] Work Phone: Comment on above: Please note refere nce interval changePerformed at: - [facility] [id number] Director: Elmira Dyer MD, Phone: [phone] Serum or plasma calcium hortencia urement (mass/volume)on 04-11-2022 Calcium [Mass/Vol] 9.7 mg/dL 8.5-10.1 [facility] Work Phone: Serum or plasma creatinine m easurement (mass/volume)on 04-11-2022 Creatinine [Mass/Vol] 1.23 mg/dL 0.70-1.30 [facility] Work Phone: Comment on above: The validity of the calculated GFR & GFRAA in patients over 70 years has not been determined. Clinical correlation is essential. Serum or plasma urea nitroge n measurement (mass/volume)on 04-11-2022 Urea nitrogen [Mass/Vol] 12 mg/dL 7-18 [facility] Work Phone: Thin prep Papanicolaou smear with manual screeningon 04-11-2022 Thin prep Papanicolaou smear with manual screening 24 U/L 15-37 [facility] Work Phone: Thin prep Papanicolaou smear with manual screening 6 5-15 [facility] Work Phone: HIV 1 and HIV-2 antibody ass ay with HIV-1 p24 antigen detectionon 11-12-2021 HIV 1+2 Ab+HIV1 p24 Ag IA Ql Non-Reactive Nonreactive [facility] Work Phone: No Panel Informationon 11-12 Bordetella pertussis IgG Antibody 1.88 index [facility] Work Phone: Comment on above: Negative <0.95 Equiv ocal 0.95 - 1.04 Positive >1.04Performed at: [employer] [address] [id number] Director: Nael Hargrove PhD, Phone: [phone] at: [facility] [id number] Director: Elmira Dyer MD, Phone: [phone] Rubella IgG Antibody Reactive Nonreactive [facility] Work Phone: Comment on above: Antibody Results Int erpretation of Immune Status Non Reactive Presumed Non-Immune Equivocal Equivocal Reactive Presumed Immune Serum Varicella zoster virus IgG antibody assay by immunoassay (units/volume)on 11-12-2021 VZV IgG IA Qn (S) 1159 index Immune >165 [facility] Work Phone: Comment on above: Negative <135 Equivo jaylen 135 - 165 Positive >165A positive result generally indicates exposure to thepathogen or administration of specific immunoglobulins,but it is not indication of active infection or stageof disease. Serum mumps virus IgM antibo dy assay (units/volume)on 11-12-2021 MuV IgM Qn (S) 3.12 AU [facility] Work Phone: Comment on above: Negative < 0.80 Bord [place] 0.80 - 1.20 Positive > 1.20Note: The presence of IgM specific antibody should beinterpreted in conjunction with the patient's clinicalhistory and exposure risk when an acute infection issuspected. Absolute lymphocyte counton 10-12-2021 Lymphocytes Auto (Unsp spec) [#/Vol] 1.82 10*3/uL 0.83-4.51 [facility] Work Phone: Basophil percentageon 2021 Basophils/100 WBC (Bld) 0.6 % 0-1 [facility] Work Phone: [phone] Bilirubin [Mass/Vol] 0.50 mg/dL 0.20-1.00 [facility] Work Phone: Comment on above: For patients on eltr ombopag therapy, use of Dimension [place] TBIL is not recommended. Chloride [Moles/Vol] 106 mmol/L 98-107 [facility] Work Phone: Eosinophils/100 WBC (Bld) 0.7 % 0-5 [facility] Work Phone: Glucose [Mass/Vol] 96 mg/dL 74-106 [facility] Work Phone: Neutrophils (Bld) [#/Vol] 5.8 10*3/uL 2.0-7.7 [facility] Work Phone: Neutrophils/100 WBC (Bld) 69.7 % 47-70 [facility] Work Phone: [phone] Potassium [Moles/Vol] 3.7 mmol/L 3.5-5.1 [facility] Work Phone: [phone] Protein [Mass/Vol] 7.6 g/dL 6.4-8.2 [facility] [facility] Work Phone: [phone] Sodium [Moles/Vol] 140 mmol/L 136-145 [facility] [facility] Work Phone: [phone] WBC (Bld) [#/Vol] 8.3 10*3/uL 4.4-11.0 [facility] Work Phone: [phone] Blood erythrocytes count (nu mber/volume)on 10-12-2021 RBC (Bld) [#/Vol] 5.47 10*6/uL 4.6-6.2 [facility] [facility] Work Phone: [phone] Blood hemoglobin measurement (mass/volume)on 10-12-2021 Hemoglobin (Bld) [Mass/Vol] 16.2 g/dL 13.0-16.5 [facility] Work Phone: Blood lymphocytes/100 leukoc yteson 10-12-2021 Lymphocytes/100 WBC (Bld) 22.0 % 19-41 [facility] Work Phone: Blood monocytes/100 leukocyt eson 10-12-2021 Monocytes/100 WBC (Bld) 6.6 % 0-10 [facility] Work Phone: [phone] Blood platelet mean volumeon 10-12-2021 Platelet mean volume (Bld) [Entitic vol] 9.8 fL 6.2-12.0 [facility] Work Phone: [phone] Determination of erythrocyte mean corpuscular volume (MCV)on 10-12-2021 MCV (RBC) [Entitic vol] 89.6 fL 80-94 [facility] Work Phone: [phone] Erythrocyte sedimentation ra kimberly 10-12-2021 ESR (Bld) [Velocity] 23 mm/h 0-20 [facility] Work Phone: [phone] Hematocrit Auto (Bld) [Volum e fraction]on 10-12-2021 Hematocrit (Bld) [Volume fraction] 49.0 % 40-54 [facility] Work Phone: Laboratory - Chemistry and C hemistry - challengeon 10-12-2021 ALP [Catalytic activity/Vol] 80 U/L 45-117 [facility] Work Phone: [phone] ALT [Catalytic activity/Vol] 33 U/L 16-61 [facility] Work Phone: [phone] CO2 [Moles/Vol] 28.0 mmol/L 21.0-32.0 [facility] Work Phone: [phone] Globulin (S) [Mass/Vol] 3.7 g/dL 2.2-4.2 [facility] Work Phone: [phone] Urea nitrogen/Creatinine [Mass ratio] 13.2 mg/mg 10-20 [facility] Work Phone: [phone] Laboratory - Hematology and Cell countson 10-12-2021 Erythrocyte distribution width (RBC) [Entitic vol] 41.0 fL 35.1-43.9 [facility] Work Phone: [phone] Erythrocyte distribution width (RBC) [Ratio] 12.5 % 11.6-14.6 [facility] Work Phone: [phone] Immature granulocytes/100 WBC (Bld) 0.400 % 0.0-0.9 [facility] Work Phone: [phone] Comment on above: IG% - Immature Granu locytes (promyelocytes, myelocytes and metamyelocytes) > 1% indicates that a LEFT SHIFT is Present. MCH (RBC) [Entitic mass] 29.6 pg 27.0-32.0 [facility] Work Phone: [phone] Nucleated RBC/100 WBC (Bld) [Ratio] 0 % 0-5 [facility] Work Phone: [phone] MCHC Auto (RBC) [Mass/Vol]on 10-12-2021 MCHC (RBC) [Mass/Vol] 33.1 g/dL 32-36 [facility]: [phone] No Panel Informationon 10-12 Miscellaneous Test See comment [facility]: Comment on above: Scanned image report available in EMR Estimated GFR (MDRD) Amer 121 mL/min >60 [facility] Work Phone: Comment on above: GFR Calc Estimated GFR (MDRD) Non-Af Amer 100 mL/min >60 [facility] Work Phone: Comment on above: Non- GFR Calc Hepatitis A IgM Antibody Negative Negative [facility] Work Phone: Hepatitis B Core IgM Antibody Negative Negative [facility] Work Phone: Hepatitis C Antibody (EIA) <0.1 s/co ratio [facility] Work Phone: Comment on above: Negative: < 0.8 Inde terminate: 0.8 - 0.9 Positive: > 0.9 The CDC recommends that a positive HCV antibody result be followed up with a HCV Nucleic Acid Amplification test (525882).Effective November 15, 2021 Hepatitis Panel (4) will be made non-orderable. [employer] offers order code [id number] Acute Hepatitis. Immunoglobulin E 60 IU/mL [facility] Work Phone: Platelets bldon 10-12-2021 Platelets (Bld) [#/Vol] 340 10*3/uL 150-450 [facility] Work Phone: Qualitative QuantiFERON-TB g old in tube teston 10-12-2021 M. tuberculosis tuberculin stim IFN-g Ql (Bld) 0.04 IU/mL [facility] Work Phone: Serum or plasma C reactive p rotein measurement (mass/volume)on 10-12-2021 CRP [Mass/Vol] mg/L 0.0-3.0 [facility] Work Phone: Comment on above: C-Reactive Protein ( CRP) provides useful information for thediagnosis, therapy and monitoring of inflammatory processesand associated diseases. For the evaluation of Relative Riskfor Cardiovascular Disease, a High Sensitivity CRP (HSCRP)should be ordered. Serum or plasma IgA measurem ent (mass/volume)on 10-12-2021 IgA [Mass/Vol] 213 mg/dL [facility] Work Phone: Serum or plasma IgG measurem ent (mass/volume)on 10-12-2021 IgG [Mass/Vol] 832 mg/dL [facility] Work Phone: Serum or plasma IgM measurem ent (mass/volume)on 10-12-2021 IgM [Mass/Vol] 94 mg/dL [facility] Work Phone: Comment on above: Performed at: [id number] [employer] [address] [id number] Director: Nael Hargrove PhD, Phone: [phone] at: - [facility] [id number] Director: Elmira Dyer MD, Phone: [phone] Serum or plasma albumin hortencia urement (mass/volume)on 10-12-2021 Albumin [Mass/Vol] 3.9 g/dL 3.2-5.0 [facility] Work Phone: Serum or plasma albumin/glob ulin mass ratioon 10-12-2021 Albumin/Globulin [Mass ratio] 1.1 {ratio} 0.9-2.4 [facility] Work Phone: Serum or plasma calcium hortencia urement (mass/volume)on 10-12-2021 Calcium [Mass/Vol] 9.3 mg/dL 8.5-10.1 [facility] Work Phone: Serum or plasma creatinine m easurement (mass/volume)on 10-12-2021 Creatinine [Mass/Vol] 0.91 mg/dL 0.70-1.30 [facility] Work Phone: Comment on above: The validity of the calculated GFR & GFRAA in patients over 70 years has not been determined. Clinical correlation is essential. Serum or plasma hepatitis B virus surface antigen detection by immunoassayon 10-12-2021 HBV surface Ag IA Ql Negative Negative [facility] Work Phone: Serum or plasma urea nitroge n measurement (mass/volume)on 10-12-2021 Urea nitrogen [Mass/Vol] 12 mg/dL 7-18 [facility] Work Phone: Thin prep Papanicolaou smear with manual screeningon 10-12-2021 Thin prep Papanicolaou smear with manual screening 16 U/L 15-37 [facility] Work Phone: Thin prep Papanicolaou smear with manual screening 6 5-15 [facility] Work Phone: Thin prep Papanicolaou smear with manual screening 188 U/L 87-241 [facility] Work Phone: Thin prep Papanicolaou smear with manual screening Comment [facility] Work Phone: Comment on above: The QuantiFERON-TB G old Plus result is determined bysubtracting the Nil value from either TB antigen (Ag) tube.The mitogen tube serves as a control for the test. Thin prep Papanicolaou smear with manual screening 0.02 IU/mL [facility] Work Phone: Thin prep Papanicolaou smear with manual screening > 10.00 IU/mL [facility] Work Phone: Thin prep Papanicolaou smear with manual screening Negative Negative [facility] Work Phone: Comment on above: The specimen receive d for QuantiFERON testing was incubatedby the ordering institution. Specific procedures outlinedin our Directory of Services and in the package insert forthe QuantiFERON Gold (In Tube) test must be followed toenable for proper stimulation of cells for the productionof interferon gamma. Chemiluminescence immunoassaymethodology Basophil percentageon 2021 Creatinine [Mass/Vol] 0.9 mg/dL 0.70-1.30 [facility] Work Phone: No Panel Informationon 09-24 Bedside Estimated GFR (eGFR) > 60.0000 mL/min >60 [facility] Work Phone: Vital Signs Date Time Vital Sign Value Performing Clinician Faci lity 07-25-2022 08:31-0500 Body height 185.[address] Paul Pope Work Phone: [facility] 07-25-2022 08:31-0500 Body mass index (BMI) [Ratio] 40.7 kg/m2 Dr. Paul Pope Work Phone: [facility] 07-25-2022 08:31-0500 Body weight 140.[address] Paul Pope Work Phone: [facility] 07-25-2022 08:31-0500 Diastolic blood pressure 93 mm[Hg] Dr. Paul Pope Work Phone: [facility] 07-25-2022 08:31-0500 Heart rate 92 /min Dr. Paul Pope Work Phone: [facility] 07-25-2022 08:31-0500 SaO2% (BldA) [Mass fraction] 97 % Dr. Paul Pope Work Phone: [facility] 07-25-2022 08:31-0500 Systolic blood pressure 144 mm[Hg] Dr. Paul Pope Work Phone: [facility] 05-25-2022 08:59-0400 Body height 185.[address] Paul Pope Work Phone: [facility] Work Phone: 05-25-2022 08:59-0400 Body mass index (BMI) [Ratio] 39.5 kg/m2 Dr. Paul Pope Work Phone: [facility] Work Phone: 05-25-2022 08:59-0400 Body weight 136.[address] Paul Pope Work Phone: [facility] Work Phone: 05-25-2022 08:59-0400 Diastolic blood pressure 93 mm[Hg] Dr. Paul Pope Work Phone: [facility] Work Phone: 05-25-2022 08:59-0400 Heart rate 79 /min Dr. Paul Pope Work Phone: [facility] Work Phone: 05-25-2022 08:59-0400 SaO2% (BldA) [Mass fraction] 98 % Dr. Paul Pope Work Phone: [facility] Work Phone: 05-25-2022 08:59-0400 Systolic blood pressure 158 mm[Hg] Dr. Paul Pope Work Phone: [facility] Work Phone: 02-25-2022 15:27-0400 Body weight 133.[address] Paul Pope Work Phone: [facility] Work Phone: 12-09-2021 08:31-0400 Body temperature 97.9 [degF] Dr. Paul Pope Work Phone: [facility] Work Phone: 12-09-2021 08:31-0400 Diastolic blood pressure 66 mm[Hg] Dr. Paul Pope Work Phone: [facility] Work Phone: 12-09-2021 08:31-0400 Heart rate 56 /min Dr. Paul Pope Work Phone: [facility] Work Phone: 12-09-2021 08:31-0400 Respiratory rate 16 /min Dr. Paul Pope Work Phone: [facility] Work Phone: 12-09-2021 08:31-0400 SaO2% (BldA) [Mass fraction] 98 % Dr. Paul Pope Work Phone: [facility] Work Phone: 12-09-2021 08:31-0400 Systolic blood pressure 102 mm[Hg] Dr. Paul Pope Work Phone: [facility] Work Phone: 12-09-2021 06:34-0400 Body height 185.[address] Paul Pope Work Phone: [facility] Work Phone: 12-09-2021 06:34-0400 Body mass index (BMI) [Ratio] 36.9 kg/m2 Dr. Paul Pope Work Phone: [facility] Work Phone: 12-09-2021 06:34-0400 Body weight [address] Paul Pope Work Phone: [facility] Work Phone: 12-06-2021 16:08-0400 Body temperature 96.9 [degF] Dr. Paul Pope Work Phone: [facility] Work Phone: 12-06-2021 16:08-0400 Diastolic blood pressure 88 mm[Hg] Dr. Paul Pope Work Phone: [facility] Work Phone: 12-06-2021 16:08-0400 Heart rate 66 /min Dr. Paul Pope Work Phone: [facility] Work Phone: 12-06-2021 16:08-0400 Respiratory rate 16 /min Dr. Paul Pope Work Phone: [facility] Work Phone: 12-06-2021 16:08-0400 SaO2% (BldA) [Mass fraction] 100 % Dr. Paul Pope Work Phone: [facility] Work Phone: 12-06-2021 16:08-0400 Systolic blood pressure 144 mm[Hg] Dr. Paul Pope Work Phone: [facility] Work Phone: 10-12-2021 07:08-0500 Body mass index (BMI) [Ratio] 38.2 kg/m2 Dr. Paul Pope Work Phone: [facility] Work Phone: 10-12-2021 07:08-0500 Body weight 131.[address] Paul Pope Work Phone: [facility] Work Phone: 10-12-2021 07:08-0500 Diastolic blood pressure 84 mm[Hg] Dr. Paul Pope Work Phone: [facility] Work Phone: 10-12-2021 07:08-0500 Heart rate 79 /min Dr. Paul Pope Work Phone: [facility] Work Phone: 10-12-2021 07:08-0500 Respiratory rate 18 /min Dr. Paul Pope Work Phone: [facility] Work Phone: 10-12-2021 07:08-0500 Systolic blood pressure 153 mm[Hg] Dr. Paul Pope Work Phone: [facility] Work Phone: Encounters Encounter Date Encounter Type Care Provider Facility Start: 08-19-2024 End: 08-19-2024 ambulatory Paul Pope Facility:[facility] Start: 08-05-2024 End: 08-05-2024 ambulatory Paul Pope Facility:[facility] Start: 07-23-2024 End: 07-23-2024 ambulatory Paul Pope Facility:[facility] Start: 02-02-2024 End: 02-02-2024 ambulatory Paul Pope Facility:[facility] Start: 02-02-2024 End: 02-02-2024 ambulatory Paul Pope Facility:[facility] Start: 10-26-2023 End: 10-26-2023 ambulatory Paul Pope Facility:[facility] Start: 08-31-2023 End: 08-31-[address] Paul Pope Work Phone: [facility] Work Phone: Start: 08-31-2023 End: 08-31-[address] Paul Pope Work Phone: [facility] Work Phone: Start: 01-06-2023 End: 01-06-[address] Paul Pope Work Phone: [facility] Work Phone: Start: 01-06-2023 End: 01-06-[address] [facility] Start: 12-27-2022 End: 12-27-[address] Paul Pope Work Phone: [facility] Work Phone: Start: 12-27-2022 End: 12-27-[address] [facility] Start: 12-22-2022 End: 12-22-[address] Paul Ppoe Work Phone: [facility] Start: 10-25-2022 End: 10-25-[address] Paul Pope Work Phone: [facility] Work Phone: Start: 10-25-2022 End: 10-25-[address] Paul Pope Work Phone: [facility] Start: 10-18-2022 End: 10-18-[address] Paul Pope Work Phone: [facility] Work Phone: Start: 10-18-2022 End: 10-18-[address] Paul Pope Work Phone: [facility] Start: 08-23-2022 End: 08-23-[address] Paul Pope Work Phone: [facility] Work Phone: Start: 08-23-2022 End: 08-23-[address] Paul Pope Work Phone: [facility] Start: 07-25-2022 End: 07-25-[address] Paul Pope Work Phone: [facility] Start: 06-03-2022 End: 06-03-[address] Paul Pope Work Phone: [facility] Work Phone: Start: 06-03-2022 End: 06-03-[address] Paul Pope Work Phone: [facility] Start: 05-25-2022 End: 05-25-[address] Paul Ppoe Work Phone: [facility] Work Phone: Start: 05-25-2022 End: 05-25-[address] Paul Pope Work Phone: [facility] Start: 04-26-2022 End: 04-26-[address] Paul Pope Work Phone: [facility] Start: 04-11-2022 End: 04-11-[address] Paul Pope Work Phone: [facility] Start: 02-25-2022 End: 02-25-[address] Paul Pope Work Phone: [facility] Start: 12-23-2021 End: 12-23-[address] Paul Pope Work Phone: [facility] Start: 12-09-2021 Non-patient / Non-visit Dr. Paul Pope Work Phone: [facility] Start: 12-09-2021 End: 12-09-2021 Admission to same day surgery center Dr. Paul Pope Work Phone: [facility]End[facility] Start: 12-06-2021 End: 12-06-[address] Paul Pope Work Phone: [facility] Out Start: 11-12-2021 End: 11-12-[address] Paul Pope Work Phone: [facility] Start: 10-12-2021 End: 10-12-[address] Paul Pope Work Phone: [facility] Start: 09-24-2021 End: 09-24-[address] Paul Pope Work Phone: [facility]-Cat Scan, [facility] Start: 08-31-2021 End: 08-31-[address] Paul Pope Work Phone: [facility] Procedures Date Procedure Procedure Detail Performing Clinician Start: 10-25-2022 CT of abdomen and pelvis without contrast Dr. Paul Pope Work Phone: Start: 08-23-[address] Paul Pope Work Phone: Start: 12-09-[address] Paul Pope Work Phone: Start: 12-08-2021 End: 12-08-[address] Paul Pope Work Phone: Start: 09-24-2021 Computed tomography of abdomen and pelvis with contrast Dr. Paul Pope Work Phone: Lactoferrin measurement Dr. Paul Pope Work Phone: Lactoferrin measurement Dr. Paul Pope Work Phone: Plan of Treatment Date Care Activity Detail Author Start: 01-06-2023 Protein measurement [facility] Start: 12-27-2022 Procedure [facility] Start: 05-25-2022 Procedure [facility] Work Phone: Start: 04-11-2022 Vitamin D, 1,25-dihy droxy measurement [facility] Work Phone: Start: 12-06-2021 Iv infusion therapy/prophylaxis /dx 1st to 1 hr THER/PROPH/DIAG IV INF INIT [facility] Work Phone: Elastase, pancreatic (el-1), fecal; quantitative [facility] Work Phone: Fat [Presence] in Stool [facility] Work Phone: Lactoferrin [Presenc e] in Stool by Immunoassay [facility] Work Phone: Lactoferrin [Presenc e] in Stool by Immunoassay [facility] MR Biliary ducts and Pancreatic duct WO contrast [facility] Work Phone: MR Lumbar spine WO a nd W contrast IV [facility] Patient referral [facility] Work Phone: Procedure [facility] Work Phone: Procedure [facility] Protein measurement [facility] Work Phone: Protein measurement [facility] Vitamin D, 1,25-dihy droxy measurement [facility] Work Phone: Payers Date Payer Category Payer Self-pay [id number] 2023 Private Health Insurance [id number] Unknown [id number] Unknown [id number] [id number] [id number] Unknown [id number] [id number] [id number] Unknown [id number] 2.16.8 [id number] Unknown [id number] [id number] [id number] Social History Date Type Detail Facility Start: 12-07-2021 End: 08-31-2023 Tobacco smoking status NHIS Unknown if ever smoked [facility] Start: 04-26-2019 Non-smoker [facility] Start: 1985 Sex Assigned At Male [facility] Medical Equipment Procedure Code Equipment Code Equipment Origin al Text Equipment Identifier Dates STENT,URETERAL 6 FR PIG 6X26 FDA Start: 05-01-2019 STENT,URETERAL 6 FR PIG 6X26 FDA Start: 05-01-2019 STENT,URETERAL 6 FR PIG 6X26 FDA Start: 05-01-2019 STENT,URETERAL 6 FR PIG 6X26 FDA Start: 05-01-2019 STENT,URETERAL 6 FR PIG 6X26 FDA Start: 05-01-2019 STENT,URETERAL 6 FR PIG 6X26 FDA Start: 05-01-2019 STENT,URETERAL 6 FR PIG 6X26 FDA Start: 05-01-2019 STENT,URETERAL 6 FR PIG 6X26 FDA Start: 05-01-2019 STENT,URETERAL 6 FR PIG 6X26 FDA Start: 05-01-2019 STENT,URETERAL 6 FR PIG 6X26 FDA Start: 05-01-2019 Mental Status Date Assessment Result Facility 12-09-2021 Cognitive function Voice/Name [facility] Work Phone: 12-06-2021 Cognitive function Level Of Cons ciousness Awake;Alert;Appropriate;Follow s Commands [facility] Work Phone: Progress note 08-25-2021 Note Date & Type Note Facility 08-25-2021 Note HNO ID: [id number] Author: Jazmín Balderas Population Health Navigator Service: ? Author Type: [...] future healthcare decisions with a power of attorney law clerk, living will, or advance directives? Referrals: Message Sent to Practice: Navigation Signature: Jazmín Balderas Population Health Navigator August 25, 2021 12:11 PM [facility] Clinical Note 08-25-2021 Note Date & Type Note Facility 08-25-2021 Note Patient Outreach (NE TNAV) KALEIGH BLACK ([id number]) 1985 M Date Time Provider Department 08/25/21 JAZMÍN BALDERAS During your visit today, we recorded the following information about you: Jazmín Balderas Population Health Navigator 08/25/2021 12:12 PM Signed POPULATION HEALTH NAVIGATION OUTREACH Action/FY I spoke with patient and he doesn't [...] future healthcare decisions with a power of attorney law clerk, living will, or advance directives? Referrals: Message Sent to Practice: Navigation Signature: Jazmín Balderas Population Health Navigator August 25, 2021 12:11 PM Allergies As of Date: 08/25/2021 (No Known Allergies) Date Reviewed: 06/15/2020 Reviewed by: [facility] AUTUMN Felix - Fully Assessed Reason [...] right knee [S86.911A] 10/03/2017 Encounter Status:Closed by ANDREY POPULATION HEALTH NAVIGATORJAZMÍN on 08/25/21 [facility] Evaluation note Note Date & Type Note Facility Evaluation note Diagnosis Onset Date Fatty liver disease, nonalcoholic acute Weight loss acute Fatty liver disease, nonalcoholic acute Weight loss acute [facility] Work Phone: Evaluation note Note Date & Type Note Facility Evaluation note Diagnosis Onset Date Crohn's disease acute Fatty liver disease, nonalcoholic acute Crohn's disease acute Fatty liver disease, nonalcoholic acute [facility] Work Phone: Evaluation note Note Date & Type Note Facility Evaluation note Diagnosis Onset Date Crohn's disease acute Fatty liver disease, nonalcoholic acute Crohn's disease acute Diarrhea acute Duodenogastric bile reflux a cute RUQ pain acute [facility] Work Phone: Evaluation note Note Date & Type Note Facility Evaluation note Diagnosis Onset Date Crohn's disease acute Diarrhea acute Duodenogastric bile reflux a cute RUQ pain acute Abnormal biliary HIDA scan a cute Crohn's disease acute IBS (irritable bowel syndrome) acute RUQ pain acute [facility] Work Phone: Evaluation note Note Date & Type Note Facility Evaluation note Diagnosis Onset Date Abnormal biliary HIDA scan a cute Crohn's disease acute IBS (irritable bowel syndrome) acute RUQ pain acute [facility] Work Phone: Evaluation note Note Date & Type Note Facility Evaluation note Diagnosis Onset Date Crohn's disease chronic [facility] Work Phone: Evaluation note Note Date & Type Note Facility Evaluation note Diagnosis Onset Date Right lower quadrant abdominal pain acute RUQ pain acute Crohn's disease chronic Fatty liver disease, nonalcoholic chronic [facility] Work Phone: Summary Purpose Family History No Family History Records Found Relationship Condition Age at Onset Recorded Date/T diane Unknown Family History?No pe rtinent history Unknown April 26, 2019 11:57am Relationship Condition Age at Onset Recorded Date/T diane Unknown Family History?No pe rtinent history Unknown April 26, 2019 10:57am Advance Directives No Advanced Directives Records Found Advance Directive Response Recorded Date/ Time Advance Directives No July 3:38pm Living Will No December 07, 2021 12:30pm Power of Cell Support Operator No December 07 12:30pm Advance Directive Response Recorded Date/ Time Advance Directives No July 2:38pm Living Will No December 07, 2021 11:30am Power of Cell Support Operator No December 07 11:30am Chief Complaint and Reason for Visit Chief Complaint 1 M FU DIARRHEA 6 WK FU INT LABS E ORDER STELARA 520MG Pre-Surgical Testing PAT Reason for Visit Fatty liver disease, nonalcoholic Weight loss Fatty liver disease, nonalcoholic Weight loss Chief Complaint 6 WK FU 8 WK FU E ORDER Reason for Visit Crohn's disease Fatty liver disease, nonalcoholic Crohn's disease Fatty liver disease, nonalcoholic Chief Complaint 8 WK FU E ORDER E ORDER 3 MO FU E-ORDER Reason for Visit Crohn's disease Fatty liver disease, nonalcoholic Crohn's disease Diarrhea Duodenogastric bile reflux RUQ pain Chief Complaint 8 WK FU E ORDER E ORDER 3 MO FU E-ORDER E ORDER Reason for Visit Crohn's disease Fatty liver disease, nonalcoholic Crohn's disease Diarrhea Duodenogastric bile reflux RUQ pain Chief Complaint 3 MO FU E-ORDER E ORDER 2 MO FU RUQ PAIN Reason for Visit Crohn's disease Diarrhea Duodenogastric bile reflux RUQ pain Abnormal biliary HIDA scan Crohn's disease IBS (irritable bowel syndrome) RUQ pain Chief Complaint 2 MO FU RUQ PAIN CALCULUS OF KIDNEY Reason for Visit Abnormal biliary HID A scan Crohn's disease IBS (irritable bowel syndrome) RUQ pain Chief Complaint CALCULUS OF KIDNEY 3 M FU E ORDERS Reason for Visit Crohn's disease Chief Complaint CALCULUS OF KIDNEY 3 M FU E ORDERS INT LABS Reason for Visit Crohn's disease Chief Complaint 5 MO FU INT LABS Reason for Visit Right lower quadrant abdominal pain RUQ pain Crohn's disease Fatty liver disease, nonalcoholic Additional Source Comments (unrecognized sect ion and content) No Status Records FoundNo Status Records Found INFORMATION SOURCE (unrecogn ized section and content) DATE CREATED AUTHOR 09/26/2021 [facility] DATE CREATED AUTHOR AUTHOR'S ORGANIZ ATION 09/26/2024 [facility] Goals (unrecognized section and content) Goals may be documented in a n alternate sectionGoals may be documented in an alternate sectionGoals may be documented in an alternate sectionGoals may be documented in an alternate sectionGoals may be documented in an alternate sectionGoals may be documented in an alternate sectionGoals may be documented in an alternate sectionGoals may be documented in an alternate sectionGoals may be documented in an alternate sectionGoals may be documented in an alternate section Care Teams (unrecognized sec tion and content) Team Status: Active Member Role Status Dates Dr. Tomas Pinzon III, MD Family Provider Active Dr. Paul Ppoe MD Primary Care Provider Active Team Status: Inactive Member Role Status Dates Dr. Paul Pope MD Primary Care Provider, Referring P rovider Active Na Vasques DIV[employer]AD[employer], DIVISION ROADMASTER-C Attending Provider Active Team Status: Inactive Member Role Status Dates Dr. Paul Pope MD Primary Care Provider Active Na Vasques [employer] ROADMA[employer], DIVISION ROADMASTER-C Attending Provider, Referrin g Provider Active Team Status: Inactive Member Role Status Dates Dr. Paul Pope MD Primary Care Provide r, Attending Provider, Referring Provider Active Team Status: Active Member Role Status Dates Dr. Paul Pope MD Primary Care Provide r, Attending Provider, Referring Provider Active Team Status: Inactive Member Role Status Dates Dr. Paul Pope MD Primary Care Provider, Referring P rovider Active Dr. Benedict Canales DO Attending Provider Active Team Status: Inactive Member Role Status Dates Dr. Paul Pope MD Primary Care Provider Active Dr. Benedict Canales DO Attending Provider, Referring Provider Active FOR RECORDS PERTAINING TO PATIENTS WHO ARE [...] BE BASED ON THE PRIMARY CLINICAL RECORDS. [employer] provides no warranty or guarantee of the accuracy or completeness of information in this document.
== END | disposition home or self-care (01) ==
LOC: MTLAB 16:03
PROVIDERS: PCP Family Medicine; Referring Provider Family Medicine; Visit Provider Family Medicine
DX: Z00.8 Encounter for other general examination (principal); K50.90 Crohn's disease, unspecified, without complications; Z00.01 Encounter for general adult medical examination with abnormal findings; E66.812 Obesity, class 2
CPT/HCPCS: 36415; 80053; 80061; 82607; 82728; 84443; 85025